=== PATIENT | male | born 1970 | race African-American/Black ===

== ENCOUNTER 2018-07-01 20:32 | Observation (INO) | payer MEDICARE, OTHER ==
[~2018-07-01] VITALS: Ht 171.4 cm; Wt 124.4 kg
--- NOTE | 2018-07-01 20:45 | NUR ---
pt informed of anticipated wait times for lab/xray. pt denies needs at this time.
[2018-07-01 20:57] LABS: BASOPHILS % (AUTO) 0 % (0-10); EOSINOPHILS # (AUTO) 0.1 10^3/uL (0.0-0.3); EOSINOPHILS % (AUTO) 2 % (0-10); HEMATOCRIT 43 % (40-54); HEMOGLOBIN 14.2 G/DL (13.3-17.7); LYMPHOCYTES # (AUTO) 2.1 X 10^3 (1.0-4.0); LYMPHOCYTES % (AUTO) 26 % (12-44); MEAN CORPUSCULAR HEMOGLOBIN 27 PG (25-34); MEAN CORPUSCULAR HGB CONC 33 G/DL (32-36); MEAN CORPUSCULAR VOLUME 83 FL (80-99); MEAN PLATELET VOLUME 11.3 FL (7.4-10.4); MONOCYTES # (AUTO) 0.5 X 10^3 (0.0-1.0); MONOCYTES % (AUTO) 6 % (0-12); NEUTROPHILS # (AUTO) 5.3 X 10^3 (1.8-7.8); NEUTROPHILS % (AUTO) 66 % (42-75); PLATELET COUNT 229 10^3/uL (130-400); RED CELL DISTRIBUTION WIDTH 15.4 % (10.0-14.5)
[2018-07-01] MEDS ORDERED: CARV6.252 PO (21:00)
[2018-07-01] MEDS ORDERED: HYDR12.56 PO (21:00)
[2018-07-01] MEDS ORDERED: AMLO10TA7 PO (21:00)
--- NOTE | 2018-07-01 21:08 | Diagnostic Imaging Report ---
INDICATION: Hypertension. COMPARISON: No prior examination is available for comparison. EXAMINATION: Single view of the chest was obtained. FINDINGS: There is cardiomegaly. The mediastinum is unremarkable. Lungs are clear. There is no pleural effusion or pneumothorax. IMPRESSION: 1. No acute cardiopulmonary abnormality. 2. Cardiomegaly. Dictated by: Dictated on workstation # [id number]
[2018-07-01] MEDS ORDERED: cloNIDine 0.2 MG (CATAPRES) TAB PO ONE (21:15)
[2018-07-01] MEDS ORDERED: cloNIDine 0.1 MG (CATAPRES) TAB PO ONE (21:15)
[2018-07-01] MEDS ORDERED: ASPIRIN 81 MG CHEW (CHILDREN'S ASA) PO ONE (21:15)
[2018-07-01 21:17] LABS: ALANINE AMINOTRANSFERASE 25 U/L (0-55); ALBUMIN 4.5 GM/DL (3.2-4.5); ALKALINE PHOSPHATASE 65 U/L (40-136); BILIRUBIN,TOTAL 0.5 MG/DL (0.1-1.0); BUN/CREATININE RATIO 10; CALCIUM 9.9 MG/DL (8.5-10.1); CARBON DIOXIDE 23 MMOL/L (21-32); CHLORIDE 102 MMOL/L (98-107); CREATININE SERUM 1.26 MG/DL (0.60-1.30); GFR ESTIMATED > 60; GLUCOSE 151 MG/DL (70-105); POTASSIUM 3.6 MMOL/L (3.6-5.0); SODIUM 139 MMOL/L (135-145); TOTAL PROTEIN 8.5 GM/DL (6.4-8.2)
[2018-07-01] MEDS ORDERED: HYDR50CA3 PO (21:18)
[2018-07-01] MEDS ORDERED: PRAZ2CAP2 PO (21:18)
[2018-07-01] MEDS ORDERED: QUET400T12 PO (21:18)
[2018-07-01] MEDS: NITROGLYCERIN 0.4 MG SL TABS BTL 25'S SL PRN ×2 (21:21→21:27)
[2018-07-01 21:28] LABS: INR 0.9 (0.8-1.4)
--- NOTE | 2018-07-01 21:28 | NUR ---
pt reported nausea after 2nd ntg administered. erp notified, new order recieved.
[2018-07-01 21:29] LABS: MAGNESIUM 2.4 MG/DL (1.8-2.4)
[2018-07-01] MEDS ORDERED: ONDANSETRON 4 MG/2 ML (SDV) Z0FRAN IVP ONE (21:30)
[2018-07-01] MEDS ORDERED: HEParin DRIP 25000 UNIT/500ML 500 ML IV ONE (21:38)
--- NOTE | 2018-07-01 21:38 | NUR ---
zofran given, pt reports chest pain relieved. nausea improved. pt denies needs at this time.
[2018-07-01] MEDS ORDERED: HEParin 1000 UNIT/ML (10ML VIAL) FOR BOLUS IV ONE (21:45)
--- NOTE | 2018-07-01 21:45 | NUR ---
PT GIVEN URINAL, INFORMED OF NEED FOR URINE SPECIMEN.
--- NOTE | 2018-07-01 21:49 | ED Chest Pain ---
General Chief Complaint: Chest Pain Stated Complaint: BP 180/108, CONTINUOUSLY HIGH Nursing Triage Note: HYPERTENSION X4HRS, CHEST WALL TIGHTNESS X1 HR. Nursing Sepsis Screen: No Definite Risk Source: patient Exam Limitations: no limitations History of Present Illness Date Seen by Provider: July 01, 2018 Time Seen by Provider: 20:46 Initial Comments This 48-year-old gentleman presents to the emergency room with complaints of chest tightness and exacerbation of hypertension. He woke up not feeling well this morning. This afternoon he noted his blood pressure to be quite high. He checked his blood pressure because he was not feeling well. He reports compliance with his blood pressure medications this morning but measuring about pressure of 211/135 despite taking his medications. He took extra medications and had a follow-up blood pressure 178/108. He continued to take extra doses of his blood pressure medications totaling amlodipine 50 mg, carvedilol 150 mg, and 75 mg of hydrochlorothiazide. He has excessive urination as result. Patient s oskar he had a "cardiac event" in 2012 after working vigorously cutting wood. Patient sees a Dr. Saleem in [place]. He is in town visiting his sister. He states no definitive cardiac testing was performed when he was assessed for the "cardiac event" in 2012. Patient is a nonsmoker and denies any drug or alcohol use. He has no first-degree family history of heart disease. Allergies and Home Medications Allergies Coded Allergies: No Known Drug Allergies (Unverified , 07/01/18) Home Medications Amlodipine Besylate 10 Mg Tablet, 10 MG PO DAILY, (Reported) Carvedilol 6.25 Mg Tablet, Unknown Dose PO BID, (Reported) Patient Home Medication List Home Medication List Reviewed: Yes Review of Systems Review of Systems Constitutional: no symptoms reported EENTM: No Symptoms Reported Respiratory: No Symptoms Reported Cardiovascular: See HPI Gastrointestinal: No Symptoms Reported Genitourinary: See HPI Musculoskeletal: no symptoms reported Skin: no symptoms reported Psychiatric/Neurological: No Symptoms Reported Endocrine: No Symptoms Reported Hematologic/Lymphatic: No Symptoms Reported Past Adrcmgw-Aokmtc-Auevar Hx Past Med/Social Hx: Reviewed and Corrections made Patient Social History Alcohol Use: Rarely Uses Recreational Drug Use: No Smoking Status: Never a Smoker 2nd Hand Smoke Exposure: No Recent Foreign Travel: No Contact w/Someone Who Travel: No Recent Infectious Disease Expo: No Recent Hopitalizations: No Immunizations Up To Date Tetanus Booster (TDap): Unknown Seasonal Allergies Seasonal Allergies: No Past Medical History Surgeries: Yes (SCROTAL traumatic hematoma evacuation) Respiratory: No Cardiac: Yes Hypertension Neurological: No Genitourinary: No Gastrointestinal: No Musculoskeletal: Yes (L KNEE) Arthritis Endocrine: No HEENT: No Cancer: No Psychosocial: Yes Anxiety, PTSD (from experience) Integumentary: No Blood Disorders: No Physical Exam Vital Signs Vital Signs - First Documented Capillary Refill : Less Than 3 Seconds Height, Weight, BMI Height: 5'7.50" Weight: 248lbs. oz. 112.067865xe; BMI Method:Stated General Appearance: No Apparent Distress, WD/WN HEENT: PERRL/EOMI, Normal ENT Inspection Neck: Normal Inspection Respiratory: Chest Non Tender, Lungs Clear, Normal Breath Sounds, No Accessory Muscle Use, No Respiratory Distress Cardiovascular: Regular Rate, Rhythm, No Edema, No Murmur, Normal Peripheral Pulses Gastrointestinal: Normal Bowel Sounds, Non Tender, Soft Extremity: Normal Capillary Refill, Normal Inspection, Non Tender, No Calf Tenderness, No Pedal Edema, Other (negative Sage) Neurologic/Psychiatric: Alert, Oriented x3, No Motor/Sensory Deficits, Normal Mood/Affect, 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 Skin: Normal Color, Warm/Dry Progress/Results/Core Measures Results/Orders Lab Results Laboratory Tests Test 07/01/18 20:45 Range/Units White Blood Count 8.0 4.3-11.0 10^3/uL Red Blood Count 5.22 4.35-5.85 10^6/uL Hemoglobin 14.2 13.3-17.7 G/DL Hematocrit 43 40-54 % Mean Corpuscular Volume 83 80-99 FL Mean Corpuscular Hemoglobin 27 25-34 PG Mean Corpuscular Hemoglobin Concent 33 32-36 G/DL Red Cell Distribution Width 15.4 H 10.0-14.5 % Platelet Count 229 130-400 10^3/uL Mean Platelet Volume 11.3 H 7.4-10.4 FL Neutrophils (%) (Auto) 66 42-75 % Lymphocytes (%) (Auto) 26 12-44 % Monocytes (%) (Auto) 6 0-12 % Eosinophils (%) (Auto) 2 0-10 % Basophils (%) (Auto) 0 0-10 % Neutrophils # (Auto) 5.3 1.8-7.8 X 10^3 Lymphocytes # (Auto) 2.1 1.0-4.0 X 10^3 Monocytes # (Auto) 0.5 0.0-1.0 X 10^3 Eosinophils # (Auto) 0.1 0.0-0.3 10^3/uL Basophils # (Auto) 0.0 0.0-0.1 10^3/uL Prothrombin Time 13.0 12.2-14.7 SEC INR Comment 0.9 0.8-1.4 Activated Partial Thromboplast Time 33 24-35 SEC Sodium Level 139 135-145 MMOL/L Potassium Level 3.6 3.6-5.0 MMOL/L Chloride Level 102 98-107 MMOL/L Carbon Dioxide Level 23 21-32 MMOL/L Anion Gap 14 5-14 MMOL/L Blood Urea Nitrogen 13 7-18 MG/DL Creatinine 1.26 0.60-1.30 MG/DL Estimat Glomerular Filtration Rate > 60 BUN/Creatinine Ratio 10 Glucose Level 151 H 70-105 MG/DL Calcium Level 9.9 8.5-10.1 MG/DL Corrected Calcium 9.5 8.5-10.1 MG/DL Magnesium Level 2.4 1.8-2.4 MG/DL Total Bilirubin 0.5 0.1-1.0 MG/DL Aspartate Amino Transf (AST/SGOT) 16 5-34 U/L Alanine Aminotransferase (ALT/SGPT) 25 0-55 U/L Alkaline Phosphatase 65 40-136 U/L Myoglobin 38.1 10.0-92.0 NG/ML Troponin I < 0.028 <0.028 NG/ML Total Protein 8.5 H 6.4-8.2 GM/DL Albumin 4.5 3.2-4.5 GM/DL My Orders Orders - PEDRO MON MD Magnesium (07/01/18 21:15) Myoglobin Serum (07/01/18 21:15) Protime With Inr (07/01/18 21:15) Partial Thromboplastin Time (07/01/18 21:15) O2 (07/01/18 21:15) Lipid Panel (07/02/18 06:00) Nitroglycerin 0.4 Mg Btl 25's (Nitrostat (07/01/18 21:15) Aspirin Chewable Tablet (Baby Aspirin Ch (07/01/18 21:15) Ekg Tracing (07/01/18 21:15) Ondansetron Injection (Zofran Injectio (07/01/18 21:30) Drug Screen Stat (Urine) (07/01/18 21:32) Thyroid Analyzer (07/01/18 21:32) Heparin Drip [id number] Unit/500ml (Heparin (07/01/18 21:38) Heparin (Bolus Per Protocol) (Heparin (B (07/01/18 21:45) Medications Given in ED Current Medications Medications Dose Ordered Sig/Radha Route Start Time Stop Time Status Last Admin Dose Admin Aspirin 324 mg ONCE ONCE PO 07/01/18 21:15 07/01/18 21:18 DC 07/01/18 21:21 324 MG Heparin Sodium (Porcine) HEPARIN FULL PROTOC... ONCE ONCE IV 07/01/18 21:45 07/01/18 21:46 DC 07/01/18 21:51 5,000 UNIT Heparin Sodium/ Dextrose 500 ml @ 0 mls/hr Q0M ONCE IV 07/01/18 21:38 07/01/18 21:40 DC 07/01/18 21:51 0 MLS/HR Nitroglycerin 0.4 mg UD PRN SL 07/01/18 21:15 07/01/18 21:27 0.4 MG Ondansetron HCl 8 mg ONCE ONCE IVP 07/01/18 21:30 07/01/18 21:32 DC 07/01/18 21:38 8 MG Vital Signs/I&O 07/01/18 07/01/18 07/01/18 20:37 20:37 21:07 Temp 97.8 97.8 Pulse 68 68 Resp 16 16 B/P (MAP) 171/117 (135) 170/82 (111) Pulse Ox 97 97 O2 Delivery Room Air Room Air Room Air Blood Pressure Mean: 111 Progress Progress Note : Time: 21:44 Progress Note I assumed care of this patient from Neelima Dobson APRN after review of the EKG. There are ST changes most prominent in V1 and V2. ST elevation appears borderline in morphology but in the context of his chest pain they are concerning. Patient received aspirin and nitroglycerin 2 doses. His pain improved from 6/10 down to 2/10 and his blood pressure dropped significantly. I discussed the case with Dr. Beard who also digitally reviewed the EKGs. Plan at this time is to take him to the [facility] for further evaluation. Heparin drip will be initiated in the meantime. EKG #1: EKG Time: 21:03 Rate: 67 Rhythm: Normal Sinus Intervals: Normal Comment Sinus rhythm with ST elevation of borderline amplitude and morphology most prominent in V1 and V2. No abnormal intervals. LVH noted. EKG #2: EKG Time: 21:33 Rate: 58 Rhythm: Normal Sinus Intervals: Normal Comment Sinus rhythm with ST elevation of borderline amplitude and morphology most prominent in V1 and V2. ST elevation slightly more prominent than on the prior EKG. No abnormal intervals. LVH noted. Diagnostic Imaging Diagonstic Imaging: Xray Plain Films/CT/US/NM/MRI: chest Comments NAME: TAMMY GARNICA [facility] REC#: [id number] PT STATUS: DEP ER : 1970 PHYSICIAN: NEELIMA LOVE ADMIT DATE: 07/01/18/ER Signed Date of Exam: 07/01/18 CHEST 1 VIEW, AP/PA ONLY INDICATION: Hypertension. COMPARISON: No prior examination is available for comparison. EXAMINATION: Single view of the chest was obtained. FINDINGS: There is cardiomegaly. The mediastinum is unremarkable. Lungs are clear. There is no pleural effusion or pneumothorax. IMPRESSION: 1. No acute cardiopulmonary abnormality. 2. Cardiomegaly. Dictated by: Dictated on workstation # [id number] Dict: 07/01/182104 Trans: 07/01/182120 Interpreted by: TANNER CHRIS MD Electronically signed by: TANNER CHRIS MD 07/01/182120 Departure Impression Primary Impression: Hypertensive emergency Additional Impressions: Chest pain Qualified Codes: R07.9 - Chest pain, unspecified ST elevation Disposition: 01 HOME, SELF-CARE Condition: Improved Admissions Decision to Admit Reason: Admit from ER (General) Decision to Admit/Date: July 01, 2018 Time/Decision to Admit Time: 21:44 Departure-Patient Inst. Referrals: NO,LOCAL PHYSICIAN (PCP) Primary Care Physician PEDRO MON MD July 01, 2018 21:49
--- NOTE | 2018-07-01 21:50 | NUR ---
2nd iv site obtained. pt denies needs.
--- NOTE | 2018-07-01 22:26 | NUR ---
DR WEINER HERE SEEING PATIENT.
[2018-07-01] MEDS ORDERED: fentaNYL INJECTION 100 MCG/2 ML AMP ONE (22:45)
[2018-07-01] MEDS ORDERED: MIDAZOLAM 5 MG/5 ML (VERSED) VIAL ONE (22:45)
[2018-07-01] MEDS ORDERED: HEParin (CATH LAB) 2,000 ML IV ONE (22:45)
[2018-07-01] MEDS ORDERED: LIDOCAINE 1% INJ 20 ML 20 ML VIAL ONE (22:45)
[2018-07-01] MEDS ORDERED: NS IV 1000 ML 1,000 ML ONE (22:45)
--- NOTE | 2018-07-01 22:45 | Cardiology History & Physical ---
HPI-Cardiology Cardiology H&P Date of Admission 07/01/18 Primary Care Physician Alba,Local Physician Attending Physician Rashel Beard MD, MA FACP [facility] Consulting Physician RAJAT CC: Chest pain, uncontrolled hypertension HPI: 48 yo man who is visiting from [place] and who noted his bp to be markedly elevated earlier today. This caused him anxiety and he has been taking several of his bp med. According to him he took 150 mg carvedilol at home earlier today and also several tabs of HCTZ. He began to have midsternal chest discomfort with some radiation to shoulders and feeling of anxiety. This lasted a few hours. In the ER, he received s/l NTG and symptoms gradually subsided. Still has some waxing and waning chest pressure. Is concerned that the chest discomfort is coming from his heart. Denies palp or syncope. Has chronic mild to mod exertional shortness of breath. Review of Systems-Cardiology Review of Systems Constitutional: malaise; No weight loss, No weight gain Eyes: No vision change Ears/Nose/Throat: No ear discharge, No nasal drainage, No recent hearing loss Respiratory: As described under HPI Cardiovascular: As described under HPI Gastrointestinal: No constipation, No diarrhea, No nausea, No vomiting Genitourinary: No dysuria, No hematuria, No urine frequency changes Musculoskeletal: No back pain, No joint pain Skin: No rash, No ulcerations Psychiatric/Neurological: No seizure, No focal weakness Hematologic: No bleeding abnormalities CMG-Skianb-Xeqrzv Hx Patient Social History Alcohol Use: Rarely Uses Recreational Drug Use: No Smoking Status: Never a Smoker 2nd Hand Smoke Exposure: No Recent Foreign Travel: No Recent Infectious Disease Expo: No Hospitalization with Isolation: Denies Immunizations Up To Date Tetanus Booster (TDap): Unknown Past Medical History PMH As described under Assessment. Allergies and Home Medications Allergies Coded Allergies: No Known Drug Allergies (Unverified , 07/01/18) Home Medications Amlodipine Besylate 10 Mg Tablet, 10 MG PO DAILY, (Reported) Carvedilol 6.25 Mg Tablet, Unknown Dose PO BID, (Reported) Patient Home Medication List Home Medication List Reviewed: Yes Physical Exam-Cardiology Physical Exam Vital Signs/I&O 07/01/18 07/01/18 07/01/18 20:37 20:37 21:07 Temp 97.8 97.8 Pulse 68 68 Resp 16 16 B/P (MAP) 171/117 (135) 170/82 (111) Pulse Ox 97 97 O2 Delivery Room Air Room Air Room Air Capillary Refill : Less Than 3 Seconds Constitutional: AAO x 3, well-developed, well-nourished HEENT: EOMI, hearing is well preserved, oral hygience is good; No xanthelasmas are seen Neck: No carotid bruit; carotid pulses are 2 + bilaterally Respiratory: No accessory muscle use; other (good bilat air entry) Cardiovascular: regular rate-rhythm, S1 and S2; No systolic murmur Gastrointestinal: No tender; soft; No guarding; audible bowel sounds Extremities: No clubbing, No cyanosis, No significant edema Neurologic/Psychiatric: oriented x 3, grossly intact, power is 5/5 both on sides Skin: No rash on exposed areas, No ulcerations on exposed areas Data Review Labs Laboratory Tests 07/01/18 20:45: White Blood Count 8.0, Red Blood Count 5.22, Hemoglobin 14.2, Hematocrit 43, Mean Corpuscular Volume 83, Mean Corpuscular Hemoglobin 27, Mean Corpuscular Hemoglobin Concent 33, Red Cell Distribution Width 15.4H, Platelet Count 229, Mean Platelet Volume 11.3H, Neutrophils (%) (Auto) 66, Lymphocytes (%) (Auto) 26, Monocytes (%) (Auto) 6, Eosinophils (%) (Auto) 2, Basophils (%) (Auto) 0, Neutrophils # (Auto) 5.3, Lymphocytes # (Auto) 2.1, Monocytes # (Auto) 0.5, Eosinophils # (Auto) 0.1, Basophils # (Auto) 0.0, Prothrombin Time 13.0, INR Comment 0.9, Activated Partial Thromboplast Time 33, Sodium Level 139, Potassium Level 3.6, Chloride Level 102, Carbon Dioxide Level 23, Anion Gap 14, Blood Urea Nitrogen 13, Creatinine 1.26, Estimat Glomerular Filtration Rate > 60, BUN/Creatinine Ratio 10, Glucose Level 151H, Calcium Level 9.9, Corrected Calcium 9.5, Magnesium Level 2.4, Total Bilirubin 0.5, Aspartate Amino Transf (AST/SGOT) 16, Alanine Aminotransferase (ALT/SGPT) 25, Alkaline Phosphatase 65, Myoglobin 38.1, Troponin I < 0.028, Total Protein 8.5H, Albumin 4.5, TSH [place] Testing 1.20 Laboratory Tests 07/01/18 20:45 A/P-Cardiology Assessment/Admission Diagnosis Chest pain Uncontrolled hypertension Abnormal ECG: LVH with repol abn vs cor ischemia Admission Status: Observation Discussion and Recomendations * Given multiple risk factors and continuing chest pains, it appears reasonable to proceed with card cath * I had detailed discussion with him. I explained the procedure, rationale, risks, benefits, potential complications and alternatives of cath and possible ad hoc cor intervention. He understands and wishes to proceed * For treatment of hypertension, we are continuing his home meds and adding hydr alazine * Further recs to be based on hosp course Clinical Quality Measures AMI/AHF: ASA po Prior to arrival: RASHEL Snell MD FACP FAC CCDS July 01, 2018 22:45
[2018-07-01] MEDS ORDERED: ACETAMINOPHEN 325 MG TABLET PO PRN (23:00)
[2018-07-01] MEDS ORDERED: TEMAZEPAM 15 MG (RESTORIL) CAP PO PRN (23:00)
--- NOTE | 2018-07-01 23:00 | NUR ---
PT DEPARTED WITH QUALITY ASSOCIATE STAFF.
--- NOTE | 2018-07-01 23:23 | Cardiac Procedure Note-CS/ASA ---
Pre-Procedure Note Pre-Op Procedure Note H&P Reviewed The H&P was reviewed, patient examined and no changes noted. Date H&P Reviewed: July 01, 2018 Time H&P Reviewed: 23:23 Conscious Sedation Pre-Proced Time 23:23 ASA Score 3 For ASA 3 and 4: Consider anesthesia and medical clearance. Also, for patients with a history of failed moderate sedation consider anesthesia. Airway Lungs Heart ASA score ASA 1: a normal healthy patient ASA 2: a patient with a mild systemic disease (mid diabetes, controlled hypertension, obesity ASA 3: a patient with a severe systemic disease that limits activity (angina, COPD, prior Myocardial infarction) ASA 4: a patient with an incapacitating disease that is a constant threat to life (CHF, renal failure) ASA 5: a moribund patient not expected to survive 24 hrs. (ruptured aneurysm) ASA 6: a declared brain- patient whose organs are being harvested. For emergent operations, add the letter E after the classification Mallampati Classification Grade 2 Sedation Plan Analgesia, Amnesia, Plan communicated to team members, Discussed options with patient/fam, Discussed risks with patient/fam The patient is an appropriate candidate to undergo the planned procedure, sedation, and anesthesia. The patient immediately re-assessed prior to indication. PAMELA LAZO MD FACP FAC CCDS July 01, 2018 23:23
[2018-07-01] MEDS ORDERED: NS IV 1000 ML 1,000 ML IV SCH (23:49)
[2018-07-02] VITALS (12 sets, daily range): BP systolic 115–153; BP diastolic 70–98
[2018-07-02] MEDS ORDERED: PATIENT MAY USE OWN MEDS, ALL PO SCH
[2018-07-02 03:54] LABS: MEAN PLATELET VOLUME 11.6 FL (7.4-10.4); RED CELL DISTRIBUTION WIDTH 15.5 % (10.0-14.5); WHITE BLOOD COUNT 8.1 10^3/uL (4.3-11.0)
[2018-07-02 04:12] LABS: BUN/CREATININE RATIO 11; CALCIUM 9.3 MG/DL (8.5-10.1); CARBON DIOXIDE 20 MMOL/L (21-32); CHLORIDE 104 MMOL/L (98-107); CHOLESTEROL 203 MG/DL (< 200); CREATININE SERUM 1.22 MG/DL (0.60-1.30); GFR ESTIMATED > 60; GLUCOSE 121 MG/DL (70-105); HDL CHOLESTEROL 39 MG/DL (40-60); POTASSIUM 3.6 MMOL/L (3.6-5.0); SODIUM 137 MMOL/L (135-145); TRIGLYCERIDES 190 MG/DL (<150); VLDL CHOLESTEROL 38 MG/DL (5-40)
--- NOTE | 2018-07-02 04:48 | CARDIAC CATHETERIZATION ---
DATE OF SERVICE: 07/01/2018 CARDIAC CATHETERIZATION REPORT HISTORY OF PRESENT ILLNESS: The patient is a 48-year-old man who has multiple coronary artery disease risk factors, who presented to the emergency room with the chest pain and uncontrolled hypertension. Echocardiogram was consistent with coronary ischemia. Due to continuing symptoms, cardiac catheterization was carried out. Informed consent was obtained. PROCEDURES: She was brought to the cardiac catheterization laboratory. Right groin was prepared and draped in the usual sterile fashion. Lidocaine 1% was used for local anesthesia. Modified Seldinger technique was used to advance a 6-Bahamian sheath into the right femoral artery. A 6-Bahamian JL4 catheter for left coronary angiography, 6-Bahamian JR4 catheter for right coronary angiography and 6-Bahamian pigtail catheter was used for left heart catheterization and left ventricular angiography. Pigtail was pulled back to the aortic arch. Aortic arch angiography was performed. Pigtail catheter was removed. Angiography of the right femoral artery was carried out through the sheath. Mynx was used to achieve hemostasis. He tolerated the procedure well. HEMODYNAMICS: Left ventricular end-diastolic pressure following coronary angiography was 23 mmHg. There is no significant pressure gradient on pullback across the aortic valve. Ascending aortic pressure was 117/82 with a mean of 100 mmHg. CORONARY ANGIOGRAPHY: Left main coronary artery is free of significant disease. Left anterior descending, left circumflex and right coronary arteries do not exhibit angiographically significant disease. Right coronary artery is dominant. Flow through the vessel is somewhat sluggish. LEFT VENTRICULAR ANGIOGRAPHY: Left ventricular angiography was carried out in right anterior oblique projection. Global left ventricular systolic function is normal. No regional wall motion abnormalities were seen. Left ventricular ejection fraction approximately 60% to 65%. AORTIC ARCH ANGIOGRAPHY: Aortic arch angiography does not indicate any significant aneurysm or dissection of the aortic arch or the descending thoracic aorta. No coarctation of the aorta is seen. Neck arteries, to the extent visualized, do not exhibit significant disease. CONCLUSIONS: 1. No angiographically significant coronary artery disease. 2. Normal global left ventricular systolic function with ejection fraction 65%. 3. Elevated left ventricular end-diastolic pressure. DISCUSSION AND RECOMMENDATIONS: Based on results of the study, chest discomfort does not appear to be of coronary origin. Continuing risk factor modification is advised. Job ID: [id number] DocumentID: [id number] Dictated Date: 07/01/2018 23:45:56 Recruitment Intern Date: 07/02/2018 04:48:02 Dictated By: PAMELA LAZO MD, MA, FACP, FACC, MTDD
[2018-07-02] MEDS ORDERED: hydrALAZINE (APRESOLINE) 25 MG TAB PO SCH (06:00)
[2018-07-02] MEDS ORDERED: HYDROCHLOROTHIAZIDE 25 MG (HCTZ) TAB PO SCH (09:00)
[2018-07-02] MEDS ORDERED: amLODIPine 10 MG (NORVASC) TAB PO SCH (09:00)
[2018-07-02] MEDS ORDERED: CARVEDILOL 12.5 MG (COREG) TABLET PO SCH (09:00)
[2018-07-02] MEDS ORDERED: ASPIRIN 81 MG CHEW (CHILDREN'S ASA) PO SCH (09:00)
[2018-07-02] MEDS ORDERED: HYDR-3923 PO (11:17)
[2018-07-02] MEDS ORDERED: CARV12.53 PO (11:17)
[2018-07-02] MEDS ORDERED: HYDR12.56 PO (11:17)
--- NOTE | 2018-07-02 11:25 | Progress Note-Cardiology ---
Cardiology SOAP Progress Note Subjective: No cp or palp or syncope or shortness of breath or groin discomfort Wishes to go home Objective: I&O/Vital Signs 07/02/18 07/02/18 07/02/18 07/02/18 00:00 00:15 00:30 00:45 Temp 97.0 Pulse 59 59 58 Resp 11 13 14 B/P (MAP) 128/86 (100) 119/75 (90) 128/70 (89) Pulse Ox 98 98 98 O2 Delivery Room Air Room Air Room Air Room Air 07/02/18 07/02/18 07/02/18 07/02/18 01:00 01:00 01:30 02:00 Pulse 57 58 74 55 Resp 14 18 13 B/P (MAP) 133/77 (95) 131/88 (102) 121/93 (102) Pulse Ox 98 98 98 O2 Delivery Room Air Room Air Room Air 07/02/18 07/02/18 07/02/18 07/02/18 03:00 04:00 05:00 06:00 Pulse 56 66 62 60 Resp 13 24 13 14 B/P (MAP) 129/83 (98) 148/89 (108) 153/98 (116) 140/88 (105) Pulse Ox 99 91 98 97 O2 Delivery Room Air Room Air Room Air Room Air 07/02/18 07/02/18 07/02/18 07/02/18 07:00 07:00 08:00 08:26 Temp 97.3 Pulse 72 57 72 Resp 14 18 B/P (MAP) 139/98 (112) 115/72 (86) Pulse Ox 99 99 O2 Delivery Room Air Room Air Room Air Weight (Pounds): 274 Weight (Ounces): 5.0 Weight (Calculated Kilograms): 124.972177 Condition: DP/PT pulses palpable Bruising: mild bruising Constitutional: AAO x 3, well-developed, well-nourished Respiratory: other Cardiovascular: regular rate-rhythm, S1 and S2 Gastrointestional: soft, audible bowel sounds Extremities: No clubbing, No cyanosis, No significant edema Neurologic/Psychiatric: oriented x 3, grossly intact, power is 5/5 both on sides Skin: No rash on exposed areas, No ulcerations on exposed areas Results/Procedures: Labs Laboratory Tests 07/01/18 20:45: White Blood Count 8.0, Red Blood Count 5.22, Hemoglobin 14.2, Hematocrit 43, Mean Corpuscular Volume 83, Mean Corpuscular Hemoglobin 27, Mean Corpuscular Hemoglobin Concent 33, Red Cell Distribution Width 15.4H, Platelet Count 229, Mean Platelet Volume 11.3H, Neutrophils (%) (Auto) 66, Lymphocytes (%) (Auto) 26, Monocytes (%) (Auto) 6, Eosinophils (%) (Auto) 2, Basophils (%) (Auto) 0, Neutrophils # (Auto) 5.3, Lymphocytes # (Auto) 2.1, Monocytes # (Auto) 0.5, Eosinophils # (Auto) 0.1, Basophils # (Auto) 0.0, Prothrombin Time 13.0, INR Comment 0.9, Activated Partial Thromboplast Time 33, Sodium Level 139, Potassium Level 3.6, Chloride Level 102, Carbon Dioxide Level 23, Anion Gap 14, Blood Urea Nitrogen 13, Creatinine 1.26, Estimat Glomerular Filtration Rate > 60, BUN/Creatinine Ratio 10, Glucose Level 151H, Calcium Level 9.9, Corrected Shalom cium 9.5, Magnesium Level 2.4, Total Bilirubin 0.5, Aspartate Amino Transf (AST/SGOT) 16, Alanine Aminotransferase (ALT/SGPT) 25, Alkaline Phosphatase 65, Myoglobin 38.1, Troponin I < 0.028, Total Protein 8.5H, Albumin 4.5, TSH [place] Testing 1.20 07/02/18 03:18: White Blood Count 8.1, Red Blood Count 4.93, Hemoglobin 13.0L, Hematocrit 41, Mean Corpuscular Volume 84, Mean Corpuscular Hemoglobin 26, Mean Corpuscular Hemoglobin Concent 32, Red Cell Distribution Width 15.5H, Platelet Count 210, Mean Platelet Volume 11.6H, Sodium Level 137, Potassium Level 3.6, Chloride Level 104, Carbon Dioxide Level 20L, Anion Gap 13, Blood Urea Nitrogen 14, Creatinine 1.22, Estimat Glomerular Filtration Rate > 60, BUN/Creatinine Ratio 11, Glucose Level 121H, Calcium Level 9.3, Triglycerides Level 190H, Cholesterol Level 203H, LDL Cholesterol Direct 140H, VLDL Cholesterol 38, HDL Cholesterol 39L Laboratory Tests 07/01/18 20:45 07/02/18 03:18 A/P: Assessment: Chest pain, etiology undetermined, now resolved Cardiac cath on 07/01/18: No significant CAD, LVEF 65%, elevated LVEDP (23 mmHg) Hypertension with hypertensive cardiovascular disease (elevated LVEDP, LVH with repolarization abnormality on ECG) Obesity with BMI approx 42 Plan: * I reviewed and discussed with him the findings of cardiac cath. Focus of management is on risk factor mod. This was discussed. Close outpatient f/u is advised with is PCP in [place] * We are continuing current antihypertensive regimen because bp is currently well controlled (see discharge orders) Clinical Quality Measures AMI/AHF: ASA po Prior to arrival: PAMELA Snell MD FACP FACC CCDS July 02, 2018 11:25
--- NOTE | 2018-07-02 11:29 | Discharge Inst-Cardiology ---
Discharge Inst-Cardiac Discharge Medications New Medications: Carvedilol (Carvedilol) 12.5 Mg Tablet 25 MG PO BID for 30 Days, #60 TAB 1 Refill Hydralazine HCl (Hydralazine HCl) 25 Mg Tablet 50 MG PO Q8HR for 30 Days, #90 TAB 1 Refill Hold if systolic blood pressure is less than 120 mmHg Changed Medications: Hydrochlorothiazide (Hydrochlorothiazide) 12.5 Mg Tablet 12.5 MG PO DAILY for 30 Days, #30 TAB 1 Refill (Changed from: Unknown Dose ; Refills: ) Continued Medications: Amlodipine Besylate (Amlodipine Besylate) 10 Mg Tablet 10 MG PO DAILY, TAB Hydroxyzine Pamoate (Hydroxyzine Pamoate) 50 Mg Capsule 50 MG PO BID, CAP Quetiapine Fumarate (Quetiapine Fumarate) 400 Mg Tablet 400 MG PO BID, TAB Discontinued Medications: Carvedilol (Carvedilol) 6.25 Mg Tablet Unknown Dose PO BID, TAB Prazosin HCl (Prazosin HCl) 2 Mg Capsule 6 MG PO DAILY, CAP PAMELA LAZO MD FACP FAC CCDS July 02, 2018 11:29
--- NOTE | 2018-07-02 11:30 | Discharge Inst-Post CATH ---
Discharge Inst-CATH/EP Post Cardiac Cath/EP D/C Inst Follow Up/Plan F/u with Dr Beard next week if still in [place], [place] F/u with family physician next week if returned to [place] ACTIVITY * Go Home directly and rest. * Limit activity of the leg (or wrist if it was used) for 7 days including aerobics, swimming, jogging, bicycling, etc. * Restrict stair-climbing for 7 days if possible, if not, climb up with your non-cath leg, then bring together on the same step. * Avoid lifting, pushing, pulling or excessive movement of the affected extremity for 7 days. * Customary sexual activity may be resumed after 2 days-use caution not to use a position that strains or causes pain to the affected extremity. * No driving for 24 hours. * NO SMOKING. * Avoid straining for bowel movements for 7 days. * Gentle walking on level ground is allowed. * Returning to work will depend on the type of procedure and the results. Your doctor will discuss this with you. CALL YOUR DOCTOR FOR ANY OF THE FOLLOWING: *If bleeding from the puncture site occurs- Apply gentle pressure to site with clean cloth and call your doctor or EMS. * If a knot or lump forms under the skin, increases in size, or causes pain. * If bruising appears to be worsening or moving further down your leg instead of disappearing. * Temperature above 101 F. CARE OF YOUR GROIN INCISION; * Bruising or purple discoloration of the skin near the puncture site is common. * You may shower only, no bathtub bathing for 5 days. Be careful to avoid slipping as your leg may feel stiff. * If a closure device was used on your femoral artery, please see the attached guide regarding care of the device and your leg. * Leave dressing on FOR 24 hours. CARE OF YOUR WRIST INCISION; * Bruising or purple discoloration of the skin near the puncture site is common. * You may shower. * DO NOT submerge wrist. * Leave dressing on FOR 24 hours. PAMELA BEARD MD FACP FAC CCDS July 02, 2018 11:30
[2018-07-02] MEDS ORDERED: KCL 20 MEQ TAB (K-DUR) PO NR (11:38)
--- NOTE | 2018-07-02 17:14 | Cardiology Discharge Summary ---
Diagnosis/Chief Complaint Date of Admission July 01, 2018 at 23:59 Date of Discharge July 02, 2018 at 12:05 Final/Discharge Diagnosis Chest pain, etiology undetermined, now resolved Cardiac cath on 07/01/18: No significant CAD, LVEF 65%, elevated LVEDP (23 mmHg) Hypertension with hypertensive cardiovascular disease (elevated LVEDP, LVH with repolarization abnormality on ECG) Echo of 07/02/18: mod concentric LVH, LVEF 60-65%, mildly dilated LA Obesity with BMI approx 42 Chief Complaint/HPI Chief Complaint/HPI CC: Chest pain, uncontrolled hypertension HPI: 48 yo man who is visiting from [place] and who noted his bp to be markedly elevated earlier today. This caused him anxiety and he has been taking several of his bp med. According to him he took 150 mg carvedilol at home earlier today and also several tabs of HCTZ. He began to have midsternal chest discomfort with some radiation to shoulders and feeling of anxiety. This lasted a few hours. In the ER, he received s/l NTG and symptoms gradually subsided. Still has some waxing and waning chest pressure. Is concerned that the chest discomfort is coming from his heart. Denies palp or syncope. Has chronic mild to mod exertional shortness of breath. Discharge Summary Procedures None. Discussion & Recommendations Home Medications Reviewed patient Home Medication Reconciliation performed by pharmacy medication reconciliations performing arts technicians and/or nursing. Patients Allergies have been reviewed. Discharge Home Medications: Reviewed and agree with Discharge Medication list on patient's Discharge Instruction sheet Instructions to patient/family F/u with Dr Beard next week if still in [place], [place] F/u with family physician next week if returned to [place] Clinical Quality Measures AMI/AHF: ASA po Prior to arrival: No DVT/VTE Risk/Contraindication: Risk Factor Score Per Nursin RFS Level Per Nursing on Admit: 1=Low/No VTE PPX PAMELA BEARD MD FACP FAC CCDS July 02, 2018 17:14
== END 2018-07-02 11:11 | disposition home or self-care (01) ==
LOC: ER 20:34 → CATH 22:13 → ICU 23:00 → CATH 23:06 → ICU 23:59 → UNDOADMIN 23:59 → UNDODISIN 07-02 12:05
PROVIDERS: ADMIT Internal Medicine Cardiovascular Disease; ATTEND Internal Medicine Cardiovascular Disease
DX: R07.9 Chest pain, unspecified (principal); I11.9 Hypertensive heart disease without heart failure; E66.9 Obesity, unspecified; Z68.41 Body mass index [BMI] 40.0-44.9, adult; Z79.899 Other long term (current) drug therapy; M19.91 Primary osteoarthritis, unspecified site; F41.9 Anxiety disorder, unspecified; F43.10 Post-traumatic stress disorder, unspecified
CPT/HCPCS: 36221; 36415; 71045; 80048; 80053; 80061; 83735; 83874; 84443; 84484; 85025; 85027; 85610; 85730; 93005; 93041; 93306; 93458; 96374; 96375

== ENCOUNTER 2022-05-24 20:19 | Emergency (ER) | payer MEDICARE, MEDICAID ==
[~2022-05-24] VITALS: Ht 170 cm; Wt 124.0 kg
[~2022-05-24 20:19] MED LIST: AMLO-251 PO; CARV12.53 PO; CARV6.252 PO; HYDR-3923 PO; HYDR12.56 PO; HYDR50CA3 PO; PRAZ2CAP2 PO; QUET400T13 PO
[2022-05-24] MEDS ORDERED: NS IV 1000 ML 1,000 ML IV STA (20:43)
[2022-05-24] MEDS ORDERED: hydrALAZINE (APESOLINE) 20 MG/ML VIAL IV ONE (20:45)
--- NOTE | 2022-05-24 20:47 | ED General ---
General Chief Complaint: Glucose Problems Stated Complaint: ELEV BLOOD SUGAR Nursing Triage Note: pt presents to ED with high blood sugar >290. pt has been out of meds x 2 days, delivery delay d/t . pt has confirmation that meds will arrive tomorrow but triage nurse told pt to come in. BP elevated at triage but pt has no complaints. Source of Information: Patient Exam Limitations: No Limitations History of Present Illness Date Seen by Provider: May 24, 2022 Time Seen by Provider: 20:45 Initial Comments Patient is a 52-year-old male with a history of diabetes, coronary artery disease, hypertension who presents ED for elevated blood sugar and elevated blood pressure. Patient states he has been out of his Jardiance and metformin over the past 2 days. States his blood sugar read as high as 293 today. States around 2:00 started having some lightheadedness, blurred vsion, and headache and took his blood sugar which read high. Did not eat this afternoon and evening and still read around 270. Type II diabetic denies history of insulin use. Patient also noted his blood pressure felt high. Patient has been out of his blood pressure medication over the past 2 days as well. Believes he is on amlodipine, lisinopril and Lasix. He is scheduled to get his medication tomorrow. Patient states the dizziness, lightheadedness, blurred vision and headache improved. Denies of any visual changes, chest pain, cough, shortness of breath, Arslan pain, leg swelling. No known history of kidney disease. Allergies and Home Medications Allergies Coded Allergies: No Known Drug Allergies (Unverified , 07/01/18) Patient Home Medication List Home Medication List Reviewed: Yes Amlodipine Besylate (Amlodipine Besylate) 10 Mg Tablet, 10 MG PO DAILY, (Reported) Entered as Reported by: DANIKA MOISE on 07/01/182099 Carvedilol (Carvedilol) 12.5 Mg Tablet, 25 MG PO BID Prescribed by: PAMELA LAZO on 07/02/18 111 Hydralazine HCl (Hydralazine HCl) 25 Mg Tablet, 50 MG PO Q8HR Prescribed by: PAMELA LAZO on 07/02/18 1117 Hydrochlorothiazide (Hydrochlorothiazide) 12.5 Mg Tablet, 12.5 MG PO DAILY Prescribed by: PAMELA LAZO on 07/02/18 1117 Hydroxyzine Pamoate (Hydroxyzine Pamoate) 50 Mg Capsule, 50 MG PO BID, (Reporte d) Entered as Reported by: DANIKA MOISE on 07/01/182117 Quetiapine Fumarate (Quetiapine Fumarate) 400 Mg Tablet, 400 MG PO BID, (Reported) Entered as Reported by: DANIKA MOISE on 07/01/182117 Review of Systems Review of Systems Constitutional: No chills, No diaphoresis, No malaise, No weakness EENTM: blurred vision; No hearing loss, No double vision Respiratory: No cough, No dyspnea on exertion Cardiovascular: No chest pain Gastrointestinal: No RUQ, No abdominal pain, No diarrhea, No nausea, No vomiting Genitourinary: No decreased output, No discharge Musculoskeletal: No back pain, No joint pain Skin: No change in color Psychiatric/Neurological: Headache, Other (Lightheadedness, dizziness) All Other Systems Reviewed Negative Unless Noted: Yes Past Uhnuqie-Cjklpd-Lylgsn Hx Patient Social History Tobacco Use?: No Substance use?: No Alcohol Use?: No Pt feels they are or have been: No Immunizations Up To Date Tetanus Booster (TDap): Unknown Influenza Vaccine Up-to-Date: No; Not Current Seasonal Allergies Seasonal Allergies: No Past Medical History Surgeries: Yes (SCROTAL traumatic hematoma evacuation) Respiratory: No Cardiac: Yes Hypertension Neurological: No Genitourinary: No Gastrointestinal: No Musculoskeletal: Yes (L KNEE) Arthritis Endocrine: No HEENT: No Cancer: No Psychosocial: Yes Anxiety, PTSD Integumentary: No Blood Disorders: No Physical Exam Vital Signs Vital Signs - First Documented 05/24/22 20:36 Temp 36.2 Pulse 101 Resp 20 B/P (MAP) 208/140 (162) Pulse Ox 98 O2 Delivery Room Air Capillary Refill : Less Than 3 Seconds Height, Weight, BMI Height: 5'7.50" Weight: 274lbs. 5.0oz. [id number]; 42.00 BMI Method:Stated General Appearance: No Apparent Distress, WD/WN Eyes: Bilateral Eye Normal Inspection, Bilateral Eye PERRL, Bilateral Eye EOMI HEENT: PERRL/EOMI, TMs Normal, Normal ENT Inspection, Pharynx Normal Neck: Full Range of Motion, Normal Inspection, Non Tender, Supple Respiratory: Chest Non Tender, Lungs Clear, Normal Breath Sounds, No Accessory Muscle Use, No Respiratory Distress Cardiovascular: Regular Rate, Rhythm, No Edema, No Gallop, No JVD, No Murmur Gastrointestinal: Normal Bowel Sounds, No Organomegaly, No Pulsatile Mass, Non Tender Back: Normal Inspection, No CVA Tenderness, No Vertebral Tenderness Extremity: Normal Capillary Refill, Normal Inspection, Normal Range of Motion, Non Tender Neurologic/Psychiatric: Alert, Oriented x3, No Motor/Sensory Deficits, Normal Mood/Affect, commodities trader II-XII Norm as Tested Skin: Normal Color, Warm/Dry Progress/Results/Core Measures Suspected Sepsis SIRS Temperature: Pulse: 101 Respiratory Rate: 20 Laboratory Tests 05/24/22 20:40: White Blood Count 7.6 Blood Pressure 208 /140 Mean: 162 Laboratory Tests 05/24/22 20:40: Creatinine 1.85H, Platelet Count 257, Total Bilirubin 0.3 Results/Orders Lab Results Laboratory Tests Test 05/24/22 20:30 05/24/22 20:40 05/24/22 22:12 Range/Units Glucometer 266 H 222 H 70-110 MG/DL White Blood Count 7.6 4.3-11.0 10^3/uL Red Blood Count 4.87 4.30-5.52 10^6/uL Hemoglobin 12.6 L 13.3-17.7 g/dL Hematocrit 40 40-54 % Mean Corpuscular Volume 81 80-99 fL Mean Corpuscular Hemoglobin 26 25-34 pg Mean Corpuscular Hemoglobin Concent 32 32-36 g/dL Red Cell Distribution Width 18.8 H 10.0-14.5 % Platelet Count 257 130-400 10^3/uL Mean Platelet Volume 10.5 9.0-12.2 fL Immature Granulocyte % (Auto) 0 % Neutrophils (%) (Auto) 63 42-75 % Lymphocytes (%) (Auto) 24 12-44 % Monocytes (%) (Auto) 7 0-12 % Eosinophils (%) (Auto) 5 0-10 % Basophils (%) (Auto) 1 0-10 % Neutrophils # (Auto) 4.8 1.8-7.8 10^3/uL Lymphocytes # (Auto) 1.8 1.0-4.0 10^3/uL Monocytes # (Auto) 0.5 0.0-1.0 10^3/uL Eosinophils # (Auto) 0.4 H 0.0-0.3 10^3/uL Basophils # (Auto) 0.1 0.0-0.1 10^3/uL Immature Granulocyte # (Auto) 0.0 0.0-0.1 10^3/uL Sodium Level 137 135-145 MMOL/L Potassium Level 3.3 L 3.6-5.0 MMOL/L Chloride Level 99 98-107 MMOL/L Carbon Dioxide Level 25 21-32 MMOL/L Anion Gap 13 5-14 MMOL/L Blood Urea Nitrogen 17 7-18 MG/DL Creatinine 1.85 H 0.60-1.30 MG/DL Estimat Glomerular Filtration Rate 43 BUN/Creatinine Ratio 9 Glucose Level 268 H 70-105 MG/DL Calcium Level 9.4 8.5-10.1 MG/DL Corrected Calcium 9.3 8.5-10.1 MG/DL Total Bilirubin 0.3 0.1-1.0 MG/DL Aspartate Amino Transf (AST/SGOT) 22 5-34 U/L Alanine Aminotransferase (ALT/SGPT) 27 0-55 U/L Alkaline Phosphatase 71 40-136 U/L Total Protein 8.4 H 6.4-8.2 GM/DL Albumin 4.1 3.2-4.5 GM/DL My Orders Orders - ESTELLE APPIAH Accucheck Stat ONCE (05/24/22 20:34) Cbc With Automated Diff (05/24/22 20:43) Comprehensive Metabolic Panel (05/24/22 20:43) Ns Iv 1000 Ml (Sodium Chloride 0.9%) (05/24/22 20:43) Hydralazine Injection (Apresoline Inject (05/24/22 20:45) Amlodipine Tablet (Norvasc Tablet) (05/25/22 09:00) Amlodipine Tablet (Norvasc Tablet) (05/24/22 20:59) Metformin Tablet (Glucophage Tablet) (05/24/22 21:20) Empagliflozin Tablet (Jardiance Tablet) (05/24/22 21:30) Hydrochlorothiazide Cap/Tablet (Hctz Cap (05/24/22 21:45) Medications Given in ED Vital Signs/I&O 05/24/22 05/24/22 20:36 22:55 Temp 36.2 Pulse 101 98 Resp 20 20 B/P (MAP) 208/140 (162) 167/116 Pulse Ox 98 98 O2 Delivery Room Air Room Air Capillary Refill : Less Than 3 Seconds Blood Pressure Mean: 162 Point of Care Testing Finger Stick Blood Glucose: 266 Departure Communication (PCP) Reviewed previous ER visits, H&P, lab testing. Patient is a 52-year-old male who is a type II diabetic, hypertension, coronary artery disease who presents ED for elevated blood pressure and blood sugar. Patient had some lightheadedness, dizziness today but did improve after drinking some fluids. Frequent urination. Denies chest pain, shortness of breath, abdominal pain, vomiting or diarrhea. Due to current complaint elevated blood pressure currently asymptomatic CBC, CMP, and a liter fluid was initiated. Patient blood pressure 208/140 on arrival. He has no focal neural deficits or neurological red flag findings. Patient blood sugar was 266. Normal anion gap. Potassium 3.3. Discussed oral potassium 40 mill equivalents over the next 3 days. Due to elevated blood p ressure patient was given 10 mg of IV hydralazine, 10 mg of his amlodipine and 12.5 mg of HCTZ. Patient takes amlodipine and hydrochlorothiazide for his blood pressure. Patient has been out of his blood pressure medication and diabetic medication over the past 2 days. Patient blood pressure improved 167/116. Patient was given his Jardiance 10mg and metformin 500mg which he typically takes daily. No evidence suggesting DKA and no history of using insulin. He did have a change in his creatinine 1.85 GFR 43. There is a slight change from his previous creatinine lab work in 2019. Could be result from his blood pressure. Patient did receive a liter of fluid. States he is tolerating fluids without any difficulties. concerning that this is secondary to his blood pressure. Patient has no chest pain or shortness of breath or difficulty. Patient has no focal neural deficits or neurological red flag findings suggesting stroke or requiring CT scan of the head. Patient was eagerly ready to be discharged. Abdirahman naranjo did not want to continue waiting. My concern is a change in kidney function and suggest a second liter of fluid and a recheck of his kidney function after fluid. Patient refused and states he will follow-up outpatient. He is scheduled to get his medication tomorrow. If any worsening symptoms return back to ED for further evaluation. Recommend follow-up with his primary care physician in the next 2 to 3 days for recheck of his kidney function. Recommend continue with your blood pressure medication and diabetic medication tomorrow. Impression Primary Impression: Hyperglycemia Additional Impression: Hypertensive urgency Disposition: 01 HOME, SELF-CARE Condition: Stable Departure-Patient Inst. Decision time for Depature: 22:35 [facility]: [facility] [place] PHYSICIAN (PCP) Primary Care Physician Patient Instructions: High Blood Pressure (DC) Add. Discharge Instructions: Continue staying hydrated. Continue monitoring blood sugar and blood pressure. If any worsening symptoms return back to ED. Follow-up with medication tomorrow All discharge instructions reviewed with patient and/or family. Voiced understanding.. ESTELLE APPIAH May 24, 2022 20:47
[2022-05-24 20:48] LABS: BASOPHILS # (AUTO) 0.1 10^3/uL (0.0-0.1); BASOPHILS % (AUTO) 1 % (0-10); EOSINOPHILS # (AUTO) 0.4 10^3/uL (0.0-0.3); EOSINOPHILS % (AUTO) 5 % (0-10); HEMATOCRIT 40 % (40-54); HEMOGLOBIN 12.6 g/dL (13.3-17.7); LYMPHOCYTES # (AUTO) 1.8 10^3/uL (1.0-4.0); LYMPHOCYTES % (AUTO) 24 % (12-44); MEAN CORPUSCULAR HEMOGLOBIN 26 pg (25-34); MEAN CORPUSCULAR HGB CONC 32 g/dL (32-36); MEAN CORPUSCULAR VOLUME 81 fL (80-99); MEAN PLATELET VOLUME 10.5 fL (9.0-12.2); MONOCYTES # (AUTO) 0.5 10^3/uL (0.0-1.0); MONOCYTES % (AUTO) 7 % (0-12); NEUTROPHILS # (AUTO) 4.8 10^3/uL (1.8-7.8); NEUTROPHILS % (AUTO) 63 % (42-75); PLATELET COUNT 257 10^3/uL (130-400); WHITE BLOOD COUNT 7.6 10^3/uL (4.3-11.0)
[2022-05-24] MEDS ORDERED: amLODIPine 5 MG (NORVASC) TAB ONE (20:59)
[2022-05-24 21:08] LABS: ALBUMIN 4.1 GM/DL (3.2-4.5); BILIRUBIN,TOTAL 0.3 MG/DL (0.1-1.0); CALCIUM 9.4 MG/DL (8.5-10.1); CREATININE SERUM 1.85 MG/DL (0.60-1.30); POTASSIUM 3.3 MMOL/L (3.6-5.0); TOTAL PROTEIN 8.4 GM/DL (6.4-8.2)
[2022-05-24] MEDS ORDERED: metFORMIN 500 MG (GLUCOPHAGE) TAB PO STA (21:20)
[2022-05-24] MEDS ORDERED: EMPAGLIFLOZIN 10 MG TABLET (JARDIANCE) PO ONE (21:30)
[2022-05-24] MEDS ORDERED: HydroCHLOROthiazide CAP/TABLET 12.5 MG TAB PO ONE (21:45)
[2022-05-24 22:55] VITALS: BP 167/116
[2022-05-25] MEDS ORDERED: amLODIPine 5 MG (NORVASC) TAB PO SCH (09:00)
== END 2022-05-24 22:56 | disposition home or self-care (01) ==
LOC: EDUNIT# 20:19 → ER 20:22
DX: E11.65 Type 2 diabetes mellitus with hyperglycemia (principal); I10 Essential (primary) hypertension; Z79.84 Long term (current) use of oral hypoglycemic drugs; Z79.899 Other long term (current) drug therapy
CPT/HCPCS: 36415; 80053; 82947; 85025

== ENCOUNTER 2022-11-17 19:07 | Observation (INO) | payer MEDICARE, MEDICAID ==
[~2022-11-17] VITALS: Ht 170 cm; Wt 129.3 kg
[2022-11-17] MEDS ORDERED: hydrALAZINE INJECTION 20 MG/ML VIAL IV ONE (19:30)
--- NOTE | 2022-11-17 19:33 | ED EENT ---
History of Present Illness General Chief Complaint: Ear Problems Stated Complaint: RINGING AND PAIN IN BOTH EARS Nursing Triage Note: PATIENT REPORTS EAR RINGING LUIS A. STATES PAIN AND PRESSURE. STARTED YESTERDAY. Source: patient Exam Limitations: no limitations History of Present Illness Date Seen by Provider: Nov 17, 2022 Time Seen by Provider: 19:29 Initial Comments Patient is a 52-year-old male who presents ED with bilateral ear ringing. These symptoms started yesterday morning. Hearing has been constant. Reports some bilateral ear fullness and pain. Pain around the ear. Also reports pain to the top part of his head described as more fullness. Denies of any hearing loss, visual changes, unilateral muscle weakness or sensory changes, fever, numbness, tingling, chills, chest pain, shortness of breath, cough, vomiting. Denies worst headache of his life. Denies of any specific injury. Patient is hypertensive. He is currently on hydrochlorothiazide, amlodipine and losartan for his blood pressure. Patient took some Aleve at home without much impro vement. 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 Patient denies history of stroke, coronary artery disease, COPD, asthma. Did have some dizziness yesterday but that has improved. Denies room spinning. Denies of any recent URI. No history of allergies. Denies excessive noise exposure. Denies of any head injury Allergies and Home Medications Allergies Coded Allergies: No Known Drug Allergies (Unverified , 07/01/18) Patient Home Medication List Home Medication List Reviewed: Yes Amlodipine Besylate (Amlodipine Besylate) 10 Mg Tablet, 10 MG PO DAILY, (Reported) Entered as Reported by: DANIKA MOISE on 07/01/182099 Carvedilol (Carvedilol) 12.5 Mg Tablet, 25 MG PO BID Prescribed by: PAMELA LAZO on 07/02/18 1117 Hydralazine HCl (Hydralazine HCl) 25 Mg Tablet, 50 MG PO Q8HR Prescribed by: PAMELA LAZO on 07/02/18 1117 Hydrochlorothiazide (Hydrochlorothiazide) 12.5 Mg Tablet, 12.5 MG PO DAILY Prescribed by: PAMELA LAZO on 07/02/18 1117 Hydroxyzine Pamoate (Hydroxyzine Pamoate) 50 Mg Capsule, 50 MG PO BID, (Reporte d) Entered as Reported by: DANIKA MOISE on 07/01/182117 Quetiapine Fumarate (Quetiapine Fumarate) 400 Mg Tablet, 400 MG PO BID, (Reported) Entered as Reported by: DANIKA MOISE on 07/01/182117 Review of Systems Review of Systems Constitutional: No chills, No diaphoresis Eyes: Denies Blurred Vision, Denies Drainage, Denies Decreased Acuity Ears: Dizziness; Denies Pain; Tinnitus Nose: denies clots, denies congestion, denies epistaxis, denies pain Mouth: denies loose teeth Throat: denies pain, denies swelling, denies discharge Respiratory: No cough, No dyspnea on exertion Cardiovascular: No chest pain, No edema Gastrointestinal: No abdominal pain, No diarrhea, No nausea, No vomiting Musculoskeletal: No back pain Skin: No change in color, No change in hair/nails Neurological: Denies Anxiety, Denies Depressed; Headache All Other Systems Reviewed Negative Unless Noted: Yes Past Kcttomx-Vgifie-Ditqst Hx Immunizations Up To Date Tetanus Booster (TDap): Unknown Seasonal Allergies Seasonal Allergies: No Past Medical History Surgeries: Yes (SCROTAL traumatic hematoma evacuation) Respiratory: No Cardiac: Yes Hypertension Neurological: No Genitourinary: No Gastrointestinal: No Musculoskeletal: Yes (L KNEE) Arthritis Endocrine: No HEENT: No Cancer: No Psychosocial: Yes Anxiety, PTSD Integumentary: No Blood Disorders: No Physical Exam Vital Signs Vital Signs - First Documented 11/17/22 19:17 Temp 37.1 Pulse 75 Resp 20 B/P (MAP) 214/141 (165) Pulse Ox 98 O2 Delivery Room Air Height, Weight, BMI Height: 5'7.50" Weight: 274lbs. 5.0oz. 124.353029af; 41.00 BMI Method:Stated General Appearance: WD/WN, no apparent distress Eyes: bilateral eye normal inspection, bilateral eye PERRL, bilateral eye EOMI Ears: bilateral ear other (Bilateral ear fullness without erythema, swelling. No ear canal erythema. No tragus tenderness bilateral. 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, no motor/sensory deficits, alert, normal mood/affect, oriented x 3 Skin: normal color Progress/Results/Core Measures Results/Orders Lab Results Laboratory Tests Test 11/17/22 19:50 Range/Units White Blood Count 7.4 4.3-11.0 10^3/uL Red Blood Count 4.71 4.30-5.52 10^6/uL Hemoglobin 12.9 L 13.3-17.7 g/dL Hematocrit 39 L 40-54 % Mean Corpuscular Volume 83 80-99 fL Mean Corpuscular Hemoglobin 27 25-34 pg Mean Corpuscular Hemoglobin Concent 33 32-36 g/dL Red Cell Distribution Width 17.2 H 10.0-14.5 % Platelet Count 223 130-400 10^3/uL Mean Platelet Volume 11.2 9.0-12.2 fL Immature Granulocyte % (Auto) 1 % Neutrophils (%) (Auto) 60 42-75 % Lymphocytes (%) (Auto) 30 12-44 % Monocytes (%) (Auto) 7 0-12 % Eosinophils (%) (Auto) 2 0-10 % Basophils (%) (Auto) 1 0-10 % Neutrophils # (Auto) 4.4 1.8-7.8 10^3/uL Lymphocytes # (Auto) 2.2 1.0-4.0 10^3/uL Monocytes # (Auto) 0.5 0.0-1.0 10^3/uL Eosinophils # (Auto) 0.2 0.0-0.3 10^3/uL Basophils # (Auto) 0.0 0.0-0.1 10^3/uL Immature Granulocyte # (Auto) 0.0 0.0-0.1 10^3/uL Neutrophils % (Manual) 63 % Lymphocytes % (Manual) 30 % Monocytes % (Manual) 4 % Eosinophils % (Manual) 3 % Poikilocytosis SLIGHT Anisocytosis SLIGHT Sodium Level 140 135-145 MMOL/L Potassium Level 3.7 3.6-5.0 MMOL/L Chloride Level 105 98-107 MMOL/L Carbon Dioxide Level 22 21-32 MMOL/L Anion Gap 13 5-14 MMOL/L Blood Urea Nitrogen 14 7-18 MG/DL Creatinine 1.55 H 0.60-1.30 MG/DL Estimat Glomerular Filtration Rate 53 BUN/Creatinine Ratio 9 Glucose Level 280 H 70-105 MG/DL Calcium Level 9.1 8.5-10.1 MG/DL Corrected Calcium 9.2 8.5-10.1 MG/DL Total Bilirubin 0.3 0.1-1.0 MG/DL Aspartate Amino Transf (AST/SGOT) 22 5-34 U/L Alanine Aminotransferase (ALT/SGPT) 30 0-55 U/L Alkaline Phosphatase 58 40-136 U/L Troponin I < 0.028 <0.028 NG/ML Total Protein 8.0 6.4-8.2 GM/DL Albumin 3.9 3.2-4.5 GM/DL My Orders Orders - ESTELLE APPIAH Ct Head Wo (11/17/22 19:27) Cbc And Manual Diff (11/17/22:27) Comprehensive Metabolic Panel (11/17/22 19:27) Hydralazine Injection (Hydralazine Injec (11/17/22 19:30) Labetalol Injection (Sdv) (Labetalol Inj (11/17/22 20:15) Troponin I Lila (11/17/22 20:11) Ekg Tracing (11/17/22 20:11) Labetalol Injection (Sdv) (Labetalol Inj (11/17/22 20:10) Ns (Ivpb) 250 Ml (S... W/Nicardipine Inj (11/17/22 21:06) Nicardipine Iv(Pyxis Drip Kit) (Nicardip (11/17/22 21:09) Ns (Ivpb) 250 Ml (Sodium Chloride 0.9% 2 (11/17/22 21:10) Medications Given in ED Current Medications Medications Dose Ordered Sig/Radha Route Start Time Stop Time Status Last Admin Dose Admin Hydralazine HCl 10 mg ONCE ONCE IV 11/17/22 19:30 11/17/22 19:31 DC 11/17/22 19:46 10 MG Labetalol HCl 10 mg ONCE ONCE IV 11/17/22 20:15 11/17/22 20:16 DC 11/17/22 20:11 20 MG Vital Signs/I&O 11/17/22 11/17/22 11/17/22 19:17 21:17 21:40 Temp 37.1 Pulse 75 Resp 20 B/P (MAP) 214/141 (165) 207/118 196/109 Pulse Ox 98 O2 Delivery Room Air Comment Sinus rhythm, ST deviation moderate T wave normality in the lateral leads, ST deviation moderate T wave normality in the inferior leads 87 bpm, QRS duration 84 minutes, QTc 411 MS Departure Communication (PCP) Patient with a history of hypertension. Does take amlodipine, losartan and hydrochlorothiazide and another medication which she cannot recall. Bilateral ear ringing. Reports ear fullness and pain. Reports bilateral head pain and occipital head pain that started yesterday. Rates pain 6 out of 10. episode of dizziness yesterday but that improved. No evidence of nystagmus. Steady gait. Denies of any unilateral muscle weakness or sensory changes, visual changes or vomiting. No strokelike symptoms. Denies history of headaches. denies chest pain or shortness of breath. Patient was hypertensive on arrival. Exam of bilateral ears did not show any evidence of earwax, ear infection or significant fluid behind the ears. No recent URI. Does not appear to be on any type of medication that is leyda toxic. No specific head injury. Denies exposure to loud noises. Patient has no TMJ tenderness. Patient is diabetic. No history of migraines. Denies history anemia or autoimmune disorders. Due to his elevated blood pressure of 214/141 CT scan of his head was ordered, CBC, CMP, troponin, EKG and started on IV hydralazine 10 mg. EKG showed sinus rhythm with ST deviation and moderate T wave abnormality in the lateral and inferior leads. D Troponin negative. CBC, CMP was grossly unremarkable. Besides a blood sugar at 280 and is diabetic and a creatinine 1.55. Kidney function appears chronic after reviewing previous lab. States his blood pressure typically is in the 160s to 150s at home. No budge of his blood pressure after hydralazine 10mg. Received 20 mg of labetalol with very minimal improvement and then his blood pressure continue to increased again. At this time concern for hypertensive urgency. Tinnitus and headache could be associated to his blood pressure. No strong evidence of endorgan damage. Patient is not delirious or altered. Suggest at this time we start him on a Cardene drip. Patient was discussed with Dr. Bishop hospitalist on-call who agreed to accept patient to the unit and further evaluation. Would not suspect Mnire's disease being bilateral. May need further ENT follow-up if his symptoms do not prove with improvement of his blood pressure Impression Primary Impression: Hypertensive urgency Additional Impressions: Headache Ear ringing Disposition: ADMITTED INPATIENT Condition: Stable Admissions Decision to Admit Reason: Admit from ER (General) Decision to Admit/Date: Nov 17, 2022 Time/Decision to Admit Time: 21:12 Departure-Patient Inst. Referrals: NO,LOCAL PHYSICIAN (PCP/Family) Primary Care Physician ESTELLE APPIAH Nov 17, 2022 19:32
[2022-11-17 19:54] LABS: BASOPHILS % (AUTO) 1 % (0-10); EOSINOPHILS # (AUTO) 0.2 10^3/uL (0.0-0.3); EOSINOPHILS % (AUTO) 2 % (0-10); HEMATOCRIT 39 % (40-54); HEMOGLOBIN 12.9 g/dL (13.3-17.7); LYMPHOCYTES # (AUTO) 2.2 10^3/uL (1.0-4.0); LYMPHOCYTES % (AUTO) 30 % (12-44); MEAN CORPUSCULAR HEMOGLOBIN 27 pg (25-34); MEAN CORPUSCULAR HGB CONC 33 g/dL (32-36); MEAN CORPUSCULAR VOLUME 83 fL (80-99); MEAN PLATELET VOLUME 11.2 fL (9.0-12.2); MONOCYTES # (AUTO) 0.5 10^3/uL (0.0-1.0); MONOCYTES % (AUTO) 7 % (0-12); NEUTROPHILS # (AUTO) 4.4 10^3/uL (1.8-7.8); NEUTROPHILS % (AUTO) 60 % (42-75); PLATELET COUNT 223 10^3/uL (130-400); WHITE BLOOD COUNT 7.4 10^3/uL (4.3-11.0)
--- NOTE | 2022-11-17 20:02 | Diagnostic Imaging Report ---
PROCEDURE: CT head without contrast. TECHNIQUE: Multiple contiguous axial images were obtained through the brain without the use of intravenous contrast. Auto Exposure Controls were utilized during the CT exam to meet ALARA standards for radiation dose reduction. INDICATION: Headache and ringing in both ears. COMPARISON: None available. FINDINGS: No hyperdense hemorrhage or space-occupying mass. No hydrocephalus or midline shift. The basilar cisterns are normal. Murillo-white matter differentiation is well preserved. The mastoid air cells are clear. Paranasal sinuses are normal. No focal osseous abnormality of the calvarium. IMPRESSION: 1. No acute intracranial process. Dictated by: Dictated on workstation # [id number]
[2022-11-17 20:07] LABS: ALBUMIN 3.9 GM/DL (3.2-4.5)
[2022-11-17 20:08] LABS: POTASSIUM 3.7 MMOL/L (3.6-5.0)
[2022-11-17 20:09] LABS: CALCIUM 9.1 MG/DL (8.5-10.1)
[2022-11-17] MEDS ORDERED: LABETALOL 5 mg/ml 4 ML SINGLE DOSE SYRINGE ONE (20:10)
[2022-11-17 20:12] LABS: BILIRUBIN,TOTAL 0.3 MG/DL (0.1-1.0)
[2022-11-17 20:14] LABS: CREATININE SERUM 1.55 MG/DL (0.60-1.30)
[2022-11-17] MEDS ORDERED: LABETALOL 5 mg/ml 4 ML SINGLE DOSE SYRINGE IV ONE (20:15)
[2022-11-17 20:52] LABS: NEUTROPHILS % (MANUAL) 63 %
[2022-11-17 20:53] LABS: ANISOCYTOSIS SLIGHT; EOSINOPHILS % (MANUAL) 3 %; LYMPHOCYTES % (MANUAL) 30 %; MONOCYTES % (MANUAL) 4 %; POIKILOCYTOSIS SLIGHT
[2022-11-17] MEDS ORDERED: niCARdipine INJECTION 50 MG in NS (IVPB) 250 ML 230 ML IV STA (21:06)
[2022-11-17] MEDS ORDERED: niCARdipine IV PYXIS DRIP KIT = 50 MG X 2 VIALS ONE (21:09)
[2022-11-17] MEDS ORDERED: NS (IVPB) 250 ML 250 ML ONE (21:10)
--- NOTE | 2022-11-17 22:17 | Tele-ICU Progress Note ---
Subjective Date Seen by a Provider: Nov 17, 2022 Time Seen by a Provider: 22:17 Sepsis Event Evaluation Sepsis Stage: Ruled Out Height, Weight, BMI Height: 5'7.50" Weight: 274lbs. 5.0oz. 124.710901ah; 41.00 BMI Method:Stated Focused Exam Sepsis Stage: Ruled Out Exam Exam Patient acknowledged, consented, and participated in this virtual visit which was conducted using real time audio/video Vital Signs Date Time Temp Pulse Resp B/P (MAP) Pulse Ox O2 Delivery O2 Flow Rate FiO2 11/17/22 21:40 196/109 11/17/22 21:17 207/118 11/17/22 19:17 37.1 75 20 214/141 (165) 98 Room Air Height & Weight Height: 5'7.50" Weight: 274lbs. 5.0oz. 124.616171bz; 41.00 BMI Method:Stated General Appearance: No Apparent Distress Capillary Refill: Less Than 3 Seconds Gastrointestinal: normal bowel sounds, non tender, soft, no organomegaly Results Lab Laboratory Tests 11/17/22 19:50 Assessment/Plan Assessment/Plan new admission cc tinnitis hpi I am covering from [place] through [place], and am not bedside. HPI and other pertinent information taken from ED notes. 52 yo male presents with 1 day of ear ringing. +pain in ear. no hearing loss. patient on 3 bp meds, arb, ccb, diuretic. no head injury. no loc. no cp pmhx htn fam hx non cont pshx non cont social hx non cont, unk allergies NKDA ros as above Vitals Temp 37.1 Pulse 75 Resp 20 B/P (MAP) 214/141 (165) Pulse Ox 98 O2 Delivery Room Air pe deffered, remote location, unable to complete ct head IMPRESSION: 1. No acute intracranial process. creat 1.55 bg 260 bun 14 trop negative 1. HTN emergency Cardene gtt started in ed home bp meds, until bp is controlled routine am labs stress importance of med compliance cards consult orders per primary further orders per nursing requests video completed ct 10m Critical Care: Critically Ill Patient GILSON JOSEPH DO Nov 17, 2022 22:17
[2022-11-17] MEDS ORDERED: NS IV 500 ML 500 ML IV PRN (23:30)
[2022-11-17] MEDS: HYDROcodone/ACETAMINOPHEN 5 MG/325 MG TABLET PO PRN (23:37)
[2022-11-17] MEDS ORDERED: CATHETER FLUSH 10 ML SYR IVP PRN (23:45)
[2022-11-18] MEDS ORDERED: NS (IVPB) 250 ML 250 ML ONE (03:39)
[2022-11-18] MEDS ORDERED: niCARdipine IV PYXIS DRIP KIT = 50 MG X 2 VIALS ONE (03:39)
[2022-11-18] MEDS: niCARdipine INJECTION 50 MG in NS (IVPB) 250 ML 230 ML IV SCH ×3 (03:47→22:32)
[2022-11-18 05:02] LABS: BASOPHILS % (AUTO) 0 % (0-10); EOSINOPHILS # (AUTO) 0.2 10^3/uL (0.0-0.3); EOSINOPHILS % (AUTO) 2 % (0-10); HEMATOCRIT 38 % (40-54); HEMOGLOBIN 12.2 g/dL (13.3-17.7); LYMPHOCYTES # (AUTO) 2.4 10^3/uL (1.0-4.0); LYMPHOCYTES % (AUTO) 27 % (12-44); MEAN CORPUSCULAR HEMOGLOBIN 26 pg (25-34); MEAN CORPUSCULAR HGB CONC 32 g/dL (32-36); MEAN CORPUSCULAR VOLUME 82 fL (80-99); MEAN PLATELET VOLUME 11.3 fL (9.0-12.2); MONOCYTES # (AUTO) 0.6 10^3/uL (0.0-1.0); MONOCYTES % (AUTO) 7 % (0-12); NEUTROPHILS # (AUTO) 5.6 10^3/uL (1.8-7.8); NEUTROPHILS % (AUTO) 64 % (42-75); PLATELET COUNT 213 10^3/uL (130-400); WHITE BLOOD COUNT 8.8 10^3/uL (4.3-11.0)
[2022-11-18 05:30] LABS: ALBUMIN 3.8 GM/DL (3.2-4.5); BILIRUBIN,TOTAL 0.3 MG/DL (0.1-1.0); CALCIUM 8.8 MG/DL (8.5-10.1); CREATININE SERUM 1.3 MG/DL (0.60-1.30); MAGNESIUM 1.8 MG/DL (1.6-2.4); TOTAL PROTEIN 7.2 GM/DL (6.4-8.2)
[2022-11-18] MEDS: MAGNESIUM 1 GM/100 ML IVPB 100 ML IV SCH ×3 (05:34→06:33)
[2022-11-18] MEDS: POTASSIUM CL 10MEQ/50ML IVPB 50 ML IV SCH ×3 (05:34→06:33)
[2022-11-18] MEDS: POTASSIUM CHLORIDE 20 MEQ TABLET PO SCH ×2 (05:34→17:36)
[2022-11-18] MEDS: CATHETER FLUSH 10 ML SYR IVP SCH ×3 (05:34→22:31)
[2022-11-18] MEDS: HYDROcodone/ACETAMINOPHEN 5 MG/325 MG TABLET PO PRN (05:42)
[2022-11-18] MEDS: inSUlin ASPART 1 UNIT/0.01 ML (PER UNIT) SC SCH ×4 (05:42→20:28)
--- NOTE | 2022-11-18 07:18 | History & Physical-Hospitalist ---
History of Present Illness HPI/Chief Complaint Pt is a 52yoAAM with a PMH of HTN, DM who presented to the ER due to headache and ear ringing. He described it like he had water in his ear and pressure that he couldn't get out. He was found to have BP of 214/141 in the ER that despite 10mg Hydralazine and 20mg labetolol they could not get to improve. He denies any chest pain last night but this morning thought he had a little tightness that resolved quickly with hydrocodone. His BP are currently 140 which he reports is where he normally is. He states he has always had higher blood pressures depsite compliance with his medications. Source: patient Date Seen 11/18/22 Time Seen by a Provider: 07:18 Attending Physician No,Local Physician PCP Admitting Physician: Shane Bishop MD Attending Physician: Shane Bishop MD Referring Physician Date of Admission Nov 17, 2022 at 21:44 Home Medications & Allergies Home Medications Reviewed patient Home Medication Reconciliation performed by pharmacy medication reconciliations optical laboratory technician and/or nursing. Patients Allergies have been reviewed. Allergies Allergies Coded Allergies No Known Drug Allergies (Unverified07/01/18) Past Dkmkwtq-Viimju-Cholfx Hx Patient Social History Marrital Status: Tobacco Use?: No Use of E-Cig and/or Vaping dev: No Substance use?: No Alcohol Use?: No Pt feels they are or have been: No Immunizations Up To Date Tetanus Booster (TDap): Unknown Hepatitis A: No Hepatitis B: No Date of Pneumonia Vaccine: Apr 04, 2018 Seasonal Allergies Seasonal Allergies: No Current Status Advance Directives: No Communicates: Verbally Primary Language: Greenlandic Preferred Spoken Language: Greenlandic Is interpretation needed?: No Implanted or Applied Medical D: None Past Medical History Hypertension Arthritis Anxiety, PTSD Blood Disorders: No Family Medical History Reviewed Nursing Family Hx Review of Systems Constitutional: see HPI Physical Exam Physical Exam Vital Signs Vital Signs - First Documented 11/17/22 19:17 Temp 37.1 Pulse 75 Resp 20 B/P (MAP) 214/141 (165) Pulse Ox 98 O2 Delivery Room Air Capillary Refill : Less Than 3 Seconds Height, Weight, BMI Height: 5'7.50" Weight: 274lbs. 5.0oz. 124.015282uu; 44.77 BMI Method:Stated General Appearance: No Apparent Distress, WD/WN Respiratory: Lungs Clear, No Respiratory Distress Cardiovascular: Regular Rate, Rhythm, No Murmur Gastrointestinal: Normal Bowel Sounds, Soft Neurologic/Psychiatric: Alert, Oriented x3 Results Results/Procedures Labs Laboratory Tests 11/17/22 19:50 11/18/22 04:22 Patient resulted labs reviewed. Imaging: Reviewed Imaging Report Imaging [facility], [place] NAME: TAMMY GARNICA JR [facility] REC#: [id number] PT STATUS: REG ER : 1970 PHYSICIAN: ESTELLE APPIAH ADMIT DATE: 11/17/22/ER Signed Date of Exam:11/17/22 CT HEAD WO PROCEDURE: CT head without contrast. TECHNIQUE: Multiple contiguous axial images were obtained through the brain without the use of intravenous contrast. Auto Exposure Controls were utilized during the CT exam to meet ALARA standards for radiation dose reduction. INDICATION: Headache and ringing in both ears. COMPARISON: None available. FINDINGS: No hyperdense hemorrhage or space-occupying mass. No hydrocephalus or midline shift. The basilar cisterns are normal. Murillo-white matter differentiation is well preserved. The mastoid air cells are clear. Paranasal sinuses are normal. No focal osseous abnormality of the calvarium. IMPRESSION: 1. No acute intracranial process. Dictated by: Dictated on workstation # [id number] Dict: 11/17/221958 Trans: 11/17/221999 [facility] [id number] Interpreted by: GRETA LUEVANO MD Electronically signed by: GRETA LUEVANO MD 11/17/221999 Assessment/Plan Admission Diagnosis HTN emergency Admission Status: Inpatient Order (span 2 midnights) Reason for Inpatient Admission: see below Assessment and Plan HTN emergency Currently on cardene gtt When med rec done resume home meds and try and titrate off Cardiology consulted, appreciate recs Echo orered renal doppler ordered DMII SSI Accuchecks DVT ppx: Lovenox Diagnosis/Problems Diagnosis/Problems (1) Hypertensive emergency (2) Diabetes mellitus (3) Uncontrolled hypertension REVA POLANCO MD Nov 18, 2022 07:18
[2022-11-18] MEDS ORDERED: POTASSIUM CHLORIDE 20 MEQ TABLET PO NR ×2 (08:30→10:30)
[2022-11-18] MEDS: ENOXAPARIN 40 MG/0.4 ML SYRINGE SQ SCH ×2 (08:41→20:21)
[2022-11-18] MEDS ORDERED: carvediloL 12.5 MG TABLET PO SCH (09:00)
[2022-11-18] MEDS ORDERED: METF-478 PO (09:03)
[2022-11-18] MEDS ORDERED: PRAZ2CAP2 PO (09:03)
[2022-11-18] MEDS ORDERED: EMPA25TA PO (09:03)
[2022-11-18] MEDS ORDERED: SITA100T12 PO (09:03)
[2022-11-18] MEDS ORDERED: NF-VITD400 PO (09:03)
[2022-11-18] MEDS ORDERED: LOSA-415 PO (09:03)
[2022-11-18] MEDS ORDERED: CHLO50TA2 PO (09:03)
[2022-11-18] MEDS ORDERED: MELO10CA3 PO (09:03)
--- NOTE | 2022-11-18 09:27 | Consultation-Cardiology ---
HPI-Cardiology Cardiology Consultation: Date of Consultation 11/18/22 Time Seen by a Provider: 08:50 Date of Admission 11-17-22 Attending Physician Alba,Local Physician Admitting Physician Admitting Physician: Shane Bishop MD Attending Physician: Shane Bishop MD Consulting Physician Rashel Lazo MD HPI: Chief Complaint: Uncontrolled HTN Mr. Garnica is a 52 yr old male admitted to ICU 6 with uncontrolled HTN. [facility] He reports he noted his BP to be high starting a few days ago at which time he thought he may have had a fever, but did not check it. He reports he also had some LE swelling at that time as well. He denies any c/o CP, SOB, palpitations, syncope or near syncope. He reports he has had a HERNANDEZ. He is on multiple medications for high blood pressure. Review of Systems-Cardiology Review of Systems Constitutional: As described under HPI; No chills, No malaise Eyes: No vision change Ears/Nose/Throat: No epistaxis, No recent hearing loss Respiratory: As described under HPI Cardiovascular: As described under HPI Gastrointestinal: No diarrhea, No nausea, No vomiting Genitourinary: No dysuria, No hematuria Musculoskeletal: other (chronic knee pain) Skin: No rash on exposed areas, No ulcerations on exposed areas Psychiatric/Neurological: No anxiety, No depression, No seizure, No focal weakness, No syncope All Other Systems Reviewed Negative Unless Noted: Yes MPL-Kakigm-Ctyslm Hx Patient Social History Marrital Status: 2nd Hand Smoke Exposure: No Alcohol Use?: No Pt feels they are or have been: No Immunizations Up To Date Tetanus Booster (TDap): Unknown Date of Pneumonia Vaccine: Apr 04, 2018 Past Medical History PMH As described under Assessment. Family Medical History Family Medical History: No reported family h/o CAD. Allergies and Home Medications Allergies Coded Allergies: No Known Drug Allergies (Unverified , 07/01/18) Patient Home Medication List Amlodipine Besylate (Amlodipine Besylate) 10 Mg Tablet, 10 MG PO DAILY, (Reported) Entered as Reported by: DANIKA MOISE on 07/01/18 2100 Last Action: Reviewed Chlorthalidone (Chlorthalidone) 25 Mg Tablet, 25 MG PO DAILY, (Reported) Entered as Reported by: NIEVES FELIPE on 11/18/22 1400 Last Action: Held Empagliflozin (Jardiance) 25 Mg Tablet, 25 MG PO DAILY, (Reported) Entered as Reported by: FERMIN MORELOS on 11/18/22902 Last Action: Reviewed Fluoxetine HCl (Fluoxetine HCl) 20 Mg Capsule, 20 MG PO HS, (Reported) Entered as Reported by: NIEVES FELIPE on 11/18/221399 Last Action: Continued Hydralazine HCl (Hydralazine HCl) 10 Mg Tablet, 30 MG PO BID, (Reported) Entered as Reported by: NIEVES FELIPE on 11/18/221399 Last Action: Continued Losartan Potassium (Losartan Potassium) 100 Mg Tablet, 100 MG PO DAILY, (Reported) Entered as Reported by: NIEVES FELIPE on 11/18/221399 Last Action: Held Meloxicam (Meloxicam) 15 Mg Tablet, 15 MG PO DAILY, (Reported) Entered as Reported by: NIEVES FELIPE on 11/18/221399 Last Action: Reviewed Metformin HCl (Metformin HCl ER) 500 Mg Tab.er.24, 1,000 MG PO BID, (Reported) Entered as Reported by: FERMIN MORELOS on 11/18/22902 Last Action: Continued Potassium Chloride (Potassium Chloride) 20 Meq Tablet.er, 20 MEQ PO BID, (Reported) Entered as Reported by: NIEVES FELIPE on 11/18/221399 Last Action: Converted Prazosin HCl (Prazosin HCl) 5 Mg Capsule, 5 MG PO HS, (Reported) Entered as Reported by: NIEVES FELIPE on 11/18/221399 Last Action: Converted Quetiapine Fumarate (Quetiapine Fumarate) 400 Mg Tablet, 400 MG PO BID, (Reported) Entered as Reported by: NIEVES FELIPE on 11/18/221399 Last Action: Converted Venlafaxine HCl (Venlafaxine HCl ER) 150 Mg Cap.er.24h, 150 MG PO HS, (Reported) Entered as Reported by: NIEVES FELIPE on 11/18/221399 Last Action: Converted Vitamin D (Vitamin D3) 10 Mcg (400 Unit) Tablet, 1,000 UNIT PO DAILY, (Reported) Entered as Reported by: FERMIN MORELOS on 11/18/22902 Last Action: Continued Discontinued Medications Carvedilol (Carvedilol) 12.5 Mg Tablet, 25 MG PO BID Discontinued Reason: No Longer Taking Prescribed by: RASHEL LAZO on 07/02/181116 Last Action: Discontinued Chlorthalidone (Chlorthalidone) 50 Mg Tablet, 50 MG PO DAILY, (Reported) Discontinued Reason: Prescription changed Entered as Reported by: FERMIN MORELOS on 11/18/22902 Last Action: New Order Hydralazine HCl (Hydralazine HCl) 25 Mg Tablet, 50 MG PO Q8HR Discontinued Reason: No Longer Taking Prescribed by: RASHEL LAZO on 07/02/181116 Last Action: Discontinued Hydrochlorothiazide (Hydrochlorothiazide) 12.5 Mg Tablet, 12.5 MG PO DAILY Discontinued Reason: No Longer Taking Prescribed by: RASHEL LAZO on 07/02/181116 Last Action: Discontinued Hydroxyzine Pamoate (Hydroxyzine Pamoate) 50 Mg Capsule, 50 MG PO BID, (Reported) Discontinued Reason: No Longer Taking Entered as Reported by: DANIKA MOISE on 07/01/182117 Last Action: Discontinued Losartan Potassium (Cozaar) 50 Mg Tablet, 50 MG PO DAILY, (Reported) Discontinued Reason: Prescription changed Entered as Reported by: FERMIN MORELOS on 11/18/22902 Last Action: New Order Meloxicam, Submicronized (Meloxicam) 10 Mg Capsule, 15 MG PO DAILY, (Reported) Discontinued Reason: No Longer Taking Entered as Reported by: FERMIN MORELOS on 11/18/22902 Last Action: Discontinued Prazosin HCl (Prazosin HCl) 2 Mg Capsule, 2 MG PO HS, (Reported) Discontinued Reason: Prescription changed Entered as Reported by: FERMIN MORELOS on 11/18/22902 Last Action: New Order Quetiapine Fumarate (Quetiapine Fumarate) 400 Mg Tablet, 400 MG PO BID, (Reported) Discontinued Reason: No Longer Taking Entered as Reported by: DANIKA MOISE on 07/01/182117 Last Action: Discontinued Sitagliptin Phosphate (Januvia) 100 Mg Tablet, 100 MG PO DAILY, (Reported) Discontinued Reason: No Longer Taking Entered as Reported by: FERMIN MORELOS on 11/18/22902 Last Action: Discontinued Physical Exam-Cardiology Physical Exam Vital Signs/I&O 11/18/22 11/18/22 11/18/22 11/19/22 22:00 23:00 23:07 00:00 Pulse 66 64 63 Resp 19 15 16 B/P (MAP) 125/77 (93) 132/86 (101) 137/87 (104) Pulse Ox 91 93 94 94 O2 Delivery Room Air Room Air Room Air Room Air 11/19/22 11/19/22 11/19/22 11/19/22 01:00 02:00 03:00 03:28 Pulse 63 67 66 66 Resp 15 B/P (MAP) 144/92 (109) 157/98 (117) 144/88 (106) Pulse Ox 94 94 95 O2 Delivery Room Air Room Air Room Air 11/19/22 11/19/22 11/19/22 11/19/22 04:00 04:00 05:00 06:00 Pulse 66 66 66 Resp 15 15 B/P (MAP) 135/83 (100) 155/94 (114) 149/89 (109) Pulse Ox 95 96 94 94 O2 Delivery Room Air Room Air Room Air Room Air 11/19/22 11/19/22 11/19/22 11/19/22 07:00 07:00 07:31 08:00 Temp 35.6 Pulse 63 64 58 Resp 29 15 B/P (MAP) 132/79 (96) 135/85 (102) Pulse Ox 93 95 O2 Delivery Room Air Room Air 11/19/22 00:00 Intake Total 1300 ml Output Total 1200 ml Balance 100 ml Capillary Refill : Less Than 3 Seconds Constitutional: AAO x 3, well-developed, well-nourished HEENT: PERRL, hearing is well preserved, oral hygience is good Neck: No carotid bruit; carotid pulses are 2 + bilaterally Respiratory: No accessory muscle use, No respiratory distress; chest expansion is symmetric, chest is bilaterally symmetric, lungs clear to auscultation Cardiovascular: regular rate-rhythm; No JVD; S1 and S2 Gastrointestinal: No tender; soft; No guarding; audible bowel sounds Extremities: no lower extremity edema bilateral Neurologic/Psychiatric: other (moves all extremities) Skin: No rash on exposed areas, No ulcerations on exposed areas Data Review Labs Laboratory Tests 11/18/22 10:20: Urine Color YELLOW, Urine Clarity CLEAR, Urine pH 5.0, Urine Specific [place] 1.015L, Urine Protein 2+H, Urine Glucose (UA) 3+H, Urine Ketones NEGATIVE, Urine Nitrite NEGATIVE, Urine Bilirubin NEGATIVE, Urine Urobilinogen 0.2, Urine Leukocyte Esterase NEGATIVE, Urine RBC (Auto) NEGATIVE, Urine RBC NONE, Urine WBC NONE, Urine Squamous Epithelial Cells NONE, Urine Crystals NONE, Urine Bacteria NEGATIVE, Urine Casts NONE, Urine Mucus NEGATIVE, Urine Culture Indicated NO, Urine Opiates Screen POSITIVEH, Urine Oxycodone Screen NEGATIVE, Urine Methadone Screen NEGATIVE, Urine Propoxyphene Screen NEGATIVE, Urine Barbiturates Screen NEGATIVE, Ur Tricyclic Antidepressants Screen NEGATIVE, Urine Phencyclidine Screen NEGATIVE, Urine Amphetamines Screen NEGATIVE, Urine Methamphetamines Screen NEGATIVE, Urine Benzodiazepines Screen NEGATIVE, Urine Cocaine Screen NEGATIVE, Urine Cannabinoids Screen NEGATIVE 11/18/22 10:59: Glucometer 232H 11/18/22 16:34: Glucometer 147H 11/18/22 20:22: Glucometer 250H 11/19/22 04:22: 11/19/22 05:51: White Blood Count 7.2, Red Blood Count 4.51, Hemoglobin 11.9L, Hematocrit 38L, Mean Corpuscular Volume 83, Mean Corpuscular Hemoglobin 26, Mean Corpuscular Hemoglobin Concent 32, Red Cell Distribution Width 17.4H, Platelet Count 202, Mean Platelet Volume 11.0, Immature Granulocyte % (Auto) 0, Neutrophils (%) (Auto) 71, Lymphocytes (%) (Auto) 21, Monocytes (%) (Auto) 6, Eosinophils (%) (Auto) 1, Basophils (%) (Auto) 1, Neutrophils # (Auto) 5.1, Lymphocytes # (Auto) 1.5, Monocytes # (Auto) 0.4, Eosinophils # (Auto) 0.1, Basophils # (Auto) 0.0, Immature Granulocyte # (Auto) 0.0, Sodium Level 136, Potassium Level 4.2, Chloride Level 105, Carbon Dioxide Level 22, Anion Gap 9, Blood Urea Nitrogen 17, Creatinine 1.64H, Estimat Glomerular Filtration Rate 50, BUN/Creatinine Ratio 10, Glucose Level 242H, Calcium Level 8.7, Corrected Calcium 8.9, Phosphorus Level 3.8, Magnesium Level 2.3, Total Bilirubin 0.5, Aspartate Amino Transf (AST/SGOT) 16, Alanine Aminotransferase (ALT/SGPT) 26, Alkaline Phosphatase 64, Total Protein 6.9, Albumin 3.7 Microbiology 11/17/22 MRSA Screen - Final, Complete MRSA not isolated Radiology NAME: TAMMY GARNICA [facility] REC#: [id number] PT STATUS: REG ER : 1970 PHYSICIAN: ESTELLE APPIAH ADMIT DATE: 11/17/22/ER Signed Date of Exam:11/17/22 CT HEAD WO PROCEDURE: CT head without contrast. TECHNIQUE: Multiple contiguous axial images were obtained through the brain without the use of intravenous contrast. Auto Exposure Controls were utilized during the CT exam to meet ALARA standards for radiation dose reduction. INDICATION: Headache and ringing in both ears. COMPARISON: None available. FINDINGS: No hyperdense hemorrhage or space-occupying mass. No hydrocephalus or midline shift. The basilar cisterns are normal. Murillo-white matter differentiation is well preserved. The mastoid air cells are clear. Paranasal sinuses are normal. No focal osseous abnormality of the calvarium. IMPRESSION: 1. No acute intracranial process. Dictated by: Dictated on workstation # [id number] Dict: 11/17/221958 Trans: 11/17/221999 [facility] [id number] Interpreted by: GRETA LUEVANO MD Electronically signed by: GRETA LUEVANO MD 11/17/221999 ECG Impression ECG Initial ECG Rhythm: Normal Sinus A/P-Cardiology Assessment/Admission Diagnosis Uncontrolled HTN - improved with Cardene gtt DM 2 Chronic knee pain - routine NSAID tx H/O abdominal wall hernia resulting in scrotal hematoma in 2002 Elevated BMI of 45 Discussion and Recomendations Uncontrolled HTN - requiring Cardene gtt - multi-drug regimen at home - Stop coreg and change to Toprol XL, restart home dose of Norvasce, increase Losartan dose - renal artery duplex ordered per medical services Echocardiogram today Monitor lab Replace electrolytes Further recs will be based on his hospital course We would like to thank medical services for this consult I have discussed plan of care with Dr. Zurita and ROSSANA Swartz Nov 18, 2022 09:27
[2022-11-18] MEDS ORDERED: amLODIPine 10 MG TABLET PO NR (10:00)
[2022-11-18] MEDS ORDERED: LOSARTAN 100 MG TABLET PO NR (10:00)
[2022-11-18 10:47] LABS: BACTERIA,URINE NEGATIVE /HPF; BILIRUBIN,URINE NEGATIVE (NEGATIVE); CLARITY,URINE CLEAR; COLOR,URINE YELLOW; GLUCOSE, URINE (UA) 3+ (NEGATIVE); KETONES,URINE NEGATIVE (NEGATIVE); LEUKOCYTE ESTERASE ,URINE NEGATIVE (NEGATIVE); NITRITE,URINE NEGATIVE (NEGATIVE); PROTEIN,URINE 2+ (NEGATIVE)
[2022-11-18 10:53] LABS: AMPHETAMINE SCREEN, URINE NEGATIVE (NEGATIVE); BARBITURATE SCREEN URINE NEGATIVE (NEGATIVE); CANNABINOID SCREEN, URINE NEGATIVE (NEGATIVE); COCAINE SCREEN URINE NEGATIVE (NEGATIVE); METHADONE STAT NEGATIVE (NEGATIVE); OPIATE SCREEN URINE POSITIVE (NEGATIVE); OXYCODONE STAT NEGATIVE (NEGATIVE); PROPOXYPHENE STAT NEGATIVE (NEGATIVE); TRICYCLIC ANTIDEPRESSANTS SCRE NEGATIVE (NEGATIVE)
--- NOTE | 2022-11-18 12:11 | Tele-ICU Progress Note ---
Subjective Date Seen by a Provider: Nov 18, 2022 Time Seen by a Provider: 12:10 Subjective/Events-last exam (Tele-ICU Physician , Progress Note ) Service provided via interactive audio and video telecommunications E-CARE s te to a patient admitted to ICU bed in [facility]. Patient is seen today due to persistent need of ICU care Available chart/ vitals / labs / Images reviewed Video assessment done using teleICU camera, rest of exam as per RN He is a 52-year-old male with past medical history of hypertension, type 2 diabetes mellitus and morbid obesity presented to the emergency room with a complaint of ringing in the ears and a headache. A CT of the head was done which was negative. However his blood pressure is markedly elevated in the emergency room. And he did not improve with hydralazine and labetalol. Hence he is started on Cardene drip and admitted to the intensive care unit. Apparently he follows up with the [facility] but compliance with the medication is somewhat questionable. He denied any chest pain shortness of breath or abdominal pain. He does have a history of knee arthritis and uses NSAIDs. Impression 1. Hypertensive emergency 2. History of type 2 diabetes mellitus 3. Osteoarthritis of the knee 4. Morbid obesity. Recommendations 1. Start on of oral antihypertensive medication such as amlodipine, losartan and beta-damián and wean off Cardene drip. Scalp Treatment Operator on the consultation. 2. Ultrasonogram of the renal arteries to rule out any renal artery stenosis 3. We will get urine for analysis and a urine for drug screen. 4. Diabetes management per primary care physician. Coordination of care with primary care physician and bedside consultants. I am remotely monitoring this patient from Tele icu station in [place]. I am unable to do the bedside exam, and history/physical and pertinent information is taken from other notes in the computer and bedside staff. Certain portions of this document may have been dictated utilizing voice recognition technology such as [employer]. Inherent to this technology, typographical and grammatical errors may exist. As much as I am diligent to identify and correct to these mistakes, some errors may remain in the document. Critical care time devoted to this patient today is approximately is-15 minutes Sepsis Event Evaluation Height, Weight, BMI Height: 5'7.50" Weight: 274lbs. 5.0oz. 124.262079tp; 44.77 BMI Method:Stated Exam Exam Patient acknowledged, consented, and participated in this virtual visit which was conducted using real time audio/video Vital Signs Date Time Temp Pulse Resp B/P (MAP) Pulse Ox O2 Delivery O2 Flow Rate FiO2 11/18/22 10:00 112 136/91 (106) 98 Room Air 11/18/22 10:00 133/80 11/18/22 09:19 133/80 11/18/22 09:00 85 19 129/81 (97) 96 Room Air 11/18/22 08:15 96 Room Air 11/18/22 08:00 85 29 137/81 (99) 98 Room Air 11/18/22 07:38 36.2 11/18/22 07:00 92 14 146/93 (110) 93 Room Air 11/18/22 07:00 88 11/18/22 06:00 80 20 165/92 (116) 98 Room Air 11/18/22 05:45 162/100 11/18/22 05:00 89 16 150/95 (113) 98 Room Air 11/18/22 04:17 154/88 11/18/22 04:00 94 15 161/100 (120) 97 Room Air 11/18/22 03:47 163/93 11/18/22 03:35 97 Room Air 11/18/22 03:35 36.6 92 15 163/93 (116) 97 Room Air 11/18/22 03:00 89 21 139/92 (108) 96 Room Air 11/18/22 02:00 90 17 163/86 (111) 94 Room Air 11/18/22 01:00 88 17 152/86 (108) 95 Room Air 11/18/22 01:00 88 11/18/22 00:48 155/94 11/18/22 00:45 85 17 155/94 (114) 97 Room Air 11/18/22 00:30 87 24 158/92 (114) 97 Room Air 11/18/22 00:15 96 19 166/90 (113) 97 Room Air 11/18/22 00:00 93 163/94 (117) 97 Room Air 11/17/22 23:45 93 29 168/114 (124) 98 Room Air 11/17/22 23:30 97 18 183/104 (130) 98 Room Air 11/17/22 23:21 174/113 11/17/22 23:18 174/113 11/17/22 23:15 97 16 174/113 (133) 98 Room Air 11/17/22 23:13 98 Room Air 11/17/22 23:05 36.8 91 14 177/100 (125) 98 Room Air 11/17/22 23:02 177/100 11/17/22 22:59 96 11/17/22 22:55 95 20 171/96 97 Room Air 11/17/22 21:40 196/109 11/17/22 21:17 207/118 11/17/22 19:17 37.1 75 20 214/141 (165) 98 Room Air I & O 11/18/22 07:00 Intake Total 1200 ml Output Total 750 ml Balance 450 ml Height & Weight Height: 5'7.50" Weight: 274lbs. 5.0oz. 124.739664ck; 44.77 BMI Method:Stated General Appearance: No Apparent Distress, WD/WN Respiratory: Lungs Clear, No Respiratory Distress Cardiovascular: Regular Rate, Rhythm, No Murmur Capillary Refill: Less Than 3 Seconds Gastrointestinal: normal bowel sounds, non tender, soft, no organomegaly Neurologic/Psychiatric: Alert, Oriented x3 Results Lab Laboratory Tests 11/17/22 19:50 11/18/22 04:22 Assessment/Plan Assessment/Plan as above Critical Care: Critically Ill Patient Time spent with patient (mins): 15 KING ZHONG MD Nov 18, 2022 12:11
[2022-11-18] MEDS ORDERED: MELO15TA39 PO (14:00)
[2022-11-18] MEDS ORDERED: QUET400T13 PO (14:00)
[2022-11-18] MEDS ORDERED: FLUO20CA48 PO (14:00)
[2022-11-18] MEDS ORDERED: HYDR-3922 PO (14:00)
[2022-11-18] MEDS ORDERED: POTA-330 PO (14:00)
[2022-11-18] MEDS ORDERED: LOSA100T58 PO (14:00)
[2022-11-18] MEDS ORDERED: CHLO25TA22 PO (14:00)
[2022-11-18] MEDS ORDERED: VENL150C98 PO (14:00)
[2022-11-18] MEDS ORDERED: PRAZ5CAP2 PO (14:00)
--- NOTE | 2022-11-18 15:04 | Consultation-Cardiology ---
HPI-Cardiology Cardiology Consultation: Date of Consultation 11/18/22 Time Seen by a Provider: 12:45 Date of Admission Attending Physician Alba,Local Physician Admitting Physician Admitting Physician: Shane Bishop MD Attending Physician: Shane Bishop MD Consulting Physician PAMELA LAZO MD, MA, FACP, FACC, FSCAI, CCDS Physican requesting consult: Hospitalist Joselin HPI: Chief Complaint: Reason for Card consult: Uncontrolled HTN Mr. Christopher is a 52 yr old male admitted to ICU 6 with uncontrolled HTN. [facility] He reports he noted his BP to be high starting a few days ago at which time he thought he may have had a fever, but did not check it. He reports he also had some LE swelling at that time as well. He denies any c/o CP, SOB, palpitations, syncope or near syncope. He reports he has had a HERNANDEZ. He is on multiple medications for high blood pressure. Review of Systems-Cardiology Review of Systems Constitutional: As described under HPI; No chills, No malaise Eyes: No vision change Ears/Nose/Throat: No epistaxis, No recent hearing loss Respiratory: As described under HPI Cardiovascular: As described under HPI Gastrointestinal: No diarrhea, No nausea, No vomiting Genitourinary: No dysuria, No hematuria Musculoskeletal: other (chronic knee pain) Skin: No rash on exposed areas, No ulcerations on exposed areas Psychiatric/Neurological: No anxiety, No depression, No seizure, No focal weakness, No syncope All Other Systems Reviewed Negative Unless Noted: Yes NAZ-Hqfjfj-Lbvcyl Hx Patient Social History Marrital Status: 2nd Hand Smoke Exposure: No Alcohol Use?: No Pt feels they are or have been: No Immunizations Up To Date Tetanus Booster (TDap): Unknown Date of Pneumonia Vaccine: Apr 04, 2018 Past Medical History PMH As described under Assessment. Family Medical History Family Medical History: No reported family h/o CAD. Allergies and Home Medications Allergies Coded Allergies: No Known Drug Allergies (Unverified , 07/01/18) Patient Home Medication List Home Medication List Reviewed: Yes Amlodipine Besylate (Amlodipine Besylate) 10 Mg Tablet, 10 MG PO DAILY, (Reported) Entered as Reported by: DANIKA MOISE on 07/01/18 2100 Last Action: Reviewed Chlorthalidone (Chlorthalidone) 25 Mg Tablet, 25 MG PO DAILY, (Reported) Entered as Reported by: NIEVES FELIPE on 11/18/221399 Last Action: Reviewed Empagliflozin (Jardiance) 25 Mg Tablet, 25 MG PO DAILY, (Reported) Entered as Reported by: FERMIN MORELOS on 11/18/22902 Last Action: Reviewed Fluoxetine HCl (Fluoxetine HCl) 20 Mg Capsule, 20 MG PO HS, (Reported) Entered as Reported by: NIEVES FELIPE on 11/18/221399 Last Action: Reviewed Hydralazine HCl (Hydralazine HCl) 10 Mg Tablet, 30 MG PO BID, (Reported) Entered as Reported by: NIEVES FELIPE on 11/18/221399 Last Action: Reviewed Losartan Potassium (Losartan Potassium) 100 Mg Tablet, 100 MG PO DAILY, (Reported) Entered as Reported by: NIEVES FELIPE on 11/18/221399 Last Action: Reviewed Meloxicam (Meloxicam) 15 Mg Tablet, 15 MG PO DAILY, (Reported) Entered as Reported by: NIEVES FELIPE on 11/18/221399 Last Action: Reviewed Metformin HCl (Metformin HCl ER) 500 Mg Tab.er.24, 1,000 MG PO BID, (Reported) Entered as Reported by: FERMIN MORELOS on 11/18/22902 Last Action: Reviewed Potassium Chloride (Potassium Chloride) 20 Meq Tablet.er, 20 MEQ PO BID, (Reported) Entered as Reported by: NIEVES FELIPE on 11/18/221399 Last Action: Reviewed Prazosin HCl (Prazosin HCl) 5 Mg Capsule, 5 MG PO HS, (Reported) Entered as Reported by: NIEVES FELIPE on 11/18/221399 Last Action: Reviewed Quetiapine Fumarate (Quetiapine Fumarate) 400 Mg Tablet, 400 MG PO BID, (Reported) Entered as Reported by: NIEVES FELIPE on 11/18/221399 Last Action: Reviewed Venlafaxine HCl (Venlafaxine HCl ER) 150 Mg Cap.er.24h, 150 MG PO HS, (Reported) Entered as Reported by: NIEVES FELIPE on 11/18/221399 Last Action: Reviewed Vitamin D (Vitamin D3) 10 Mcg (400 Unit) Tablet, 1,000 UNIT PO DAILY, (Reported) Entered as Reported by: FERMIN MORELOS on 11/18/22902 Last Action: Reviewed Discontinued Medications Carvedilol (Carvedilol) 12.5 Mg Tablet, 25 MG PO BID Discontinued Reason: No Longer Taking Prescribed by: PAMELA LAZO on 07/02/181116 Last Action: Discontinued Chlorthalidone (Chlorthalidone) 50 Mg Tablet, 50 MG PO DAILY, (Reported) Discontinued Reason: Prescription changed Entered as Reported by: FERMIN MORELOS on 11/18/22902 Last Action: New Order Hydralazine HCl (Hydralazine HCl) 25 Mg Tablet, 50 MG PO Q8HR Discontinued Reason: No Longer Taking Prescribed by: PAMELA LAZO on 07/02/181116 Last Action: Discontinued Hydrochlorothiazide (Hydrochlorothiazide) 12.5 Mg Tablet, 12.5 MG PO DAILY Discontinued Reason: No Longer Taking Prescribed by: PAMELA LAZO on 07/02/181116 Last Action: Discontinued Hydroxyzine Pamoate (Hydroxyzine Pamoate) 50 Mg Capsule, 50 MG PO BID, (Reported) Discontinued Reason: No Longer Taking Entered as Reported by: DANIKA MOISE on 07/01/182117 Last Action: Discontinued Losartan Potassium (Cozaar) 50 Mg Tablet, 50 MG PO DAILY, (Reported) Discontinued Reason: Prescription changed Entered as Reported by: FERMIN MORELOS on 11/18/22902 Last Action: New Order Meloxicam, Submicronized (Meloxicam) 10 Mg Capsule, 15 MG PO DAILY, (Reported) Discontinued Reason: No Longer Taking Entered as Reported by: FERMIN MORELOS on 11/18/22902 Last Action: Discontinued Prazosin HCl (Prazosin HCl) 2 Mg Capsule, 2 MG PO HS, (Reported) Discontinued Reason: Prescription changed Entered as Reported by: FERMIN MORELOS on 11/18/22902 Last Action: New Order Quetiapine Fumarate (Quetiapine Fumarate) 400 Mg Tablet, 400 MG PO BID, (Reported) Discontinued Reason: No Longer Taking Entered as Reported by: DANIKA MOISE on 07/01/182117 Last Action: Discontinued Sitagliptin Phosphate (Januvia) 100 Mg Tablet, 100 MG PO DAILY, (Reported) Discontinued Reason: No Longer Taking Entered as Reported by: FERMIN MORELOS on 11/18/22902 Last Action: Discontinued Physical Exam-Cardiology Physical Exam Vital Signs/I&O 11/18/22 11/18/22 11/18/22 11/18/22 03:35 03:35 03:47 04:00 Temp 36.6 Pulse 92 94 Resp 15 15 B/P (MAP) 163/93 (116) 163/93 161/100 (120) Pulse Ox 97 97 97 O2 Delivery Room Air Room Air Room Air 11/18/22 11/18/22 11/18/22 11/18/22 04:17 05:00 05:45 06:00 Pulse 89 80 Resp 16 20 B/P (MAP) 154/88 150/95 (113) 162/100 165/92 (116) Pulse Ox 98 98 O2 Delivery Room Air Room Air 11/18/22 11/18/22 11/18/22 11/18/22 07:00 07:00 07:38 08:00 Temp 36.2 Pulse 88 92 85 Resp 14 29 B/P (MAP) 146/93 (110) 137/81 (99) Pulse Ox 93 98 O2 Delivery Room Air Room Air 11/18/22 11/18/22 11/18/22 11/18/22 08:15 09:00 09:19 10:00 Pulse 85 Resp 19 B/P (MAP) 129/81 (97) 133/80 133/80 Pulse Ox 96 96 O2 Delivery Room Air Room Air 11/18/22 11/18/22 10:00 12:15 Pulse 112 B/P (MAP) 136/91 (106) Pulse Ox 98 98 O2 Delivery Room Air Room Air Capillary Refill : Less Than 3 Seconds Constitutional: AAO x 3, well-developed, well-nourished HEENT: PERRL, hearing is well preserved, oral hygience is good Neck: No carotid bruit; carotid pulses are 2 + bilaterally Respiratory: No accessory muscle use, No respiratory distress; chest expansion is symmetric, chest is bilaterally symmetric, lungs clear to auscultation Cardiovascular: regular rate-rhythm; No JVD; S1 and S2 Gastrointestinal: No tender; soft; No guarding; audible bowel sounds Extremities: no lower extremity edema bilateral Neurologic/Psychiatric: other (moves all extremities) Skin: No rash on exposed areas, No ulcerations on exposed areas Data Review Labs Laboratory Tests 11/17/22 19:50: White Blood Count 7.4, Red Blood Count 4.71, Hemoglobin 12.9L, Hematocrit 39L, Mean Corpuscular Volume 83, Mean Corpuscular Hemoglobin 27, Mean Corpuscular Hemoglobin Concent 33, Red Cell Distribution Width 17.2H, Platelet Count 223, Mean Platelet Volume 11.2, Immature Granulocyte % (Auto) 1, Neutrophils (%) (Auto) 60, Lymphocytes (%) (Auto) 30, Monocytes (%) (Auto) 7, Eosinophils (%) (Auto) 2, Basophils (%) (Auto) 1, Neutrophils # (Auto) 4.4, Lymphocytes # (Auto) 2.2, Monocytes # (Auto) 0.5, Eosinophils # (Auto) 0.2, Basophils # (Auto) 0.0, Immature Granulocyte # (Auto) 0.0, Neutrophils % (Manual) 63, Lymphocytes % (Manual) 30, Monocytes % (Manual) 4, Eosinophils % (Manual) 3, Poikilocytosis SLIGHT, Anisocytosis SLIGHT, Sodium Level 140, Potassium Level 3.7, Chloride Level 105, Carbon Dioxide Level 22, Anion Gap 13, Blood Urea Nitrogen 14, Creatinine 1.55H, Estimat Glomerular Filtration Rate 53, BUN/Creatinine Ratio 9, Glucose Level 280H, Calcium Level 9.1, Corrected Calcium 9.2, Total Bilirubin 0.3, Aspartate Amino Transf (AST/SGOT) 22, Alanine Aminotransferase (ALT/SGPT) 30, Alkaline Phosphatase 58, Troponin I < 0.028, Total Protein 8.0, Albumin 3.9 11/18/22 04:22: White Blood Count 8.8, Red Blood Count 4.66, Hemoglobin 12.2L, Hematocrit 38L, Mean Corpuscular Volume 82, Mean Corpuscular Hemoglobin 26, Mean Corpuscular Hemoglobin Concent 32, Red Cell Distribution Width 17.5H, Platelet Count 213, Mean Platelet Volume 11.3, Immature Granulocyte % (Auto) 0, Neutrophils (%) (Auto) 64, Lymphocytes (%) (Auto) 27, Monocytes (%) (Auto) 7, Eosinophils (%) (Auto) 2, Basophils (%) (Auto) 0, Neutrophils # (Auto) 5.6, Lymphocytes # (Auto) 2.4, Monocytes # (Auto) 0.6, Eosinophils # (Auto) 0.2, Basophils # (Auto) 0.0, Immature Granulocyte # (Auto) 0.0, Sodium Level 139, Potassium Level 3.0L, Chloride Level 104, Carbon Dioxide Level 21, Anion Gap 14, Blood Urea Nitrogen 16, Creatinine 1.30, Estimat Glomerular Filtration Rate 66, BUN/Creatinine Ratio 12, Glucose Level 236H, Calcium Level 8.8, Corrected Calcium 9.0, Total Bilirubin 0.3, Aspartate Amino Transf (AST/SGOT) 14, Alanine Aminotransferase (ALT/SGPT) 27, Alkaline Phosphatase 64, Total Protein 7.2, Albumin 3.8, Phosphorus Level 4.0, Magnesium Level 1.8 11/18/22 10:20: Urine Color YELLOW, Urine Clarity CLEAR, Urine pH 5.0, Urine Specific [place] 1.015L, Urine Protein 2+H, Urine Glucose (UA) 3+H, Urine Ketones NEGATIVE, Urine Nitrite NEGATIVE, Urine Bilirubin NEGATIVE, Urine Urobilinogen 0.2, Urine Leukocyte Esterase NEGATIVE, Urine RBC (Auto) NEGATIVE, Urine RBC NONE, Urine WBC NONE, Urine Squamous Epithelial Cells NONE, Urine Crystals NONE, Urine Bacteria NEGATIVE, Urine Casts NONE, Urine Mucus NEGATIVE, Urine Culture Rosalva cated NO, Urine Opiates Screen POSITIVEH, Urine Oxycodone Screen NEGATIVE, Urine Methadone Screen NEGATIVE, Urine Propoxyphene Screen NEGATIVE, Urine Barbiturates Screen NEGATIVE, Ur Tricyclic Antidepressants Screen NEGATIVE, Urine Phencyclidine Screen NEGATIVE, Urine Amphetamines Screen NEGATIVE, Urine Methamphetamines Screen NEGATIVE, Urine Benzodiazepines Screen NEGATIVE, Urine Cocaine Screen NEGATIVE, Urine Cannabinoids Screen NEGATIVE 11/18/22 10:59: Glucometer 232H A/P-Cardiology Assessment/Admission Diagnosis Uncontrolled HTN - improved with Cardene gtt DM 2 Chronic knee pain - routine NSAID tx H/O abdominal wall hernia resulting in scrotal hematoma in 2002 Elevated BMI of 45 Discussion and Recomendations Uncontrolled HTN - requiring Cardene gtt - multi-drug regimen at home - Stop coreg and change to Toprol XL, restart home dose of Norvasce, increase Losartan dose - renal artery duplex ordered per medical services Echocardiogram today Monitor lab Replace electrolytes Further recs will be based on his hospital course We would like to thank medical services for this consult PAMEL[facility] LAZO [facility] CCDS Nov 18, 2022 15:03
[2022-11-18] MEDS: metFORMIN EXT RELEASE 500 MG TABLET PO SCH (17:35)
--- NOTE | 2022-11-18 17:40 | Diagnostic Imaging Report ---
US RENAL ART DOPPLER LUIS A COMP INDICATION: Hypertensive urgency. COMPARISON: None available. TECHNIQUE: Grayscale, color Doppler, and spectral Doppler imaging of the kidneys and renal arteries was performed. FINDINGS: The right kidney measures 12 cm in length. There is no mass or hydronephrosis within the right kidney. The proximal aspect of the main renal artery is not able to be visualized due to overlying bowel gas. The mid and distal aspects of the main renal artery are patent by color Doppler imaging and have normal low resistant waveforms. Additionally, the resistive indices within the arcuate arteries are normal. The left kidney measures 10 cm in length. There is no mass or hydronephrosis in the left kidney. The proximal aspect of the left main renal artery is obscured by overlying bowel gas. The mid to distal aspect of the left main renal artery is patent by color Doppler imaging and has normal low resistant waveforms and velocities. Normal low resistant waveforms within the arcuate arteries. IMPRESSION: 1. No sonographic features of renal artery stenosis. Dictated by: Dictated on workstation # [id number]
[2022-11-18] MEDS ORDERED: VENlafaxine XR 75 MG (EFFEXOR XR) CAP PO SCH (18:00)
[2022-11-18] MEDS ORDERED: hydrALAZINE INJECTION 20 MG/ML VIAL IV PRN (18:15)
[2022-11-18] MEDS: QUEtiapine IMMEDIATE RELEASE 200 MG TABLET PO SCH (20:21)
[2022-11-18] MEDS: hydrALAZINE 10 MG TABLET PO SCH (20:21)
[2022-11-18] MEDS ORDERED: NON-FORMULARY MEDICATION 1 EA EA (Venlafaxine HCl (Venlafaxine HCl ER) 150 MG) PO SCH (21:00)
[2022-11-18] MEDS ORDERED: TERAZOSIN 5 MG CAPSULE PO SCH (21:00)
[2022-11-18] MEDS ORDERED: NON-FORMULARY MEDICATION 1 EA EA (Prazosin HCl 5 MG) PO SCH (21:00)
[2022-11-18] MEDS ORDERED: NON-FORMULARY MEDICATION 1 EA EA (Quetiapine Fumarate 400 MG) PO SCH (21:00)
[2022-11-18] MEDS ORDERED: NON-FORMULARY MEDICATION 1 EA EA (Potassium Chloride 20 MEQ) PO SCH (21:00)
[2022-11-18] MEDS ORDERED: FLUoxetine 20 MG CAPSULE PO SCH (21:00)
[2022-11-19 06:05] LABS: BASOPHILS % (AUTO) 1 % (0-10); EOSINOPHILS # (AUTO) 0.1 10^3/uL (0.0-0.3); EOSINOPHILS % (AUTO) 1 % (0-10); HEMATOCRIT 38 % (40-54); HEMOGLOBIN 11.9 g/dL (13.3-17.7); LYMPHOCYTES # (AUTO) 1.5 10^3/uL (1.0-4.0); LYMPHOCYTES % (AUTO) 21 % (12-44); MEAN CORPUSCULAR HEMOGLOBIN 26 pg (25-34); MEAN CORPUSCULAR HGB CONC 32 g/dL (32-36); MEAN CORPUSCULAR VOLUME 83 fL (80-99); MONOCYTES # (AUTO) 0.4 10^3/uL (0.0-1.0); MONOCYTES % (AUTO) 6 % (0-12); NEUTROPHILS # (AUTO) 5.1 10^3/uL (1.8-7.8); NEUTROPHILS % (AUTO) 71 % (42-75); PLATELET COUNT 202 10^3/uL (130-400); WHITE BLOOD COUNT 7.2 10^3/uL (4.3-11.0)
[2022-11-19 06:23] LABS: ALBUMIN 3.7 GM/DL (3.2-4.5); POTASSIUM 4.2 MMOL/L (3.6-5.0)
[2022-11-19 06:24] LABS: CALCIUM 8.7 MG/DL (8.5-10.1)
[2022-11-19 06:25] LABS: TOTAL PROTEIN 6.9 GM/DL (6.4-8.2)
[2022-11-19 06:27] LABS: BILIRUBIN,TOTAL 0.5 MG/DL (0.1-1.0)
[2022-11-19 06:28] LABS: PHOSPHORUS 3.8 MG/DL (2.3-4.7)
[2022-11-19 06:29] LABS: CREATININE SERUM 1.64 MG/DL (0.60-1.30)
[2022-11-19 06:32] LABS: MAGNESIUM 2.3 MG/DL (1.6-2.4)
[2022-11-19] MEDS: MAGNESIUM 1 GM/100 ML IVPB 100 ML IV SCH (06:53)
[2022-11-19] MEDS: POTASSIUM CHLORIDE 20 MEQ TABLET PO SCH ×2 (06:53→09:59)
[2022-11-19] MEDS: CATHETER FLUSH 10 ML SYR IVP SCH (06:53)
[2022-11-19] MEDS: POTASSIUM CL 10MEQ/50ML IVPB 50 ML IV SCH (06:53)
[2022-11-19] MEDS: inSUlin ASPART 1 UNIT/0.01 ML (PER UNIT) SC SCH ×2 (06:54→12:15)
[2022-11-19] MEDS ORDERED: LOSARTAN 100 MG TABLET PO SCH (09:00)
[2022-11-19] MEDS ORDERED: VITAMIN D3 10 MCG (400 UNITS) TABLET PO SCH (09:00)
[2022-11-19] MEDS ORDERED: amLODIPine 5 MG TABLET PO SCH (09:00)
--- NOTE | 2022-11-19 09:05 | Progress Note - Cardiology ---
Cardiology SOAP Progress Note Subjective: Lying in bed No c/o CP, SOB, palpitations No c/o HERNANDEZ Objective: I&O/Vital Signs 11/18/22 11/18/22 11/18/22 11/19/22 22:00 23:00 23:07 00:00 Pulse 66 64 63 Resp 19 15 16 B/P (MAP) 125/77 (93) 132/86 (101) 137/87 (104) Pulse Ox 91 93 94 94 O2 Delivery Room Air Room Air Room Air Room Air 11/19/22 11/19/22 11/19/22 11/19/22 01:00 02:00 03:00 03:28 Pulse 63 67 66 66 Resp 15 B/P (MAP) 144/92 (109) 157/98 (117) 144/88 (106) Pulse Ox 94 94 95 O2 Delivery Room Air Room Air Room Air 11/19/22 11/19/22 11/19/22 11/19/22 04:00 04:00 05:00 06:00 Pulse 66 66 66 Resp 15 15 B/P (MAP) 135/83 (100) 155/94 (114) 149/89 (109) Pulse Ox 95 96 94 94 O2 Delivery Room Air Room Air Room Air Room Air 11/19/22 11/19/22 11/19/22 11/19/22 07:00 07:00 07:31 08:00 Temp 35.6 Pulse 63 64 58 Resp 29 15 B/P (MAP) 132/79 (96) 135/85 (102) Pulse Ox 93 95 O2 Delivery Room Air Room Air 11/19/22 00:00 Intake Total 1300 ml Output Total 1200 ml Balance 100 ml Weight (Pounds): 274 Weight (Ounces): 5.0 Weight (Calculated Kilograms): 124.560857 Constitutional: AAO x 3, well-developed, well-nourished Respiratory: chest expansion is symmetric, chest is bilaterally symmetric, lungs clear to auscultation Cardiovascular: regular rate-rhythm, S1 and S2 Gastrointestional: soft, audible bowel sounds Extremities: no lower extremity edema bilateral Neurologic/Psychiatric: other Skin: No rash on exposed areas, No ulcerations on exposed areas Results/Procedures: Labs Laboratory Tests 11/18/22 10:20: Urine Color YELLOW, Urine Clarity CLEAR, Urine pH 5.0, Urine Specific [place] 1.015L, Urine Protein 2+H, Urine Glucose (UA) 3+H, Urine Ketones NEGATIVE, Urine Nitrite NEGATIVE, Urine Bilirubin NEGATIVE, Urine Urobilinogen 0.2, Urine Leukocyte Esterase NEGATIVE, Urine RBC (Auto) NEGATIVE, Urine RBC NONE, Urine WBC NONE, Urine Squamous Epithelial Cells NONE, Urine Crystals NONE, Urine Bacteria NEGATIVE, Urine Casts NONE, Urine Mucus NEGATIVE, Urine Culture I ndicated NO, Urine Opiates Screen POSITIVEH, Urine Oxycodone Screen NEGATIVE, Urine Methadone Screen NEGATIVE, Urine Propoxyphene Screen NEGATIVE, Urine Barbiturates Screen NEGATIVE, Ur Tricyclic Antidepressants Screen NEGATIVE, Urine Phencyclidine Screen NEGATIVE, Urine Amphetamines Screen NEGATIVE, Urine Methamphetamines Screen NEGATIVE, Urine Benzodiazepines Screen NEGATIVE, Urine Cocaine Screen NEGATIVE, Urine Cannabinoids Screen NEGATIVE 11/18/22 10:59: Glucometer 232H 11/18/22 16:34: Glucometer 147H 11/18/22 20:22: Glucometer 250H 11/19/22 04:22: 11/19/22 05:51: White Blood Count 7.2, Red Blood Count 4.51, Hemoglobin 11.9L, Hematocrit 38L, Mean Corpuscular Volume 83, Mean Corpuscular Hemoglobin 26, Mean Corpuscular Hemoglobin Concent 32, Red Cell Distribution Width 17.4H, Platelet Count 202, Mean Platelet Volume 11.0, Immature Granulocyte % (Auto) 0, Neutrophils (%) (Auto) 71, Lymphocytes (%) (Auto) 21, Monocytes (%) (Auto) 6, Eosinophils (%) (Auto) 1, Basophils (%) (Auto) 1, Neutrophils # (Auto) 5.1, Lymphocytes # (Auto) 1.5, Monocytes # (Auto) 0.4, Eosinophils # (Auto) 0.1, Basophils # (Auto) 0.0, Immature Granulocyte # (Auto) 0.0, Sodium Level 136, Potassium Level 4.2, Chloride Level 105, Carbon Dioxide Level 22, Anion Gap 9, Blood Urea Nitrogen 17, Creatinine 1.64H, Estimat Glomerular Filtration Rate 50, BUN/Creatinine Ratio 10, Glucose Level 242H, Calcium Level 8.7, Corrected Calcium 8.9, Phosphorus Level 3.8, Magnesium Level 2.3, Total Bilirubin 0.5, Aspartate Amino Transf (AST/SGOT) 16, Alanine Aminotransferase (ALT/SGPT) 26, Alkaline Phosphatase 64, Total Protein 6.9, Albumin 3.7 Microbiology 11/17/22 MRSA Screen - Final, Complete MRSA not isolated Procedures NAME: TAMMY GARNICA JR [facility] REC#: [id number] PT STATUS: ADM Lana : 1970 PHYSICIAN: REVA POLANCO MD ADMIT DATE: 11/17/22/ICU Signed Date of Exam:11/18/22 US RENAL ART DOPPLER LUIS A COMP US RENAL ART DOPPLER LUIS A COMP INDICATION: Hypertensive urgency. COMPARISON: None available. TECHNIQUE: Grayscale, color Doppler, and spectral Doppler imaging of the kidneys and renal arteries was performed. FINDINGS: The right kidney measures 12 cm in length. There is no mass or hydronephrosis within the right kidney. The proximal aspect of the main renal artery is not able to be visualized due to overlying bowel gas. The mid and distal aspects of the main renal artery are patent by color Doppler imaging and have normal low resistant waveforms. Additionally, the resistive indices within the arcuate arteries are normal. The left kidney measures 10 cm in length. There is no mass or hydronephrosis in the left kidney. The proximal aspect of the left main renal artery is obscured by overlying bowel gas. The mid to distal aspect of the left main renal artery is patent by color Doppler imaging and has normal low resistant waveforms and velocities. Normal low resistant waveforms within the arcuate arteries. IMPRESSION: 1. No sonographic features of renal artery stenosis. Dictated by: Dictated on workstation # [id number] Dict: 11/18/221732 Trans: 11/18/221748 [id number] Interpreted by: GRETA LUEVANO MD Electronically signed by: GRETA LUEVANO MD 11/18/22 1749 A/P: Assessment: Uncontrolled HTN - improved with augmentation of antihypertensive regimen - renal artery duplex of 11-18-22 showed no evidence of stenosis - Echocardiogram of 11-18-22 showed LVEF 65-70%. LA mildly dilated DM 2 Chronic knee pain - routine NSAID tx H/O abdominal wall hernia resulting in scrotal hematoma in 2002 Elevated BMI of 45 PTSD Suspected sleep apnea Plan: BP well controlled following augmentation of regimen Monitor lab Continue current regimen OK to discharge home Advise out pt sleep studies ROSSANA LAWSON Nov 19, 2022 09:05
[2022-11-19] MEDS ORDERED: MTP100TCR PO (09:09)
--- NOTE | 2022-11-19 09:38 | Discharge Inst-Simple/Standard ---
Discharge Inst-Standard Discharge Medications New, Converted or Re-Newed RX: Transmitted to Pharmacy Patient Instructions/Follow Up Plan of Care/Instructions/FU: Please continue to take your medications as written. Please follow up with your primary care doctor to follow up this hospital stay. Activity as Tolerated: Yes Discharge Diet: Low Sodium Diet Return to The Hospital For: Chest pain, elevated blood pressure, headache, shortness of breath, fever, weakness, if you feel you are getting worse. REVA POLANCO MD Nov 19, 2022 09:38
--- NOTE | 2022-11-19 09:40 | Discharge Summary ---
Diagnosis/Chief Complaint Date of Admission Nov 17, 2022 at 21:44 Date of Discharge Discharge Date: Nov 19, 2022 Admission Diagnosis HTN emergency Primary Care No,Local Physician Discharge Diagnosis (1) Hypertensive emergency (2) Diabetes mellitus (3) Uncontrolled hypertension Discharge Summary Discharge Physical Exam Allergies: Coded Allergies: No Known Drug Allergies (Unverified , 07/01/18) Vitals & I&Os Vital Signs Date Time Temp Pulse Resp B/P (MAP) Pulse Ox O2 Delivery O2 Flow Rate FiO2 11/19/22 08:00 58 15 135/85 (102) 95 Room Air 11/19/22 07:31 35.6 General Appearance: No Apparent Distress, WD/WN Respiratory: Lungs Clear, No Accessory Muscle Use, No Respiratory Distress Cardiovascular: Regular Rate, Rhythm, No Murmur Gastrointestinal: Normal Bowel Sounds Neurologic/Psychiatric: Alert, Oriented x3 Hospital Course She was admitted to the hospital secondary to hypertensive emergency requiring a Cardene drip to maintain adequate blood pressures. He has had a long history of poorly controlled hypertension and so cardiology was consulted as well. He was transitioned to oral medications and Cardene drip was titrated off and he m aintained his blood pressures without it overnight. Echo was done which showed a preserved EF. Renal ultrasound was obtained which showed no evidence of renal artery stenosis. He was discharged home to follow-up with Dr. Angela as an outpatient and [facility]. Labs (last 24 hrs) Laboratory Tests 11/18/22 10:20: Urine Color YELLOW, Urine Clarity CLEAR, Urine pH 5.0, Urine Specific [place] 1.015L, Urine Protein 2+H, Urine Glucose (UA) 3+H, Urine Ketones NEGATIVE, Urine Nitrite NEGATIVE, Urine Bilirubin NEGATIVE, Urine Urobilinogen 0.2, Urine Leukocyte Esterase NEGATIVE, Urine RBC (Auto) NEGATIVE, Urine RBC NONE, Urine WB C NONE, Urine Squamous Epithelial Cells NONE, Urine Crystals NONE, Urine Bacteria NEGATIVE, Urine Casts NONE, Urine Mucus NEGATIVE, Urine Culture Indicated NO, Urine Opiates Screen POSITIVEH, Urine Oxycodone Screen NEGATIVE, Urine Methadone Screen NEGATIVE, Urine Propoxyphene Screen NEGATIVE, Urine Barbiturates Screen NEGATIVE, Ur Tricyclic Antidepressants Screen NEGATIVE, Urine Phencyclidine Screen NEGATIVE, Urine Amphetamines Screen NEGATIVE, Urine Methamphetamines Screen NEGATIVE, Urine Benzodiazepines Screen NEGATIVE, Urine Cocaine Screen NEGATIVE, Urine Cannabinoids Screen NEGATIVE 11/18/22 10:59: Glucometer 232H 11/18/22 16:34: Glucometer 147H 11/18/22 20:22: Glucometer 250H 11/19/22 04:22: 11/19/22 05:51: White Blood Count 7.2, Red Blood Count 4.51, Hemoglobin 11.9L, Hematocrit 38L, Mean Corpuscular Volume 83, Mean Corpuscular Hemoglobin 26, Mean Corpuscular Hemoglobin Concent 32, Red Cell Distribution Width 17.4H, Platelet Count 202, Mean Platelet Volume 11.0, Immature Granulocyte % (Auto) 0, Neutrophils (%) (Auto) 71, Lymphocytes (%) (Auto) 21, Monocytes (%) (Auto) 6, Eosinophils (%) (Auto) 1, Basophils (%) (Auto) 1, Neutrophils # (Auto) 5.1, Lymphocytes # (Auto) 1.5, Monocytes # (Auto) 0.4, Eosinophils # (Auto) 0.1, Basophils # (Auto) 0.0, Immature Granulocyte # (Auto) 0.0, Sodium Level 136, Potassium Level 4.2, Chloride Level 105, Carbon Dioxide Level 22, Anion Gap 9, Blood Urea Nitrogen 17, Creatinine 1.64H, Estimat Glomerular Filtration Rate 50, BUN/Creatinine Ratio 10, Glucose Level 242H, Calcium Level 8.7, Corrected Calcium 8.9, Phosphorus Level 3.8, Magnesium Level 2.3, Total Bilirubin 0.5, Aspartate Amino Transf (AST/SGOT) 16, Alanine Aminotransferase (ALT/SGPT) 26, Alkaline Phosphatase 64, Total Protein 6.9, Albumin 3.7 Microbiology 11/17/22 MRSA Screen - Final, Complete MRSA not isolated Patient resulted labs reviewed. Pending Labs Laboratory Tests 11/19/22 04:22: Mean Blood Glucose [Pending], Hemoglobin A1c [Pending] 11/19/22 05:51: White Blood Count 7.2, Red Blood Count 4.51, Hemoglobin 11.9, Hematocrit 38, Mean Corpuscular Volume 83, Mean Corpuscular Hemoglobin 26, Mean Corpuscular Hemoglobin Concent 32, Red Cell Distribution Width 17.4, Platelet Count 202, Mean Platelet Volume 11.0, Immature Granulocyte % (Auto) 0, Neutrophils (%) (Auto) 71, Lymphocytes (%) (Auto) 21, Monocytes (%) (Auto) 6, Eosinophils (%) (Auto) 1, Basophils (%) (Auto) 1, Neutrophils # (Auto) 5.1, Lymphocytes # (Auto) 1.5, Monocytes # (Auto) 0.4, Eosinophils # (Auto) 0.1, Basophils # (Auto) 0.0, Immature Granulocyte # (Auto) 0.0, Sodium Level 136, Potassium Level 4.2, Chloride Level 105, Carbon Dioxide Level 22, Anion Gap 9, Blood Urea Nitrogen 17, Creatinine 1.64, Estimat Glomerular Filtration Rate 50, BUN/Creatinine Ratio 10, Glucose Level 242, Calcium Level 8.7, Corrected Calcium 8.9, Phosphorus Level 3.8, Magnesium Level 2.3, Total Bilirubin 0.5, Aspartate Amino Transf (AST/SGOT) 16, Alanine Aminotransferase (ALT/SGPT) 26, Alkaline Phosphatase 64, Total Protein 6.9, Albumin 3.7 Imaging: Reviewed Imaging Report Discussion & Recommendations Discharge Planning: >30 minutes discharge planning Discharge Home Medications: Active Scripts Active Metoprolol Succinate 100 Mg Tab.er.24h 100 Mg PO BID Reported Meloxicam 15 Mg Tablet 15 Mg PO DAILY LAST FILLED 03-18-2022 #90/90 DAY SUPPLY Potassium Chloride 20 Meq Tablet.er 20 Meq PO BID Fluoxetine HCl 20 Mg Capsule 20 Mg PO HS Venlafaxine HCl ER (Venlafaxine HCl) 150 Mg Cap.er.24h 150 Mg PO HS Hydralazine HCl 10 Mg Tablet 30 Mg PO BID TAKES 3 (10MG) TABS Quetiapine Fumarate 400 Mg Tablet 400 Mg PO BID Prazosin HCl 5 Mg Capsule 5 Mg PO HS Losartan Potassium 100 Mg Tablet 100 Mg PO DAILY Chlorthalidone 25 Mg Tablet 25 Mg PO DAILY Metformin HCl ER (Metformin HCl) 500 Mg Tab.er.24 1,000 Mg PO BID TAKES 2 (500MG) TABS Jardiance (Empagliflozin) 25 Mg Tablet 25 Mg PO DAILY LAST FILLED 06-07-2022 #30/30 DAY SUPPLY Vitamin D3 (Vitamin D) 10 Mcg (400 Unit) Tablet 1,000 Unit PO DAILY Amlodipine Besylate 10 Mg Tablet 10 Mg PO DAILY Instructions to patient/family Please see electronic discharge instructions given to patient. REVA POLANCO MD Nov 19, 2022 09:40
[2022-11-19] MEDS: hydrALAZINE 10 MG TABLET PO SCH (09:59)
[2022-11-19] MEDS: ENOXAPARIN 40 MG/0.4 ML SYRINGE SQ SCH (09:59)
[2022-11-19] MEDS: metFORMIN EXT RELEASE 500 MG TABLET PO SCH (09:59)
[2022-11-19] MEDS: QUEtiapine IMMEDIATE RELEASE 200 MG TABLET PO SCH (09:59)
[2022-11-19] MEDS: niCARdipine INJECTION 50 MG in NS (IVPB) 250 ML 230 ML IV SCH (11:15)
[2022-11-19 12:04] VITALS: BP 135/85
--- NOTE | 2022-11-19 18:01 | Progress Note - Cardiology ---
Cardiology SOAP Progress Note Subjective: No cp or palp or syncope No shortness of breath at rest No n/v/d No focal weakness Gen weakness and malaise improving Objective: I&O/Vital Signs 11/19/22 11/19/22 11/19/22 11/19/22 07:00 07:00 07:31 08:00 Temp 35.6 Pulse 63 64 58 Resp 29 15 B/P (MAP) 132/79 (96) 135/85 (102) Pulse Ox 93 95 O2 Delivery Room Air Room Air 11/19/22 11/19/22 08:00 12:04 Temp 35.6 Pulse 58 Resp 15 B/P (MAP) 135/85 Pulse Ox 95 95 O2 Delivery Room Air Room Air 11/19/22 00:00 Intake Total 1300 ml Output Total 1200 ml Balance 100 ml Weight (Pounds): 274 Weight (Ounces): 5.0 Weight (Calculated Kilograms): 124.124748 Constitutional: AAO x 3, well-developed, well-nourished Respiratory: chest expansion is symmetric, chest is bilaterally symmetric, lungs clear to auscultation Cardiovascular: regular rate-rhythm, S1 and S2 Gastrointestional: soft, audible bowel sounds Extremities: no lower extremity edema bilateral Neurologic/Psychiatric: other Skin: No rash on exposed areas, No ulcerations on exposed areas Results/Procedures: Labs Laboratory Tests 11/18/22 20:22: Glucometer 250H 11/19/22 04:22: 11/19/22 05:51: White Blood Count 7.2, Red Blood Count 4.51, Hemoglobin 11.9L, Hematocrit 38L, Mean Corpuscular Volume 83, Mean Corpuscular Hemoglobin 26, Mean Corpuscular Hemoglobin Concent 32, Red Cell Distribution Width 17.4H, Platelet Count 202, Mean Platelet Volume 11.0, Immature Granulocyte % (Auto) 0, Neutrophils (%) (Auto) 71, Lymphocytes (%) (Auto) 21, Monocytes (%) (Auto) 6, Eosinophils (%) (Auto) 1, Basophils (%) (Auto) 1, Neutrophils # (Auto) 5.1, Lymphocytes # (Auto) 1.5, Monocytes # (Auto) 0.4, Eosinophils # (Auto) 0.1, Basophils # (Auto) 0.0, Immature Granulocyte # (Auto) 0.0, Sodium Level 136, Potassium Level 4.2, Chloride Level 105, Carbon Dioxide Level 22, Anion Gap 9, Blood Urea Nitrogen 17, Creatinine 1.64H, Estimat Glomerular Filtration Rate 50, BUN/Creatinine Rat io 10, Glucose Level 242H, Calcium Level 8.7, Corrected Calcium 8.9, Phosphorus Level 3.8, Magnesium Level 2.3, Total Bilirubin 0.5, Aspartate Amino Transf (AST/SGOT) 16, Alanine Aminotransferase (ALT/SGPT) 26, Alkaline Phosphatase 64, Total Protein 6.9, Albumin 3.7 11/19/22 11:44: Glucometer 250H Microbiology 11/17/22 MRSA Screen - Final, Complete MRSA not isolated Laboratory Tests 11/17/22 19:50 11/18/22 04:22 11/19/22 05:51 A/P: Assessment: Uncontrolled HTN - improved with augmentation of antihypertensive regimen - renal artery duplex of 11-18-22 showed no evidence of stenosis - Echocardiogram of 11-18-22 showed LVEF 65-70%. 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
[2022-11-24] MEDS ORDERED: LOSA100T58 PO (11:29)
[2022-11-24] MEDS ORDERED: MTP100TCR PO (11:29)
[2022-11-24] MEDS ORDERED: AMLO-251 PO (11:29)
[2022-11-24] MEDS ORDERED: DOXA4TAB2 PO (11:29)
== END 2022-11-19 11:14 | disposition home or self-care (01) ==
LOC: EDUNIT# 19:07 → ER 19:11 → ICU 21:44 → UNDOADMOB 21:44 → ICU 23:07 → UNDODISOB 11-19 11:14
PROVIDERS: ADMIT Internal Medicine; ATTEND Internal Medicine
DX: I16.0 Hypertensive urgency (principal); E11.9 Type 2 diabetes mellitus without complications; I10 Essential (primary) hypertension; H93.19 Tinnitus, unspecified ear; G89.29 Other chronic pain; M25.569 Pain in unspecified knee; F43.10 Post-traumatic stress disorder, unspecified; Z79.899 Other long term (current) drug therapy; Z79.84 Long term (current) use of oral hypoglycemic drugs
CPT/HCPCS: 36415; 70450; 76770; 80053; 80306; 81000; 82947; 83036; 83735; 84100; 84484; 85007; 85025; 85027; 87081; 93005; 93306; 93975; 96366; 96372; 96375; G0378

== ENCOUNTER 2022-11-22 21:48 | Observation (INO) | payer MEDICARE, MEDICAID ==
[~2022-11-22] VITALS: Ht 170.2 cm; Wt 124.7 kg
[~2022-11-22 21:48] MED LIST changes: +CHLO25TA22 PO; +CHLO50TA2 PO; +EMPA25TA PO; +FLUO20CA48 PO; +HYDR-3922 PO; +LOSA-415 PO; +LOSA100T58 PO; +MELO10CA3 PO; +MELO15TA39 PO; +METF-478 PO; +MTP100TCR PO; +NF-VITD400 PO; +POTA-330 PO; +PRAZ5CAP2 PO; +SITA100T12 PO; +VENL150C98 PO
[2022-11-22] MEDS ORDERED: hydrALAZINE 10 MG TABLET PO ONE (22:45)
[2022-11-22] MEDS ORDERED: hydrALAZINE INJECTION 20 MG/ML VIAL IV ONE (22:45)
[2022-11-22 23:42] LABS: BASOPHILS # (AUTO) 0.1 10^3/uL (0.0-0.1); BASOPHILS % (AUTO) 1 % (0-10); EOSINOPHILS # (AUTO) 0.2 10^3/uL (0.0-0.3); EOSINOPHILS % (AUTO) 2 % (0-10); HEMATOCRIT 45 % (40-54); HEMOGLOBIN 14.4 g/dL (13.3-17.7); LYMPHOCYTES # (AUTO) 2.7 10^3/uL (1.0-4.0); LYMPHOCYTES % (AUTO) 26 % (12-44); MEAN CORPUSCULAR HEMOGLOBIN 27 pg (25-34); MEAN CORPUSCULAR HGB CONC 32 g/dL (32-36); MEAN CORPUSCULAR VOLUME 83 fL (80-99); MONOCYTES # (AUTO) 0.7 10^3/uL (0.0-1.0); MONOCYTES % (AUTO) 6 % (0-12); NEUTROPHILS # (AUTO) 6.6 10^3/uL (1.8-7.8); NEUTROPHILS % (AUTO) 65 % (42-75); PLATELET COUNT 275 10^3/uL (130-400); WHITE BLOOD COUNT 10.2 10^3/uL (4.3-11.0)
[2022-11-22 23:46] LABS: ALBUMIN 4.3 GM/DL (3.2-4.5); CHLORIDE 100 MMOL/L (98-107); POTASSIUM 3.5 MMOL/L (3.6-5.0); SODIUM 137 MMOL/L (135-145)
[2022-11-22 23:47] LABS: CALCIUM 9.9 MG/DL (8.5-10.1)
[2022-11-22 23:48] LABS: GLUCOSE 183 MG/DL (70-105); TOTAL PROTEIN 8.5 GM/DL (6.4-8.2)
[2022-11-22 23:49] LABS: CARBON DIOXIDE 23 MMOL/L (21-32)
[2022-11-22 23:50] LABS: BILIRUBIN,TOTAL 0.5 MG/DL (0.1-1.0)
[2022-11-22 23:51] LABS: ALKALINE PHOSPHATASE 76 U/L (40-136)
[2022-11-22 23:52] LABS: CREATININE SERUM 1.47 MG/DL (0.60-1.30); GFR ESTIMATED 57
[2022-11-22 23:53] LABS: BUN/CREATININE RATIO 10
[2022-11-22 23:55] LABS: ALANINE AMINOTRANSFERASE 27 U/L (0-55)
--- NOTE | 2022-11-23 00:34 | ED Cardiac General ---
History of Present Illness General Chief Complaint: Cardiac/General Problems Stated Complaint: CONGESTED/ BLOOD PRESSURE PROBLEMS Source: patient Exam Limitations: no limitations History of Present Illness Date Seen by Provider: Nov 22, 2022 Time Seen by Provider: 22:35 Initial Comments Here with complaint of high blood pressure problems that has been going on tonight. He was just admitted for malignant hypertension a few days ago and discharged with the addition of metoprolol 100 mg ER p.o. twice daily as well as his other medicines. Initially it sounded as if he had stopped his other medications but he actually reports that he is taking all of his medicines. He had taken his medicines this evening and was feeling some ear fullness and headache but his blood pressure and all of those symptoms resolved but then came back and ultimately he represented with fairly significant high blood pressure in the 180s to 200s range despite taking all of his medicines. Denies chest pain, nausea, vomiting, weakness, breathing problems, sweating. 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 ASA po PLATFORM MATERIAL HANDLER MANAGER: No Associated Systoms: No Chest Pain, No Cough, No Fever/Chills, No Nausea/Vomiting, No Shortness of Air, No Weakness Allergies and Home Medications Allergies Coded Allergies: No Known Drug Allergies (Unverified , 07/01/18) Patient Home Medication List Home Medication List Reviewed: Yes Amlodipine Besylate (Amlodipine Besylate) 10 Mg Tablet, 10 MG PO DAILY, (Reported) Entered as Reported by: DANIKA MOISE on 07/01/18 2100 Fluoxetine HCl (Fluoxetine HCl) 20 Mg Capsule, 20 MG PO HS, (Reported) Entered as Reported by: NIEVES FELIPE on 11/18/22 1400 Hydralazine HCl (Hydralazine HCl) 10 Mg Tablet, 30 MG PO BID, (Reported) Entered as Reported by: NIEVES FELIPE on 11/18/22 1400 Losartan Potassium (Losartan Potassium) 100 Mg Tablet, 100 MG PO DAILY, (Reported) Entered as Reported by: NIEVES FELIPE on 11/18/22 1400 Metformin HCl (Metformin HCl ER) 500 Mg Tab.er.24, 1,000 MG PO BID, (Reported) Entered as Reported by: FERMIN MORELOS on 11/18/22 0903 Metoprolol Succinate (Metoprolol Succinate) 100 Mg Tab.er.24h, 100 MG PO BID Prescribed by: ROSSANA LAWSON on 11/19/22 09 Prazosin HCl (Prazosin HCl) 5 Mg Capsule, 5 MG PO HS, (Reported) Entered as Reported by: NIEVES FELIPE on 11/18/221399 Quetiapine Fumarate (Quetiapine Fumarate) 400 Mg Tablet, 400 MG PO BID, (Reported) Entered as Reported by: NIEVES FELIPE on 11/18/221399 Venlafaxine HCl (Venlafaxine HCl ER) 150 Mg Cap.er.24h, 150 MG PO HS, (Reported) Entered as Reported by: NIEVES FELIPE on 11/18/221399 Vitamin D (Vitamin D3) 10 Mcg (400 Unit) Tablet, 1,000 UNIT PO DAILY, (Reported) Entered as Reported by: FERMIN MORELOS on 11/18/22902 Discontinued Medications Carvedilol (Carvedilol) 12.5 Mg Tablet, 25 MG PO BID Discontinued Reason: No Longer Taking Prescribed by: PAMELA LAZO on 07/02/181116 Chlorthalidone (Chlorthalidone) 50 Mg Tablet, 50 MG PO DAILY, (Reported) Discontinued Reason: Prescription changed Entered as Reported by: FERMIN MORELOS on 11/18/22902 Chlorthalidone (Chlorthalidone) 25 Mg Tablet, 25 MG PO DAILY, (Reported) Entered as Reported by: NIEVES FELIPE on 11/18/221399 Empagliflozin (Jardiance) 25 Mg Tablet, 25 MG PO DAILY, (Reported) Entered as Reported by: FERMIN MORELOS on 11/18/22902 Hydralazine HCl (Hydralazine HCl) 25 Mg Tablet, 50 MG PO Q8HR Discontinued Reason: No Longer Taking Prescribed by: PAMELA LAZO on 07/02/181116 Hydrochlorothiazide (Hydrochlorothiazide) 12.5 Mg Tablet, 12.5 MG PO DAILY Discontinued Reason: No Longer Taking Prescribed by: PAMELA LAZO on 07/02/181116 Hydroxyzine Pamoate (Hydroxyzine Pamoate) 50 Mg Capsule, 50 MG PO BID, (Reported) Discontinued Reason: No Longer Taking Entered as Reported by: DANIKA MOISE on 07/01/182117 Losartan Potassium (Cozaar) 50 Mg Tablet, 50 MG PO DAILY, (Reported) Discontinued Reason: Prescription changed Entered as Reported by: FERMIN MORELOS on 11/18/22902 Meloxicam (Meloxicam) 15 Mg Tablet, 15 MG PO DAILY, (Reported) Entered as Reported by: NIEVES FELIPE on 11/18/22 1400 Meloxicam, Submicronized (Meloxicam) 10 Mg Capsule, 15 MG PO DAILY, (Reported) Discontinued Reason: No Longer Taking Entered as Reported by: FERMIN MORELOS on 11/18/22902 Potassium Chloride (Potassium Chloride) 20 Meq Tablet.er, 20 MEQ PO BID, (Reported) Entered as Reported by: NIEVES FELIPE on 11/18/22 1400 Prazosin HCl (Prazosin HCl) 2 Mg Capsule, 2 MG PO HS, (Reported) Discontinued Reason: Prescription changed Entered as Reported by: FERMIN MORELOS on 11/18/22902 Quetiapine Fumarate (Quetiapine Fumarate) 400 Mg Tablet, 400 MG PO BID, (Reported) Discontinued Reason: No Longer Taking Entered as Reported by: DANIKA MOISE on 07/01/182117 Sitagliptin Phosphate (Januvia) 100 Mg Tablet, 100 MG PO DAILY, (Reported) Discontinued Reason: No Longer Taking Entered as Reported by: FERMIN MORELOS on 11/18/22902 Review of Systems Review of Systems Constitutional: see HPI; No chills, No fever EENTM: See HPI; No Mouth Pain Respiratory: Denies Cough, Denies Shortness of Air Cardiovascular: Denies Edema, Denies Lightheadedness Gastrointestinal: Denies Abdominal Pain, Denies Nausea, Denies Vomiting Genitourinary: No Symptoms Reported Musculoskeletal: No back pain, No neck pain Skin: no symptoms reported Psychiatric/Neurological: No Symptoms Reported Past Aqsoodk-Vrvgtb-Semhmo Hx Patient Social History Tobacco Use?: No Use of E-Cig and/or Vaping dev: No Substance use?: No Alcohol Use?: No Immunizations Up To Date Tetanus Booster (TDap): Unknown Seasonal Allergies Seasonal Allergies: No Past Medical History Surgeries: Yes (SCROTAL traumatic hematoma evacuation) Respiratory: No Cardiac: Yes Hypertension Neurological: No Genitourinary: No Gastrointestinal: No Musculoskeletal: Yes (L KNEE) Arthritis Endocrine: No HEENT: No Cancer: No Psychosocial: Yes Anxiety, PTSD Integumentary: No Blood Disorders: No Family Medical History Reviewed Nursing Family Hx No Pertinent Family Hx Physical Exam Vital Signs Capillary Refill : Height, Weight, BMI Height: 5'7.50" Weight: 274lbs. 5.0oz. 124.984859en; 44.74 BMI Method:Stated General Appearance: No Apparent Distress, WD/WN HEENT: PERRL/EOMI, Pharynx Normal Neck: Non Tender, Supple Respiratory: Lungs Clear, Normal Breath Sounds Cardiovascular: Regular Rate, Rhythm, No Murmur Gastrointestinal: Non Tender, Soft Extremity: Normal Range of Motion, Non Tender Neurologic/Psychiatric: Alert, Oriented x3 Skin: Normal Color, Warm/Dry Progress/Results/Core Measures Results/Orders Lab Results Laboratory Tests Test 11/22/22 23:23 Range/Units White Blood Count 10.2 4.3-11.0 10^3/uL Red Blood Count 5.42 4.30-5.52 10^6/uL Hemoglobin 14.4 # 13.3-17.7 g/dL Hematocrit 45 40-54 % Mean Corpuscular Volume 83 80-99 fL Mean Corpuscular Hemoglobin 27 25-34 pg Mean Corpuscular Hemoglobin Concent 32 32-36 g/dL Red Cell Distribution Width 16.6 H 10.0-14.5 % Platelet Count 275 130-400 10^3/uL Mean Platelet Volume 11.0 9.0-12.2 fL Immature Granulocyte % (Auto) 0 % Neutrophils (%) (Auto) 65 42-75 % Lymphocytes (%) (Auto) 26 12-44 % Monocytes (%) (Auto) 6 0-12 % Eosinophils (%) (Auto) 2 0-10 % Basophils (%) (Auto) 1 0-10 % Neutrophils # (Auto) 6.6 1.8-7.8 10^3/uL Lymphocytes # (Auto) 2.7 1.0-4.0 10^3/uL Monocytes # (Auto) 0.7 0.0-1.0 10^3/uL Eosinophils # (Auto) 0.2 0.0-0.3 10^3/uL Basophils # (Auto) 0.1 0.0-0.1 10^3/uL Immature Granulocyte # (Auto) 0.0 0.0-0.1 10^3/uL Sodium Level 137 135-145 MMOL/L Potassium Level 3.5 L 3.6-5.0 MMOL/L Chloride Level 100 98-107 MMOL/L Carbon Dioxide Level 23 21-32 MMOL/L Anion Gap 14 5-14 MMOL/L Blood Urea Nitrogen 15 7-18 MG/DL Creatinine 1.47 H 0.60-1.30 MG/DL Estimat Glomerular Filtration Rate 57 BUN/Creatinine Ratio 10 Glucose Level 183 H 70-105 MG/DL Calcium Level 9.9 8.5-10.1 MG/DL Corrected Calcium 9.7 8.5-10.1 MG/DL Total Bilirubin 0.5 0.1-1.0 MG/DL Aspartate Amino Transf (AST/SGOT) 16 5-34 U/L Alanine Aminotransferase (ALT/SGPT) 27 0-55 U/L Alkaline Phosphatase 76 40-136 U/L Troponin I < 0.028 <0.028 NG/ML Total Protein 8.5 H 6.4-8.2 GM/DL Albumin 4.3 3.2-4.5 GM/DL My Orders Orders - LORENA RODRIGUEZ MD Troponin I [place] (11/22/22 22:34) Cbc And Automated Diff (11/22/22 22:34) Comprehensive Metabolic Panel (11/22/22 22:34) Ed Iv/Invasive Line Start (11/22/22 22:34) Ekg Tracing (11/22/22 22:34) Monitor-Rhythm Ecg Trace Only (11/22/22 22:34) Hydralazine Injection (Hydralazine Injec (11/22/22 22:45) Hydralazine Tablet (Hydralazine Tablet (11/22/22 22:45) Acetaminophen Tablet (Acetaminophen Ta (11/23/22 00:45) Medications Given in ED Current Medications Medications Dose Ordered Sig/Radha Route Start Time Stop Time Status Last Admin Dose Admin Acetaminophen 1,000 mg ONCE ONCE PO 11/23/22 00:45 11/23/22 00:46 11/23/22 00:42 1,000 MG Hydralazine HCl 10 mg ONCE ONCE IV 11/22/22 22:45 11/22/22 22:46 DC 11/22/22 23:34 10 MG Hydralazine HCl 10 mg ONCE ONCE PO 11/22/22 22:45 11/22/22 22:46 DC 11/23/22 00:34 10 MG Progress Progress Note : Progress Note Seen and evaluated. IV, labs and EKG ordered. We will give hydralazine 10 mg IV and 10 mg p.o. Labs include CBC, CMP and troponin. We will I did make contact with Dr Lazo at [phone] regarding this patient. If we can get his blood pressure controlled then maybe he can go home but otherwise he would recommend coming into the ICU and being on night pride drip. Monitor patient. Hydralazine 10 mg IV and 10 mg p.o. ordered. Differential diagnosis includes malignant hypertension, cardiac event, electroly te abnormality, renal dysfunction 0027: Labs delayed due to difficult IV stick but we are able to get that via ultrasound guidance. CBC reviewed and is grossly normal. CMP reviewed and shows potassium 3.5 and creatinine at 1.47 which is similar to previous hospitalization. Glucose 183 noted. Troponin is negative. LFTs are normal. Blood pressure ranging from 160s to 190s. Patient to be admitted to the ICU. I did discuss the case with Dr. Bishop, on-call for hospitalist team and he accepts patient for admission, inpatient status for malignant hypertension. We will write orders for night pride drip per protocol to keep systolic blood pressure less than 160. This was discussed with patient and family who agree with plan. Initial ECG Impression Date: Nov 23, 2022 Initial ECG Impression Time: 22:50 Initial ECG Rate: 78 Initial ECG Rhythm: Normal Sinus Comment Sinus rhythm with T wave inversion in inferior and lateral leads. Normal axis. No evidence of ST elevation MS. Interpreted by me. Departure Communication (Admissions) Time/Spoke to Admitting Phy: 00:27 Time/Spoke to Consulting Phy: 23:22 Impression Primary Impression: Malignant hypertension Disposition: ADMITTED INPATIENT Condition: Stable Admissions Decision to Admit Reason: Admit from ER (General) Decision to Admit/Date: Nov 23, 2022 Time/Decision to Admit Time: 00:27 Departure-Patient Inst. Referrals: NO,LOCAL PHYSICIAN (PCP/Family) Primary Care Physician LORENA RODRIGUEZ MD Nov 23, 2022 00:34
[2022-11-23] MEDS ORDERED: ACETAMINOPHEN 500 MG TABLET PO ONE (00:45)
[2022-11-23] MEDS ORDERED: LOSARTAN 100 MG TABLET PO SCH (02:01)
[2022-11-23] MEDS ORDERED: amLODIPine 10 MG TABLET PO SCH (02:02)
[2022-11-23] MEDS ORDERED: PRAZOSIN 1 MG PO SCH (02:02)
[2022-11-23] MEDS ORDERED: D5W IV SCH (02:15)
[2022-11-23] MEDS ORDERED: NITROPRUSSIDE IV SCH (02:15)
[2022-11-23] MEDS: hydrALAZINE 10 MG TABLET PO SCH ×2 (03:34→09:17)
[2022-11-23] MEDS ORDERED: NS IV 500 ML 500 ML IV PRN (04:45)
[2022-11-23 05:18] LABS: BASOPHILS % (AUTO) 1 % (0-10); EOSINOPHILS # (AUTO) 0.1 10^3/uL (0.0-0.3); EOSINOPHILS % (AUTO) 1 % (0-10); HEMATOCRIT 43 % (40-54); HEMOGLOBIN 13.7 g/dL (13.3-17.7); LYMPHOCYTES % (AUTO) 22 % (12-44); MEAN CORPUSCULAR HEMOGLOBIN 27 pg (25-34); MEAN CORPUSCULAR HGB CONC 32 g/dL (32-36); MEAN CORPUSCULAR VOLUME 83 fL (80-99); MEAN PLATELET VOLUME 11.1 fL (9.0-12.2); MONOCYTES # (AUTO) 0.6 10^3/uL (0.0-1.0); MONOCYTES % (AUTO) 7 % (0-12); NEUTROPHILS # (AUTO) 6.1 10^3/uL (1.8-7.8); NEUTROPHILS % (AUTO) 69 % (42-75); PLATELET COUNT 245 10^3/uL (130-400); WHITE BLOOD COUNT 8.7 10^3/uL (4.3-11.0)
[2022-11-23 05:35] LABS: ALBUMIN 4.1 GM/DL (3.2-4.5); POTASSIUM 3.7 MMOL/L (3.6-5.0)
[2022-11-23 05:37] LABS: CALCIUM 9.3 MG/DL (8.5-10.1)
[2022-11-23 05:38] LABS: TOTAL PROTEIN 7.8 GM/DL (6.4-8.2)
[2022-11-23 05:40] LABS: BILIRUBIN,TOTAL 0.5 MG/DL (0.1-1.0)
[2022-11-23 05:41] LABS: PHOSPHORUS 3.6 MG/DL (2.3-4.7)
[2022-11-23 05:42] LABS: CREATININE SERUM 1.33 MG/DL (0.60-1.30)
[2022-11-23 05:45] LABS: MAGNESIUM 1.8 MG/DL (1.6-2.4)
[2022-11-23] MEDS ORDERED: D5W (IVPB) 250 ML (EXCEL) 250 ML IV ONE (06:08)
[2022-11-23] MEDS: POTASSIUM CL 10MEQ/50ML IVPB 50 ML IV SCH (06:09)
[2022-11-23] MEDS: amLODIPine 10 MG TABLET PO SCH (06:28)
[2022-11-23] MEDS: LOSARTAN 100 MG TABLET PO SCH (06:28)
[2022-11-23] MEDS: POTASSIUM CHLORIDE 20 MEQ TABLET PO SCH (06:28)
[2022-11-23] MEDS: MAGNESIUM 1 GM/100 ML IVPB 100 ML IV SCH ×3 (06:30→08:11)
[2022-11-23] MEDS ORDERED: ACETAMINOPHEN 500 MG TABLET PO PRN (07:00)
[2022-11-23] MEDS ORDERED: LABETALOL 5 mg/ml 4 ML SINGLE DOSE SYRINGE IV ONE (07:00)
[2022-11-23] MEDS ORDERED: ONDANSETRON INJECTION 4 MG/2 ML (SDV) IVP PRN (07:00)
[2022-11-23] MEDS ORDERED: POTASSIUM CHLORIDE 20 MEQ TABLET PO ONE (08:00)
--- NOTE | 2022-11-23 08:50 | Tele-ICU Progress Note ---
Subjective Date Seen by a Provider: Nov 23, 2022 Time Seen by a Provider: 09:47 Subjective/Events-last exam (Tele-ICU Physician , Progress Note ) Service provided via interactive audio and video telecommunications E-CARE sy stem to a patient admitted to ICU bed in [facility]. Patient is seen today due to persistent need of ICU care Available chart/ vitals / labs / Images reviewed Video assessment done using teleICU camera, rest of exam as per RN This patient admitted last night via emergency room due to persistent high blood pressures. Recently on 11/17/2022 he is admitted to ICU with hypertensive emergency and his medications were optimized to metoprolol 100 mg daily, amlodipine 10 mg daily and losartan 100 mg daily. Despite those medications his blood pressure has been running high hence he came to the emergency room and admitted into the ICU for further management. Currently he denies any headache nausea or vomiting. His blood pressure is still running high. He had a as need ed IV hydralazine and labetalol. Impression 1. Uncontrolled severe hypertension 2. History of type 2 diabetes mellitus 3. Osteoarthritis of the knee 4. Morbid obesity. Recommendations 1. We will change the hydralazine to 50 mg p.o. 3 times daily 2. Continue metoprolol 100 mg p.o. twice daily and amlodipine 10 mg daily. Losartan 100 mg daily. 3. Cardiology consultation is requested 4. Diabetes mellitus management per primary care physician 5. Advised low-salt diet and weight reduction. Coordination of care with primary care physician and bedside consultants. I am remotely monitoring this patient from Tele icu station in [place]. I am unable to do the bedside exam, and history/physical and pertinent information is taken from other notes in the computer and bedside staff. Discussed with bedside RN as well as in MDR rounds. Certain portions of this document may have been dictated utilizing voice recognition technology such as [employer]. Inherent to this technology, typogra phical and grammatical errors may exist. As much as I am diligent to identify and correct to these mistakes, some errors may remain in the document. Critical care time devoted to this patient today is approximately is--25 minutes Sepsis Event Evaluation Height, Weight, BMI Height: 5'7.50" Weight: 274lbs. 5.0oz. 124.844501kw; 43.84 BMI Method:Stated Exam Exam Patient acknowledged, consented, and participated in this virtual visit which was conducted using real time audio/video Vital Signs Date Time Temp Pulse Resp B/P (MAP) Pulse Ox O2 Delivery O2 Flow Rate FiO2 11/23/22 08:00 69 11 162/106 (124) 96 Room Air 11/23/22 07:38 36.7 11/23/22 07:30 73 11/23/22 07:00 71 12 170/110 (130) 97 Room Air 11/23/22 06:00 71 15 175/109 (131) 99 Room Air 11/23/22 05:00 71 15 163/95 (117) 96 Room Air 11/23/22 04:09 Room Air 11/23/22 04:00 70 16 168/88 (115) 97 Room Air 11/23/22 03:45 71 16 175/95 (119) 95 Room Air 11/23/22 03:30 73 17 169/116 (136) 95 Room Air 11/23/22 03:15 68 12 172/100 (125) 97 Room Air 11/23/22 03:00 66 13 175/119 (135) 98 Room Air 11/23/22 02:45 74 15 170/103 (133) 98 Room Air 11/23/22 02:30 75 12 168/101 (120) 96 Room Air 11/23/22 02:24 77 13 184/105 (130) 99 Room Air 11/23/22 02:00 Room Air 11/23/22 01:30 75 11/23/22 01:30 75 14 189/103 (130) 100 Room Air 11/23/22 01:28 36.1 74 25 195/109 (134) 97 Room Air 11/23/22 01:20 71 20 154/97 97 Room Air 11/22/22 22:28 37.0 95 20 154/97 (116) 99 Room Air I & O 11/23/22 07:00 Intake Total 245 ml Output Total 700 ml Balance -455 ml Height & Weight Height: 5'7.50" Weight: 274lbs. 5.0oz. 124.486141yh; 43.84 BMI Method:Stated General Appearance: No Apparent Distress, WD/WN HEENT: PERRL/EOMI, Pharynx Normal Neck: Non Tender, Supple Respiratory: Lungs Clear, Normal Breath Sounds Cardiovascular: Regular Rate, Rhythm, No Murmur Capillary Refill: Less Than 3 Seconds Extremity: Normal Range of Motion, Non Tender Neurologic/Psychiatric: Alert, Oriented x3 Skin: Normal Color, Warm/Dry Results Lab Laboratory Tests 11/22/22 23:23 11/23/22 04:43 Assessment/Plan Assessment/Plan as above Critical Care: Critically Ill Patient Time spent with patient (mins): 25 KING ZHONG MD Nov 23, 2022 08:50
[2022-11-23] MEDS ORDERED: LABETALOL 5 mg/ml 4 ML SINGLE DOSE SYRINGE IV SCH (11:00)
[2022-11-23] MEDS: inSUlin ASPART 1 UNIT/0.01 ML (PER UNIT) SC SCH ×3 (11:45→21:35)
--- NOTE | 2022-11-23 12:43 | Consultation-Cardiology ---
HPI-Cardiology Cardiology Consultation: Date of Consultation 11/23/22 Time Seen by a Provider: 09:30 Date of Admission Attending Physician No,Local Physician Admitting Physician Admitting Physician: Shane Bishop MD Attending Physician: Whitney Queen MD Consulting Physician PAMELA LAZO MD, MA, FACP, FACC, [facility] [place], CCDS Physician requesting consult: Dr Queen HPI: Chief Complaint: Reason for Card consult: Uncontrolled hypertension 52 y o man recently hospitalized with uncontrolled hypertension returns with the same. No cp or palp or syncope or shortness of breath or leg swelling or n/v/d or focal weakness Review of Systems-Cardiology Review of Systems Constitutional: No malaise, No tiredness Eyes: No vision change Ears/Nose/Throat: No ear discharge, No nasal drainage, No recent hearing loss Respiratory: As described under HPI Cardiovascular: As described under HPI Gastrointestinal: As described under HPI Genitourinary: No dysuria, No hematuria, No urine frequency changes Musculoskeletal: No back pain, No joint pain Skin: No rash, No ulcerations Psychiatric/Neurological: No seizure, No focal weakness, No syncope Hematologic: No bleeding abnormalities PBK-Zujowc-Jmqyir Hx Patient Social History Smoking Status: Never a Smoker 2nd Hand Smoke Exposure: No Alcohol Use?: No Pt feels they are or have been: No Immunizations Up To Date Tetanus Booster (TDap): Unknown Date of Pneumonia Vaccine: Apr 04, 2018 Past Medical History PMH As described under Assessment. Family Medical History Family Medical History: No reported family h/o CAD. Allergies and Home Medications Allergies Coded Allergies: No Known Drug Allergies (Unverified , 07/01/18) Patient Home Medication List Home Medication List Reviewed: Yes Amlodipine Besylate (Amlodipine Besylate) 10 Mg Tablet, 10 MG PO DAILY, (Reported) Entered as Reported by: DANIKA MOISE on 07/01/18 2100 Last Action: Last Taken Edited Fluoxetine HCl (Fluoxetine HCl) 20 Mg Capsule, 20 MG PO HS, (Reported) Entered as Reported by: NIEVES FELIPE on 11/18/22 1400 Last Action: Last Taken Edited Hydralazine HCl (Hydralazine HCl) 10 Mg Tablet, 30 MG PO BID, (Reported) Entered as Reported by: NIEVES FELIPE on 11/18/22 1400 Last Action: Last Taken Edited Losartan Potassium (Losartan Potassium) 100 Mg Tablet, 100 MG PO DAILY, (Reported) Entered as Reported by: NIEVES FELIPE on 11/18/221399 Last Action: Last Taken Edited Metformin HCl (Metformin HCl ER) 500 Mg Tab.er.24, 1,000 MG PO BID, (Reported) Entered as Reported by: FERMIN MORELOS on 11/18/22902 Last Action: Last Taken Edited Metoprolol Succinate (Metoprolol Succinate) 100 Mg Tab.er.24h, 100 MG PO BID Prescribed by: ROSSANA LAWSON on 11/19/22908 Last Action: Last Taken Edited Prazosin HCl (Prazosin HCl) 5 Mg Capsule, 5 MG PO HS, (Reported) Entered as Reported by: NIEVES FELIPE on 11/18/221399 Last Action: Last Taken Edited Quetiapine Fumarate (Quetiapine Fumarate) 400 Mg Tablet, 400 MG PO BID, (Reporte d) Entered as Reported by: NIEVES FELIPE on 11/18/221399 Last Action: Last Taken Edited Venlafaxine HCl (Venlafaxine HCl ER) 150 Mg Cap.er.24h, 150 MG PO HS, (Reported) Entered as Reported by: NIEVES FELIPE on 11/18/221399 Last Action: Last Taken Edited Vitamin D (Vitamin D3) 10 Mcg (400 Unit) Tablet, 1,000 UNIT PO DAILY, (Reported) Entered as Reported by: FERMIN MORELOS on 11/18/22902 Last Action: Last Taken Edited Discontinued Medications Carvedilol (Carvedilol) 12.5 Mg Tablet, 25 MG PO BID Discontinued Reason: No Longer Taking Prescribed by: PAMELA LAZO on 07/02/18 111 Chlorthalidone (Chlorthalidone) 50 Mg Tablet, 50 MG PO DAILY, (Reported) Discontinued Reason: Prescription changed Entered as Reported by: FERMIN MORELOS on 11/18/22902 Chlorthalidone (Chlorthalidone) 25 Mg Tablet, 25 MG PO DAILY, (Reported) Entered as Reported by: NIEVES FELIPE on 11/18/221399 Empagliflozin (Jardiance) 25 Mg Tablet, 25 MG PO DAILY, (Reported) Entered as Reported by: FERMIN MORELOS on 11/18/22902 Hydralazine HCl (Hydralazine HCl) 25 Mg Tablet, 50 MG PO Q8HR Discontinued Reason: No Longer Taking Prescribed by: PAMELA LAZO on 07/02/181116 Hydrochlorothiazide (Hydrochlorothiazide) 12.5 Mg Tablet, 12.5 MG PO DAILY Discontinued Reason: No Longer Taking Prescribed by: PAMELA LAZO on 07/02/181116 Hydroxyzine Pamoate (Hydroxyzine Pamoate) 50 Mg Capsule, 50 MG PO BID, (Reported) Discontinued Reason: No Longer Taking Entered as Reported by: DANIKA MOISE on 07/01/182117 Losartan Potassium (Cozaar) 50 Mg Tablet, 50 MG PO DAILY, (Reported) Discontinued Reason: Prescription changed Entered as Reported by: FERMIN MORELOS on 11/18/22902 Meloxicam (Meloxicam) 15 Mg Tablet, 15 MG PO DAILY, (Reported) Entered as Reported by: NIEVES FELIPE on 11/18/22 1400 Meloxicam, Submicronized (Meloxicam) 10 Mg Capsule, 15 MG PO DAILY, (Reported) Discontinued Reason: No Longer Taking Entered as Reported by: FERMIN MORELOS on 11/18/22902 Potassium Chloride (Potassium Chloride) 20 Meq Tablet.er, 20 MEQ PO BID, (R eported) Entered as Reported by: NIEVES FELIPE on 11/18/22 1400 Prazosin HCl (Prazosin HCl) 2 Mg Capsule, 2 MG PO HS, (Reported) Discontinued Reason: Prescription changed Entered as Reported by: FERMIN MORELOS on 11/18/22902 Quetiapine Fumarate (Quetiapine Fumarate) 400 Mg Tablet, 400 MG PO BID, (Reported) Discontinued Reason: No Longer Taking Entered as Reported by: DANIKA MOISE on 07/01/182117 Sitagliptin Phosphate (Januvia) 100 Mg Tablet, 100 MG PO DAILY, (Reported) Discontinued Reason: No Longer Taking Entered as Reported by: FERMIN MORELOS on 11/18/22902 Physical Exam-Cardiology Physical Exam Vital Signs/I&O 11/23/22 11/23/22 11/23/22 11/23/22 01:20 01:28 01:30 01:30 Temp 36.1 Pulse 71 74 75 75 Resp 20 25 14 B/P (MAP) 154/97 195/109 (134) 189/103 (130) Pulse Ox 97 97 100 O2 Delivery Room Air Room Air Room Air 11/23/22 11/23/22 11/23/22 11/23/22 02:00 02:24 02:30 02:45 Pulse 77 75 74 Resp 13 12 15 B/P (MAP) 184/105 (130) 168/101 (120) 170/103 (133) Pulse Ox 99 96 98 O2 Delivery Room Air Room Air Room Air Room Air 11/23/22 11/23/22 11/23/22 11/23/22 03:00 03:15 03:30 03:45 Pulse 66 68 73 71 Resp 13 12 17 16 B/P (MAP) 175/119 (135) 172/100 (125) 169/116 (136) 175/95 (119) Pulse Ox 98 97 95 95 O2 Delivery Room Air Room Air Room Air Room Air 11/23/22 11/23/22 11/23/22 11/23/22 04:00 04:09 05:00 06:00 Pulse 70 71 71 Resp 16 15 15 B/P (MAP) 168/88 (115) 163/95 (117) 175/109 (131) Pulse Ox 97 96 99 O2 Delivery Room Air Room Air Room Air Room Air 11/23/22 11/23/22 11/23/22 11/23/22 07:00 07:30 07:38 08:00 Temp 36.7 Pulse 71 73 69 Resp 12 11 B/P (MAP) 170/110 (130) 162/106 (124) Pulse Ox 97 96 O2 Delivery Room Air Room Air 11/23/22 11/23/22 11/23/22 11/23/22 09:00 10:00 11:00 11:39 Temp 36.2 Pulse 69 68 65 Resp 12 10 8 B/P (MAP) 169/100 (123) 163/105 (124) 167/96 (119) Pulse Ox 99 100 97 O2 Delivery Room Air Room Air Room Air 11/23/22 11/23/22 12:00 12:32 Pulse 65 67 Resp 10 B/P (MAP) 153/101 (118) Pulse Ox 97 O2 Delivery Room Air Capillary Refill : Less Than 3 Seconds Constitutional: AAO x 3, well-developed, well-nourished HEENT: EOMI, hearing is well preserved Neck: No carotid pulses are 2 + bilaterally, No with good upstrokes Respiratory: No accessory muscle use; chest expansion is symmetric, chest is bilaterally symmetric, other (good, bilateral air entry) Cardiovascular: No regular rate-rhythm; S1 and S2, systolic murmur (soft JUAN at card base) Gastrointestinal: No tender, No soft, No guarding, No rebound; audible bowel sounds Extremities: No clubbing, No cyanosis, No significant edema Neurologic/Psychiatric: oriented x 3, other (moves all limbs equally) Skin: normal color, warm/dry; No cyanosis, No cool, No diaphoresis, No rash on exposed areas, No ulcerations on exposed areas Data Review Labs Laboratory Tests 11/22/22 23:23: White Blood Count 10.2, Red Blood Count 5.42, Hemoglobin 14.4#, Hematocrit 45, Mean Corpuscular Volume 83, Mean Corpuscular Hemoglobin 27, Mean Corpuscular Hemoglobin Concent 32, Red Cell Distribution Width 16.6H, Platelet Count 275, Mean Platelet Volume 11.0, Immature Granulocyte % (Auto) 0, Neutrophils (%) ( Auto) 65, Lymphocytes (%) (Auto) 26, Monocytes (%) (Auto) 6, Eosinophils (%) (Auto) 2, Basophils (%) (Auto) 1, Neutrophils # (Auto) 6.6, Lymphocytes # (Auto) 2.7, Monocytes # (Auto) 0.7, Eosinophils # (Auto) 0.2, Basophils # (Auto) 0.1, Immature Granulocyte # (Auto) 0.0, Sodium Level 137, Potassium Level 3.5L, Chloride Level 100, Carbon Dioxide Level 23, Anion Gap 14, Blood Urea Nitrogen 15, Creatinine 1.47H, Estimat Glomerular Filtration Rate 57, BUN/Creatinine Ratio 10, Glucose Level 183H, Calcium Level 9.9, Corrected Calcium 9.7, Total Bilirubin 0.5, Aspartate Amino Transf (AST/SGOT) 16, Alanine Aminotransferase (ALT/SGPT) 27, Alkaline Phosphatase 76, Troponin I < 0.028, Total Protein 8.5H, Albumin 4.3 11/23/22 04:43: White Blood Count 8.7, Red Blood Count 5.16, Hemoglobin 13.7, Hematocrit 43, Mean Corpuscular Volume 83, Mean Corpuscular Hemoglobin 27, Mean Corpuscular Hemoglobin Concent 32, Red Cell Distribution Width 16.5H, Platelet Count 245, Mean Platelet Volume 11.1, Immature Granulocyte % (Auto) 0, Neutrophils (%) (Auto) 69, Lymphocytes (%) (Auto) 22, Monocytes (%) (Auto) 7, Eosinophils (%) (Auto) 1, Basophils (%) (Auto) 1, Neutrophils # (Auto) 6.1, Lymphocytes # (Auto) 2.0, Monocytes # (Auto) 0.6, Eosinophils # (Auto) 0.1, Basophils # (Auto) 0.0, Immature Granulocyte # (Auto) 0.0, Sodium Level 135, Potassium Level 3.7, Chloride Level 100, Carbon Dioxide Level 22, Anion Gap 13, Blood Urea Nitrogen 14, Creatinine 1.33H, Estimat Glomerular Filtration Rate 64, BUN/Creatinine Ratio 11, Glucose Level 221H, Calcium Level 9.3, Corrected Calcium 9.2, Total Bilirubin 0.5, Aspartate Amino Transf (AST/SGOT) 18, Alanine Aminotransferase (ALT/SGPT) 26, Alkaline Phosphatase 69, Total Protein 7.8, Albumin 4.1, Phosphorus Level 3.6, Magnesium Level 1.8 11/23/22 11:07: Glucometer 202H Laboratory Tests 11/22/22 23:23 11/23/22 04:43 A/P-Cardiology Assessment/Admission Diagnosis Uncontrolled HTN - improved with augmentation of antihypertensive regimen - renal artery duplex of 11-18-22 showed no evidence of stenosis - Echocardiogram of 11-18-22 showed LVEF 65-70%. LA mildly dilated DM 2 CKD 2 Chronic knee pain - routine NSAID tx H/O abdominal wall hernia resulting in scrotal hematoma in 2002 Elevated BMI of 45 Discussion and Recomendations * BB + amlodipine + ARB + hydralazine + doxazosin + spironolactone * May need further w/u for secondary hypertension on outpt basis * Monitor labs * Discussed with Dr Queen Clinical Quality Measures AMI/AHF: ASA po Prior to arrival: PAMELA Snell [facility] CCDS Nov 23, 2022 12:43
[2022-11-23] MEDS ORDERED: hydrALAZINE 25 MG TABLET PO SCH (13:00)
--- NOTE | 2022-11-23 19:19 | History & Physical-Hospitalist ---
History of Present Illness HPI/Chief Complaint Taurus Christopher Jr is a 52 year old male who presented with high blood pressure readings. He was recently admitted and discharged after a similar admission. He says he was not having any symptoms, just saw high blood pressures when he checked. He denies chest pain and shortness of breath. He denies vision changes. He says he did have a migraine when asked about headaches. He reports compliance with his medications. He says he has not been sleeping much. He says he had a sleep study which was "normal" a few months ago. Source: patient Exam Limitations: no limitations Date Seen 11/23/22 Time Seen by a Provider: 09:45 Attending Physician No,Local Physician PCP Admitting Physician: Shane Bishop MD Attending Physician: Marian Queen MD Referring Physician Date of Admission Nov 23, 2022 at 00:58 Home Medications & Allergies Home Medications Reviewed patient Home Medication Reconciliation performed by pharmacy medication reconciliations wireless technician and/or nursing. Patients Allergies have been reviewed. Allergies Allergies Coded Allergies No Known Drug Allergies (Unverified07/01/18) Past Ekifdcm-Qoqctj-Lmefba Hx Patient Social History Tobacco Use?: No Smoking Status: Never a Smoker Use of E-Cig and/or Vaping dev: No Substance use?: No Alcohol Use?: No Pt feels they are or have been: No Immunizations Up To Date Tetanus Booster (TDap): Unknown Hepatitis A: No Hepatitis B: No Date of Pneumonia Vaccine: Apr 04, 2018 Seasonal Allergies Seasonal Allergies: No Current Status Advance Directives: Unable to obtain Communicates: Verbally Primary Language: Vincentian Preferred Spoken Language: Vincentian Is interpretation needed?: No Past Medical History Hypertension Arthritis Anxiety, PTSD Blood Disorders: No Family Medical History Reviewed Nursing Family Hx No Pertinent Family Hx Review of Systems Constitutional: no symptoms reported Respiratory: no symptoms reported Cardiovascular: no symptoms reported Gastrointestinal: no symptoms reported Physical Exam Physical Exam Vital Signs Vital Signs - First Documented 11/22/22 22:28 Temp 37.0 Pulse 95 Resp 20 B/P (MAP) 154/97 (116) Pulse Ox 99 O2 Delivery Room Air Capillary Refill : Less Than 3 Seconds Height, Weight, BMI Height: 5'7.50" Weight: 274lbs. 5.0oz. 124.140932ng; 43.84 BMI Method:Stated General Appearance: No Apparent Distress, Obese HEENT: PERRL/EOMI, Pharynx Normal Neck: Normal Inspection, Supple Respiratory: Lungs Clear, Normal Breath Sounds, No Respiratory Distress Cardiovascular: Regular Rate, Rhythm, No Edema, No Murmur Gastrointestinal: Normal Bowel Sounds, Non Tender, Soft Extremity: Normal Inspection, No Pedal Edema Neurologic/Psychiatric: Alert, Normal Mood/Affect Skin: Normal Color, Warm/Dry Results Results/Procedures Labs Laboratory Tests 11/22/22 23:23 11/23/22 04:43 Patient resulted labs reviewed. Imaging: Reviewed Imaging Report Assessment/Plan Admission Diagnosis Hypertensive urgency Admission Status: Observation Assessment and Plan Hypertensive urgency HTN Cardiology consulted Continue home antihypertensives Started on Hydralazine Consider Spironolactone if needed T2DM Sliding scale insulin Anxiety Depression Continue home meds Morbid obesity Clinically significant, no acute management needs DVT prophylaxis: Lovenox Diagnosis/Problems Diagnosis/Problems (1) Hypertensive urgency Status: Acute (2) Diabetes mellitus Status: Chronic Qualifiers: Diabetes mellitus type: type 2 Diabetes mellitus long-term insulin use: without long-term use Diabetes mellitus complication status: with hypergly cemia Qualified Codes: E11.65 - Type 2 diabetes mellitus with hyperglycemia (3) Depression Status: Chronic (4) Morbid obesity Status: Chronic Clinical Quality Measures AMI/AHF: ASA po Prior to arrival: MARIAN Campoverde MD Nov 23, 2022 19:19
[2022-11-23] MEDS ORDERED: ENOXAPARIN 40 MG/0.4 ML SYRINGE SC SCH (19:45)
[2022-11-23 19:46] VITALS: BP 134/74
[2022-11-23] MEDS ORDERED: VENlafaxine XR 75 MG (EFFEXOR XR) CAP PO SCH (21:00)
[2022-11-23] MEDS: VENlafaxine XR 75 MG (EFFEXOR XR) CAP PO SCH (21:30)
[2022-11-23] MEDS: ENOXAPARIN 40 MG/0.4 ML SYRINGE SC SCH (21:30)
[2022-11-23] MEDS: FLUoxetine 20 MG CAPSULE PO SCH (21:31)
[2022-11-23] MEDS: QUEtiapine IMMEDIATE RELEASE 200 MG TABLET PO SCH (21:31)
[2022-11-23] MEDS: hydrALAZINE 25 MG TABLET PO SCH (21:31)
[2022-11-23 21:55] LABS: AMPHETAMINE SCREEN, URINE NEGATIVE (NEGATIVE); CANNABINOID SCREEN, URINE NEGATIVE (NEGATIVE); COCAINE SCREEN URINE NEGATIVE (NEGATIVE)
[2022-11-23 21:56] LABS: BARBITURATE SCREEN URINE NEGATIVE (NEGATIVE); METHADONE STAT NEGATIVE (NEGATIVE); OPIATE SCREEN URINE NEGATIVE (NEGATIVE); OXYCODONE STAT NEGATIVE (NEGATIVE); PROPOXYPHENE STAT NEGATIVE (NEGATIVE); TRICYCLIC ANTIDEPRESSANTS SCRE NEGATIVE (NEGATIVE)
[2022-11-23 23:22] VITALS: BP 84/53
[2022-11-24] VITALS (7 sets, daily range): BP systolic 80–136; BP diastolic 43–72
[2022-11-24] MEDS: inSUlin ASPART 1 UNIT/0.01 ML (PER UNIT) SC SCH ×4 (05:43→20:30)
[2022-11-24 05:49] LABS: BASOPHILS % (AUTO) 0 % (0-10); EOSINOPHILS % (AUTO) 1 % (0-10); HEMATOCRIT 38 % (40-54); HEMOGLOBIN 12.3 g/dL (13.3-17.7); LYMPHOCYTES # (AUTO) 1.4 10^3/uL (1.0-4.0); LYMPHOCYTES % (AUTO) 18 % (12-44); MEAN CORPUSCULAR HEMOGLOBIN 27 pg (25-34); MEAN CORPUSCULAR HGB CONC 32 g/dL (32-36); MEAN CORPUSCULAR VOLUME 83 fL (80-99); MEAN PLATELET VOLUME 11.1 fL (9.0-12.2); MONOCYTES # (AUTO) 0.5 10^3/uL (0.0-1.0); MONOCYTES % (AUTO) 6 % (0-12); NEUTROPHILS # (AUTO) 6.1 10^3/uL (1.8-7.8); NEUTROPHILS % (AUTO) 75 % (42-75); PLATELET COUNT 210 10^3/uL (130-400); WHITE BLOOD COUNT 8.2 10^3/uL (4.3-11.0)
[2022-11-24 06:05] LABS: CALCIUM 8.8 MG/DL (8.5-10.1); CREATININE SERUM 3.06 MG/DL (0.60-1.30); POTASSIUM 3.7 MMOL/L (3.6-5.0)
[2022-11-24] MEDS: POTASSIUM CHLORIDE 20 MEQ TABLET PO SCH (06:07)
[2022-11-24] MEDS: POTASSIUM CL 10MEQ/50ML IVPB 50 ML IV SCH (06:07)
[2022-11-24] MEDS: MAGNESIUM 1 GM/100 ML IVPB 100 ML IV SCH (06:48)
[2022-11-24] MEDS ORDERED: metFORMIN 500 MG TABLET PO SCH (07:00)
[2022-11-24 07:14] LABS: CLARITY,URINE CLEAR; COLOR,URINE YELLOW; PH,URINE 5.5 (5-9)
[2022-11-24 07:15] LABS: BACTERIA,URINE NEGATIVE /HPF; BILIRUBIN,URINE NEGATIVE (NEGATIVE); GLUCOSE, URINE (UA) 2+ (NEGATIVE); KETONES,URINE NEGATIVE (NEGATIVE); LEUKOCYTE ESTERASE ,URINE NEGATIVE (NEGATIVE); NITRITE,URINE NEGATIVE (NEGATIVE); PROTEIN,URINE 1+ (NEGATIVE)
[2022-11-24 07:16] LABS: SQUAMOUS EPITHELIAL CELL,UR RARE /HPF
[2022-11-24] MEDS: ENOXAPARIN 40 MG/0.4 ML SYRINGE SC SCH ×2 (08:19→20:30)
[2022-11-24] MEDS: amLODIPine 10 MG TABLET PO SCH (08:24)
[2022-11-24] MEDS: hydrALAZINE 25 MG TABLET PO SCH (08:26)
[2022-11-24] MEDS: LOSARTAN 100 MG TABLET PO SCH (08:26)
[2022-11-24] MEDS: QUEtiapine IMMEDIATE RELEASE 200 MG TABLET PO SCH ×2 (08:40→20:31)
[2022-11-24] MEDS ORDERED: POTASSIUM CHLORIDE 20 MEQ TABLET PO ONE (09:00)
[2022-11-24] MEDS ORDERED: DOXA4TAB2 PO (11:29)
[2022-11-24] MEDS ORDERED: MTP100TCR PO (11:29)
[2022-11-24] MEDS ORDERED: AMLO-251 PO (11:29)
[2022-11-24] MEDS ORDERED: LOSA100T58 PO (11:29)
--- NOTE | 2022-11-24 11:31 | Progress Note - Cardiology ---
Cardiology SOAP Progress Note Subjective: No c/o CP or SOB Fatigued this morning Objective: I&O/Vital Signs 11/24/22 11/25/22 11/25/22 11/25/22 23:21 01:00 04:55 07:05 Temp 36.5 36.8 Pulse 67 65 70 67 Resp 18 18 B/P (MAP) 125/56 (79) 138/73 (94) Pulse Ox 98 96 O2 Delivery Room Air Room Air 11/25/22 11/25/22 08:00 08:02 Temp 36.6 Pulse 66 Resp 16 B/P (MAP) 158/86 (110) Pulse Ox 95 95 O2 Delivery Room Air Room Air 11/25/22 00:00 Intake Total 1230 ml Output Total 650 ml Balance 580 ml Weight (Pounds): 274 Weight (Ounces): 5.0 Weight (Calculated Kilograms): 124.978799 Constitutional: AAO x 3, well-developed, well-nourished Respiratory: No accessory muscle use; chest expansion is symmetric, chest is bilaterally symmetric, other (good, bilateral air entry) Cardiovascular: No regular rate-rhythm; S1 and S2, systolic murmur (soft JUAN at card base) Gastrointestional: No tender, No soft, No guarding, No rebound; audible bowel sounds Extremities: No clubbing, No cyanosis, No significant edema Neurologic/Psychiatric: oriented x 3, other (moves all limbs equally) Skin: normal color, warm/dry; No cyanosis, No cool, No diaphoresis, No rash on exposed areas, No ulcerations on exposed areas Results/Procedures: Labs Laboratory Tests 11/24/22 10:32: Glucometer 195H 11/24/22 15:42: Glucometer 114H 11/24/22 16:45: Sodium Level 135, Potassium Level 3.8, Chloride Level 103, Carbon Dioxide Level 21, Anion Gap 11, Blood Urea Nitrogen 26H, Creatinine 4.40#H, Estimat Glomerular Filtration Rate 15, BUN/Creatinine Ratio 6, Glucose Level 122H, Calcium Level 8.5 11/24/22 19:29: Glucometer 185H 11/25/22 04:58: Glucometer 163H 11/25/22 05:08: Sodium Level 135, Potassium Level 3.5L, Chloride Level 105, Carbon Dioxide Level 21, Anion Gap 9, Blood Urea Nitrogen 26H, Creatinine 2.98#H, Estimat Glomerular Filtration Rate 24, BUN/Creatinine Ratio 9, Glucose Level 153H, Calcium Level 8.2L, Magnesium Level 2.1 Microbiology 11/23/22 MRSA Screen - Final, Complete MRSA not isolated A/P: Assessment: Uncontrolled HTN - now hypotensive - renal artery duplex of 11-18-22 showed no evidence of stenosis - Echocardiogram of 11-18-22 showed LVEF 65-70%. LA mildly dilated SONJA - likely d/t hypotension DM 2 CKD 2 Chronic knee pain - routine NSAID tx H/O abdominal wall hernia resulting in scrotal hematoma in 2002 Elevated BMI of 45 Plan: * Hypotensive overnight - reduce anti-hypertensive regimen * SONJA - likely d/t hypotension - give IVF today (reduce regimen) * Hold Metformin for now d/t Cr greater than 3.0 today * May need further w/u for secondary hypertension on outpt basis * Monitor labs * Advise out pt sleep study Clinical Quality Measures AMI/AHF: ASA po Prior to arrival: ROSSANA Barth [facility] Nov 24, 2022 11:31
[2022-11-24] MEDS: NS IV 1000 ML 1,000 ML IV SCH ×2 (11:44→20:31)
[2022-11-24 17:05] LABS: POTASSIUM 3.8 MMOL/L (3.6-5.0)
[2022-11-24 17:06] LABS: CALCIUM 8.5 MG/DL (8.5-10.1)
[2022-11-24 17:11] LABS: CREATININE SERUM 4.4 MG/DL (0.60-1.30)
--- NOTE | 2022-11-24 17:15 | Progress Note - Hospitalist ---
Subjective HPI/CC On Admission Date Seen by Provider: Nov 24, 2022 Time Seen by Provider: 11:20 Taurus Christopher Jr is a 52 year old male who presented with high blood pressure readings. He was recently admitted and discharged after a similar admission. He says he was not having any symptoms, just saw high blood pressures when he check ed. He denies chest pain and shortness of breath. He denies vision changes. He says he did have a migraine when asked about headaches. He reports compliance with his medications. He says he has not been sleeping much. He says he had a sleep study which was "normal" a few months ago. Subjective/Events-last exam He is feeling better. He has no complaints. He slept well. He has not had any more migraines. He denies lightheadedness and dizziness. Objective Exam Vital Signs Vital Signs Date Time Temp Pulse Resp B/P (MAP) Pulse Ox O2 Delivery O2 Flow Rate FiO2 11/24/22 15:59 36.1 59 20 113/62 (79) 96 Room Air Capillary Refill : Less Than 3 Seconds General Appearance: No Apparent Distress, Obese Respiratory: Lungs Clear, No Respiratory Distress Cardiovascular: Regular Rate, Rhythm, No Murmur Gastrointestinal: Normal Bowel Sounds, Soft Extremity: Normal Inspection, No Pedal Edema Neurologic/Psychiatric: Alert, Normal Mood/Affect Results/Procedures Lab Laboratory Tests 11/24/22 05:18 11/24/22 16:45 Patient resulted labs reviewed. Imaging: Reviewed Imaging Report Assessment/Plan Assessment and Plan Assess & Plan/Chief Complaint Hypertensive urgency HTN Cardiology following BP low overnight, within normal limits this morning Metoprolol Losartan Amlodipine Stop Hydralazine Stop Doxazosin OSNJA Cr increased, possibly due to hypotension IV fluids Monitor T2DM Sliding scale insulin Hold Metformin Anxiety Depression Continue home meds Morbid obesity Clinically significant, no acute management needs DVT prophylaxis: Lovenox Diagnosis/Problems Diagnosis/Problems (1) Hypertensive urgency Status: Acute (2) Diabetes mellitus Status: Chronic Qualifiers: Diabetes mellitus type: type 2 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
[2022-11-24] MEDS: VENlafaxine XR 75 MG (EFFEXOR XR) CAP PO SCH (17:31)
--- NOTE | 2022-11-24 18:00 | Progress Note - Cardiology ---
Cardiology SOAP Progress Note Subjective: No cp or palp or syncope or shortness of breath No n/v/d No focal weakness Objective: I&O/Vital Signs 11/24/22 11/24/22 11/24/22 11/24/22 07:31 07:36 08:00 08:00 Temp 36.8 Pulse 61 61 58 Resp 16 18 B/P (MAP) 102/59 (73) 123/60 (81) Pulse Ox 97 95 97 O2 Delivery Room Air Room Air Room Air 11/24/22 11/24/22 11/24/22 11:16 13:07 15:59 Temp 36.8 36.1 Pulse 63 62 59 Resp 16 20 B/P (MAP) 107/61 (76) 113/62 (79) Pulse Ox 96 96 O2 Delivery Room Air Room Air 11/24/22 00:00 Intake Total 600 ml Output Total 200 ml Balance 400 ml Weight (Pounds): 274 Weight (Ounces): 5.0 Weight (Calculated Kilograms): 124.383156 Constitutional: AAO x 3, well-developed, well-nourished Respiratory: No accessory muscle use; chest expansion is symmetric, chest is bilaterally symmetric, other (good, bilateral air entry) Cardiovascular: No regular rate-rhythm; S1 and S2, systolic murmur (soft JUAN at card base) Gastrointestional: No tender, No soft, No guarding, No rebound; audible bowel sounds Extremities: No clubbing, No cyanosis, No significant edema Neurologic/Psychiatric: oriented x 3, other (moves all limbs equally) Skin: normal color, warm/dry; No cyanosis, No cool, No diaphoresis, No rash on exposed areas, No ulcerations on exposed areas Results/Procedures: Labs Laboratory Tests 11/23/22 21:35: Urine Color YELLOW, Urine Clarity CLEAR, Urine pH 5.5, Urine Specific [place] 1.010L, Urine Protein 1+H, Urine Glucose (UA) 2+H, Urine Ketones NEGATIVE, Urine Nitrite NEGATIVE, Urine Bilirubin NEGATIVE, Urine Urobilinogen 0.2, Urine Leukocyte Esterase NEGATIVE, Urine RBC (Auto) NEGATIVE, Urine RBC NONE, Urine WBC NONE, Urine Squamous Epithelial Cells RARE, Urine Crystals NONE, Urine Bacteria NEGATIVE, Urine Casts NONE, Urine Mucus NEGATIVE, Urine Culture Indicated NO, Urine Opiates Screen NEGATIVE, Urine Oxycodone Screen NEGATIVE, Urine Methadone Screen NEGATIVE, Urine Propoxyphene Screen NEGATIVE, Urine Barbiturates Screen NEGATIVE, Ur Tricyclic Antidepressants Screen NEGATIVE, Urine Phencyclidine Screen NEGATIVE, Urine Amphetamines Screen NEGATIVE, Urine Methamphetamines Screen NEGATIVE, Urine Benzodiazepines Screen NEGATIVE, Urine Cocaine Screen NEGATIVE, Urine Cannabinoids Screen NEGATIVE 11/24/22 05:05: Glucometer 226H 11/24/22 05:18: White Blood Count 8.2, Red Blood Count 4.61, Hemoglobin 12.3L, Hematocrit 38L, Mean Corpuscular Volume 83, Mean Corpuscular Hemoglobin 27, Mean Corpuscular Hemoglobin Concent 32, Red Cell Distribution Width 16.5H, Platelet Count 210, Mean Platelet Volume 11.1, Immature Granulocyte % (Auto) 0, Neutrophils (%) (Auto) 75, Lymphocytes (%) (Auto) 18, Monocytes (%) (Auto) 6, Eosinophils (%) (Auto) 1, Basophils (%) (Auto) 0, Neutrophils # (Auto) 6.1, Lymphocytes # (Auto) 1.4, Monocytes # (Auto) 0.5, Eosinophils # (Auto) 0.0, Basophils # (Auto) 0.0, Immature Granulocyte # (Auto) 0.0, Sodium Level 136, Potassium Level 3.7, Chloride Level 102, Carbon Dioxide Level 22, Anion Gap 12, Blood Urea Nitrogen 21H, Creatinine 3.06#H, Estimat Glomerular Filtration Rate 24, BUN/Creatinine Ratio 7, Glucose Level 229H, Calcium Level 8.8 11/24/22 06:02: Magnesium Level 2.3 11/24/22 10:32: Glucometer 195H 11/24/22 15:42: Glucometer 114H 11/24/22 16:45: Sodium Level 135, Potassium Level 3.8, Chloride Level 103, Carbon Dioxide Level 21, Anion Gap 11, Blood Urea Nitrogen 26H, Creatinine 4.40#H, Estimat Glomerular Filtration Rate 15, BUN/Creatinine Ratio 6, Glucose Level 122H, Calcium Level 8.5 Microbiology 11/23/22 MRSA Screen - Final, Complete MRSA not isolated Laboratory Tests 11/22/22 23:23 11/23/22 04:43 11/24/22 05:18 11/24/22 16:45 A/P: Assessment: Labile hypertension: severely elevated bp alternating with relatively low bp - renal artery duplex of 11-18-22 showed no evidence of stenosis - Echocardiogram of 11-18-22 showed LVEF 65-70%. LA mildly dilated SONJA - d/t hypotension or due to malignant hypertension DM 2 CKD 2 Chronic knee pain - routine NSAID tx H/O abdominal wall hernia resulting in scrotal hematoma in 2002 Elevated BMI of 45 Plan: * Hypotensive overnight - reduce anti-hypertensive regimen * SONJA - possibly d/t hypotension but malignant hypertension leading to renal failure is also a possiblity - give IVF today (reduce regimen) * Hold Metformin for now d/t Cr greater than 3.0 today * If renal function continues to deteriorate, please consider transfer to a tertiary care facility with nephrology support * Monitor labs * Advise out pt sleep study Clinical Quality Measures AMI/AHF: ASA po Prior to arrival: PAMELA Snell MD FACP FAC CCDS Nov 24, 2022 18:00
[2022-11-24] MEDS: FLUoxetine 20 MG CAPSULE PO SCH (20:29)
[2022-11-25] MEDS: NS IV 1000 ML 1,000 ML IV SCH (04:41)
[2022-11-25 04:55] VITALS: BP 138/73
[2022-11-25 05:49] LABS: POTASSIUM 3.5 MMOL/L (3.6-5.0)
[2022-11-25 05:50] LABS: CALCIUM 8.2 MG/DL (8.5-10.1)
[2022-11-25 05:54] LABS: CREATININE SERUM 2.98 MG/DL (0.60-1.30)
[2022-11-25 05:56] LABS: MAGNESIUM 2.1 MG/DL (1.6-2.4)
[2022-11-25] MEDS: POTASSIUM CHLORIDE 20 MEQ TABLET PO SCH (05:56)
[2022-11-25] MEDS: POTASSIUM CL 10MEQ/50ML IVPB 50 ML IV SCH (05:56)
[2022-11-25] MEDS: MAGNESIUM 1 GM/100 ML IVPB 100 ML IV SCH (05:57)
[2022-11-25] MEDS: inSUlin ASPART 1 UNIT/0.01 ML (PER UNIT) SC SCH ×2 (06:20→10:40)
[2022-11-25] MEDS: ENOXAPARIN 40 MG/0.4 ML SYRINGE SC SCH (07:49)
[2022-11-25 08:02] VITALS: BP 158/86
[2022-11-25] MEDS: amLODIPine 10 MG TABLET PO SCH (08:40)
[2022-11-25] MEDS: QUEtiapine IMMEDIATE RELEASE 200 MG TABLET PO SCH (08:41)
[2022-11-25] MEDS: LOSARTAN 100 MG TABLET PO SCH (08:41)
[2022-11-25] MEDS ORDERED: POTASSIUM CHLORIDE 20 MEQ TABLET PO ONE (09:00)
--- NOTE | 2022-11-25 09:28 | Progress Note - Cardiology ---
Cardiology SOAP Progress Note Subjective: Lying in bed Family x 1 at the bedside States he feels well and wants to go home today Objective: I&O/Vital Signs Weight (Pounds): 274 Weight (Ounces): 5.0 Weight (Calculated Kilograms): 124.573328 Constitutional: AAO x 3, well-developed, well-nourished Respiratory: No accessory muscle use; chest expansion is symmetric, chest is bilaterally symmetric, other (good, bilateral air entry) Cardiovascular: No regular rate-rhythm; S1 and S2, systolic murmur (soft JUAN at card base) Gastrointestional: No tender, No soft, No guarding, No rebound; audible bowel sounds Extremities: No clubbing, No cyanosis, No significant edema Neurologic/Psychiatric: oriented x 3, other (moves all limbs equally) Skin: normal color, warm/dry; No cyanosis, No cool, No diaphoresis, No rash on exposed areas, No ulcerations on exposed areas Results/Procedures: Labs Microbiology 11/23/22 MRSA Screen - Final, Complete MRSA not isolated A/P: Assessment: Labile hypertension: severely elevated bp alternating with relatively low bp - renal artery duplex of 11-18-22 showed no evidence of stenosis - Echocardiogram of 11-18-22 showed LVEF 65-70%. LA mildly dilated SONJA - d/t hypotension or due to malignant hypertension - improved with IVF DM 2 CKD 2 Chronic knee pain - routine NSAID tx - advise cessation H/O abdominal wall hernia resulting in scrotal hematoma in 2002 Elevated BMI of 45 Plan: * BP controlled with augmentation of BP meds * SONJA - possibly d/t hypotension but malignant hypertension leading to renal failure is also a possiblity - Cr improved - continue IVF * Hold Metformin for now d/t Cr greater than 3.0 today * If renal function continues to deteriorate, please consider transfer to a tertiary care facility with nephrology support * Monitor labs * Advise out pt sleep study Clinical Quality Measures AMI/AHF: ASA po Prior to arrival: ROSSANA Barth Nov 25, 2022 09:28
[2022-11-25 11:27] VITALS: BP 147/87
[2022-11-25 12:54] VITALS: BP 147/87
--- NOTE | 2022-11-25 16:10 | Discharge Summary ---
Discharge Summary Hospital Course Problems/Dx: (1) Hypertensive urgency Status: Acute (2) Diabetes mellitus Status: Chronic Qualifiers: Qualified Codes: E11.65 - Type 2 diabetes mellitus with hyperglycemia (3) Depression Status: Chronic (4) Morbid obesity Status: Chronic (5) SONJA (acute kidney injury) Status: Acute Hospital Course Date of Admission: Nov 23, 2022 at 00:58 Admission Diagnosis : HTN urgency Family Physician/Provider: Shital Willis Physician Date of Discharge: 11/25/22 Discharge Diagnosis: HTN urgency, SONJA due to ATN Hospital Course: Taurus Christopher Jr is a 52 year old male who was admitted with hypertensive urgency. He was recently discharged after a similar hospitalization. Cardiology was consulted and assisted with his care. He reported compliance with his home meds. His home meds were continued and he was switched from Prazosin to Doxazosin. His blood pressure subsequently dropped with MAPs in the 50s. He developed an SONJA presumably due to ATN. His creatinine increased and his urine output was decreased. He was started on IV fluids. His urine output increased and his renal function began to improve. He was discharged home on Metoprolol, Amlodipine, Losartan, and Doxazosin. He was instructed to check his BP at least in the evening and if low (<120 SBP) to hold his nighttime meds. He should follow up with his PCP, Dr. Hernandez, in about a week. He needs to have a repeat BMP to follow up his kidney function early next week. He was discharged home in stable condition. Labs and Pending Lab Test: Laboratory Tests 11/24/22 16:45: Sodium Level 135, Potassium Level 3.8, Chloride Level 103, Carbon Dioxide Level 21, Anion Gap 11, Blood Urea Nitrogen 26H, Creatinine 4.40#H, Estimat Glomerular Filtration Rate 15, BUN/Creatinine Ratio 6, Glucose Level 122H, Calcium Level 8.5 11/24/22 19:29: Glucometer 185H 11/25/22 04:58: Glucometer 163H 11/25/22 05:08: Sodium Level 135, Potassium Level 3.5L, Chloride Level 105, Carbon Dioxide Level 21, Anion Gap 9, Blood Urea Nitrogen 26H, Creatinine 2.98#H, Estimat Glomerular Filtration Rate 24, BUN/Creatinine Ratio 9, Glucose Level 153H, Calcium Level 8.2L, Magnesium Level 2.1 11/25/22 10:34: Glucometer 189H Microbiology 11/23/22 MRSA Screen - Final, Complete MRSA not isolated Home Meds Active Doxazosin Mesylate 4 Mg Tablet 4 Mg PO HS 30 Days Metoprolol Succinate 100 Mg Tab.er.24h 100 Mg PO BID 30 Days Losartan Potassium 100 Mg Tablet 100 Mg PO DAILY 30 Days Amlodipine Besylate 10 Mg Tablet 10 Mg PO DAILY 30 Days Reported Fluoxetine HCl 20 Mg Capsule 20 Mg PO HS Venlafaxine HCl ER (Venlafaxine HCl) 150 Mg Cap.er.24h 150 Mg PO HS Quetiapine Fumarate 400 Mg Tablet 400 Mg PO BID Metformin HCl ER (Metformin HCl) 500 Mg Tab.er.24 1,000 Mg PO BID TAKES 2 (500MG) TABS Vitamin D3 (Vitamin D) 10 Mcg (400 Unit) Tablet 1,000 Unit PO DAILY Assessment/Pt Instructions see instructions Discharge Planning: >30 minutes discharge planning Discharge Instructions Discharge Diet: Low Sodium Diet Activity as Tolerated: Yes Consultations CArdiology Discharge Physical Examination Vital Signs Vital Signs Date Time Temp Pulse Resp B/P (MAP) Pulse Ox O2 Delivery O2 Flow Rate FiO2 11/25/22 12:54 36.8 63 16 147/87 96 Room Air General Appearance: No Apparent Distress, Obese Respiratory: Lungs Clear, No Respiratory Distress Cardiovascular: Regular Rate, Rhythm, No Murmur Gastrointestinal: Normal Bowel Sounds, Soft Extremity: Normal Inspection, No Pedal Edema Skin: Normal Color, Warm/Dry Neurologic/Psychiatric: Alert, Normal Mood/Affect Allergies: Coded Allergies: No Known Drug Allergies (Unverified , 07/01/18) Discharge Summary Date of Admission Nov 23, 2022 at 00:58 Date of Discharge Nov 25, 2022 at 12:59 Discharge Date: Nov 25, 2022 Discharge Time: 12:59 Admission Diagnosis Hypertensive urgency Consults/Procedures Consulations CArdiology Discharge Diagnosis Hypertensive urgency HTN SONJA ATN T2DM Anxiety Depression Morbid obesity (1) Hypertensive urgency Status: Acute (2) Diabetes mellitus Status: Chronic Qualifiers: Qualified Codes: E11.65 - Type 2 diabetes mellitus with hyperglycemia (3) Depression Status: Chronic (4) Morbid obesity Status: Chronic (5) SONJA (acute kidney injury) Status: Acute Clinical Quality Measures AMI/AHF: ASA po Prior to arrival: MARIAN Campoverde MD Nov 25, 2022 16:10
== END 2022-11-25 12:59 | disposition home or self-care (01) ==
LOC: EDUNIT# 21:48 → ER 21:50 → ICU 11-23 00:58 → UNDOADMOB 11-23 00:58 → ICU 11-23 02:07 → 4TH 11-23 15:30 → ICU 11-23 15:30 → UNDODISOB 11-25 12:59
PROVIDERS: ADMIT Internal Medicine; ATTEND Internal Medicine
DX: I16.0 Hypertensive urgency (principal); E11.65 Type 2 diabetes mellitus with hyperglycemia; E66.01 Morbid (severe) obesity due to excess calories; I10 Essential (primary) hypertension; N17.0 Acute kidney failure with tubular necrosis; E11.9 Type 2 diabetes mellitus without complications; F41.9 Anxiety disorder, unspecified; F32.A Depression, unspecified; Z79.899 Other long term (current) drug therapy; Z68.42 Body mass index [BMI] 45.0-49.9, adult; Z79.84 Long term (current) use of oral hypoglycemic drugs
CPT/HCPCS: 36415; 80048; 80053; 80306; 81000; 82947; 83735; 84100; 84484; 85025; 87081; 93005; 93041; 96366; 96372; 96374; 96375; G0378